=== PATIENT | female | born 1975 | race Caucasian/White ===

== ENCOUNTER 2020-01-12 11:50 | Outpatient (REF) | payer OTHER, SELFPAY ==
[2020-01-12 13:47] LABS: MANUAL DIFF FLAG NO
[2020-01-12 14:02] LABS: Basophils Absolute Auto 0.1 X10*3/uL (0.0-0.2); Basophils Percent Auto 0.8 % (0-2); Eosinophils Absolute Auto 0.3 X10*3/uL (0.0-0.4); Eosinophils Percent Auto 3.8 % (0-4); Hematocrit 36.4 % (37-47); Hemoglobin 11.2 g/dl (12.0-16.0); Imm Gran Abs Auto 0.03 X10*3/uL (0.00-0.03); Imm Gran Pct Auto 0.5 % (0.0-0.4); Lymphocytes Absolute Auto 1.6 X10*3/uL (1.2-4.9); Lymphocytes Percent Auto 24.8 % (20-40); Mean Corpuscular HGB Conc 30.8 g/dl (31.0-35.0); Mean Corpuscular Hemoglobin 24.7 pg (27.0-33.0); Mean Corpuscular Volume 80.4 fL (80-98); Mean Platelet Volume 10.3 fL (9.4-12.3); Monocytes Absolute Auto 0.4 X10*3/uL (0.1-1.2); Monocytes Percent Auto 5.7 % (2-11); Neutrophils Absolute Auto 4.2 X10*3/uL (2.0-8.3); Neutrophils Percent Auto 64.4 % (45-73); Platelet Count 239 X10*3/uL (160-400); Red Blood Count 4.53 X10*6/uL (4.20-5.50); Red Cell Distribution Width 18.6 % (11.0-16.0); White Blood Count 6.5 X10*3/uL (4.8-10.8)
[2020-01-12 14:26] LABS: Iron 350 mcg/dL (30-160); Percent Iron Saturation 88 % (15-50); Total Iron Binding Capacity 398 mcg/dL (228-428); Unsaturated Iron Binding 48 ug/dL
== END 2020-01-12 11:51 | disposition home or self-care (01) ==
LOC: HO.10HDL 11:50
PROVIDERS: Visit Provider Internal Medicine
DX: D64.9 Anemia, unspecified (principal)
CPT/HCPCS: 36415; 83540; 85025

== ENCOUNTER 2020-03-09 15:02 | Outpatient (REF) | payer OTHER, SELFPAY ==
--- NOTE | 2020-03-09 | XR_ITS ---
EXAMINATION: XR CHEST CLINICAL INFORMATION: Cough. Rule out pneumonia. COMPARISON: 07/30/2019 TECHNIQUE: 2 views of the chest were obtained. FINDINGS: The lungs are well expanded. There is no focal consolidation, edema, or effusion. No pneumothorax. The cardiomediastinal silhouette is within normal limits. No acute osseous abnormality. XR/XR chest 2V IMPRESSION: Clear lungs.
== END 2020-03-09 15:03 | disposition home or self-care (01) ==
LOC: HO.XRAY 15:02
PROVIDERS: PCP Internal Medicine; Visit Provider Internal Medicine
DX: R05 Cough (principal)
CPT/HCPCS: 71046

== ENCOUNTER 2020-05-11 11:17 | Outpatient (REF) | payer OTHER, SELFPAY ==
[2020-05-11 13:22] LABS: MANUAL DIFF FLAG NO
[2020-05-11 13:26] LABS: Basophils Absolute Auto 0.1 X10*3/uL (0.0-0.2); Basophils Percent Auto 0.8 % (0-2); Eosinophils Absolute Auto 0.2 X10*3/uL (0.0-0.4); Eosinophils Percent Auto 2.6 % (0-4); Hematocrit 38.3 % (37-47); Hemoglobin 12.2 g/dl (12.0-16.0); Imm Gran Abs Auto 0.01 X10*3/uL (0.00-0.03); Imm Gran Pct Auto 0.2 % (0.0-0.4); Lymphocytes Absolute Auto 1.8 X10*3/uL (1.2-4.9); Lymphocytes Percent Auto 27.8 % (20-40); Mean Corpuscular HGB Conc 31.9 g/dl (31.0-35.0); Mean Corpuscular Hemoglobin 27.2 pg (27.0-33.0); Mean Corpuscular Volume 85.5 fL (80-98); Mean Platelet Volume 10.9 fL (9.4-12.3); Monocytes Absolute Auto 0.4 X10*3/uL (0.1-1.2); Monocytes Percent Auto 6.6 % (2-11); Neutrophils Absolute Auto 4.1 X10*3/uL (2.0-8.3); Platelet Count 211 X10*3/uL (160-400); Red Blood Count 4.48 X10*6/uL (4.20-5.50); Red Cell Distribution Width 13.2 % (11.0-16.0); White Blood Count 6.6 X10*3/uL (4.8-10.8)
[2020-05-11 13:54] LABS: Alanine Aminotransferase 12 U/L (0-31); Albumin Level 4.2 g/dL (3.5-5.0); Alkaline Phosphatase 70 U/L (39-117); Anion Gap 11 (12-20); Aspartate Amino Transferase 19 U/L (5-31); Blood Urea Nitrogen 11 mg/dL (9-16); Calcium 9.2 mg/dL (8.4-10.2); Carbon Dioxide 29 mmol/L (22-29); Chloride 104 mmol/L (96-108); Estimated Glomerular Filt Rate > 60; Glucose Random 86 mg/dL (60-115); Iron 194 mcg/dL (30-160); Percent Iron Saturation 46 % (15-50); Potassium 4.3 mmol/L (3.3-5.1); Sodium 140 mmol/L (135-145); Total Iron Binding Capacity 421 mcg/dL (228-428); Total Protein 7.4 g/dL (6.5-8.0); Unsaturated Iron Binding 227 ug/dL
== END 2020-05-11 11:18 | disposition home or self-care (01) ==
LOC: HO.10HDL 11:17
PROVIDERS: Visit Provider Internal Medicine
DX: G21.9 Secondary parkinsonism, unspecified (principal); D64.9 Anemia, unspecified
CPT/HCPCS: 36415; 80053; 83540; 85025

== ENCOUNTER 2020-11-01 15:33 | Outpatient (REF) | payer OTHER, SELFPAY ==
[2020-11-01 16:16] LABS: MANUAL DIFF FLAG NO
[2020-11-01 16:19] LABS: Basophils Absolute Auto 0.1 X10*3/uL (0.0-0.2); Basophils Percent Auto 0.5 % (0-2); Eosinophils Absolute Auto 0.2 X10*3/uL (0.0-0.4); Eosinophils Percent Auto 1.8 % (0-4); Hemoglobin 11.3 g/dl (12.0-16.0); Imm Gran Abs Auto 0.03 X10*3/uL (0.00-0.03); Imm Gran Pct Auto 0.3 % (0.0-0.4); Lymphocytes Percent Auto 21.4 % (20-40); Mean Corpuscular HGB Conc 31.4 g/dl (31.0-35.0); Mean Corpuscular Hemoglobin 26.1 pg (27.0-33.0); Mean Corpuscular Volume 83.1 fL (80-98); Mean Platelet Volume 10.9 fL (9.4-12.3); Monocytes Absolute Auto 0.7 X10*3/uL (0.1-1.2); Monocytes Percent Auto 7.2 % (2-11); Neutrophils Absolute Auto 6.4 X10*3/uL (2.0-8.3); Neutrophils Percent Auto 68.8 % (45-73); Platelet Count 245 X10*3/uL (160-400); Red Blood Count 4.33 X10*6/uL (4.20-5.50); Red Cell Distribution Width 13.4 % (11.0-16.0); White Blood Count 9.3 X10*3/uL (4.8-10.8)
[2020-11-01 16:59] LABS: Alanine Aminotransferase 9 U/L (0-31); Albumin Level 4.1 g/dL (3.5-5.0); Alkaline Phosphatase 71 U/L (39-117); Anion Gap 12 (12-20); Aspartate Amino Transferase 17 U/L (5-31); Bilirubin Total 0.6 mg/dL (0.0-1.0); Blood Urea Nitrogen 12 mg/dL (9-16); C Reactive Protein 0.13 mg/dL (< or = 0.50); Calcium 9.3 mg/dL (8.4-10.2); Carbon Dioxide 24 mmol/L (22-29); Chloride 110 mmol/L (96-108); Estimated Glomerular Filt Rate > 60; Glucose Random 111 mg/dL (60-115); Potassium 4.1 mmol/L (3.3-5.1); Sodium 142 mmol/L (135-145); Total Protein 7.3 g/dL (6.5-8.0)
== END 2020-11-01 15:34 | disposition home or self-care (01) ==
LOC: HO.LAB 15:33
PROVIDERS: PCP Internal Medicine; Visit Provider Internal Medicine
DX: R10.9 Unspecified abdominal pain (principal); M54.9 Dorsalgia, unspecified; K21.9 Gastro-esophageal reflux disease without esophagitis
CPT/HCPCS: 36415; 80053; 85025; 86140

== ENCOUNTER 2020-11-07 08:24 | Outpatient (REF) | payer OTHER, SELFPAY ==
--- NOTE | ~2020-11-07 | US_ITS ---
EXAMINATION: US ABDOMEN COMPLETE CLINICAL INFORMATION: Right back pain. Right abdominal pain. COMPARISON: X-ray KUB 04/06/2019. CT abdomen pelvis 03/04/2012. TECHNIQUE: Real-time imaging of the abdominal viscera. FINDINGS: PANCREAS: Normal. ABDOMINAL AORTA: The proximal, mid, and distal segments are normal in caliber. INFERIOR VENA CAVA: Visualized portions are normal. LIVER: Normal. The liver is normal in size. The liver contour is normal. Parenchymal echogenicity is normal. No focal hepatic lesion. There is no intrahepatic biliary duct dilatation seen. GALLBLADDER: The gallbladder is completely opacified with stones. No gallbladder wall thickening or pericholecystic free fluid to suggest acute cholecystitis. COMMON BILE DUCT: Normal in caliber measuring 0.39 cm in diameter. RIGHT KIDNEY: Normal. No hydronephrosis. No renal calculi or focal parenchymal lesions. The kidney measures 12.3 cm in maximum dimension. LEFT KIDNEY: Normal. No hydronephrosis. No renal calculi or focal parenchymal lesions. The kidney measures 12.8 cm in maximum dimension. SPLEEN: Slightly enlarged. The spleen measures 13.1 cm in maximum dimension. FREE FLUID: None. US/US abdomen complete IMPRESSION: 1. Cholelithiasis without gallbladder wall thickening or pericholecystic free fluid to suggest acute cholecystitis. 2. Slightly enlarged spleen measuring up to 13.1 cm.
== END 2020-11-07 08:25 | disposition home or self-care (01) ==
LOC: HO.HMGCX 08:24
PROVIDERS: PCP Internal Medicine; Visit Provider Internal Medicine
DX: R10.9 Unspecified abdominal pain (principal); M54.5 Low back pain
CPT/HCPCS: 76700

== ENCOUNTER → 2021-01-09 12:58 | Outpatient (BNVA) | payer OTHER, SELFPAY | PROVIDERS: PCP Internal Medicine; Visit Provider Orthopaedic Surgery | DX: M65.4 Radial styloid tenosynovitis [de Quervain] (principal) | CPT/HCPCS: 20550; 99202; J1100 ==

== ENCOUNTER 2021-01-30 15:13 | Outpatient (REF) | payer OTHER, SELFPAY ==
--- NOTE | ~2021-01-30 | MM_ITS ---
EXAMINATION: MM SCREENING DIGITAL BREAST TOMOSYNTHESIS, BILATERAL CLINICAL INFORMATION: Screening. Asymptomatic. The lifetime risk of breast cancer based on the Tyrer-Cuzick Model is 9%. COMPARISON: Mammography: 11/29/2019, 11/23/2018, 11/12/2017 TECHNIQUE: Digital breast tomosynthesis is performed in both the craniocaudal and mediolateral oblique views along with computer-aided detection (CAD). Synthesized 2D images are generated from the tomosynthesis. FINDINGS: There are scattered areas of fibroglandular density (ACR BI-RADS breast composition Category b). There are no significant masses, abnormal calcifications, or other abnormalities. MM/MM tomosynthesis screening BI IMPRESSION: No mammographic evidence of malignancy. ASSESSMENT: BI-RADS 1: Negative RECOMMENDATION: Routine annual mammography screening. This patient's information was entered into a reminder system with a target due date for their next mammogram.
== END 2021-01-30 15:14 | disposition home or self-care (01) ==
LOC: HO.MAMMO 15:13
PROVIDERS: Visit Provider Internal Medicine
DX: Z12.31 Encounter for screening mammogram for malignant neoplasm of breast (principal)
CPT/HCPCS: 77063; 77067

== ENCOUNTER 2021-04-18 11:42 | Outpatient (REF) | payer OTHER, SELFPAY ==
[2021-04-18 13:32] LABS: MANUAL DIFF FLAG NO
[2021-04-18 13:34] LABS: Basophils Percent Auto 0.7 % (0-2); Eosinophils Absolute Auto 0.1 X10*3/uL (0.0-0.4); Eosinophils Percent Auto 2.2 % (0-4); Hematocrit 35.8 % (37.0-47.0); Hemoglobin 10.8 g/dl (12.0-16.0); Imm Gran Abs Auto 0.01 X10*3/uL (0.00-0.03); Imm Gran Pct Auto 0.2 % (0.0-0.4); Lymphocytes Absolute Auto 2.1 X10*3/uL (1.2-4.9); Lymphocytes Percent Auto 35.1 % (20-40); Mean Corpuscular HGB Conc 30.2 g/dl (31.0-35.0); Mean Corpuscular Hemoglobin 24.8 pg (27.0-33.0); Mean Corpuscular Volume 82.3 fL (80.0-98.0); Mean Platelet Volume 11.6 fL (9.4-12.3); Monocytes Absolute Auto 0.5 X10*3/uL (0.1-1.2); Monocytes Percent Auto 8.1 % (2-11); Neutrophils Absolute Auto 3.3 x10*3/uL (2.0-8.3); Neutrophils Percent Auto 53.7 % (45-73); Platelet Count 219 X10*3/uL (160-400); Red Blood Count 4.35 X10*6/uL (4.20-5.50); Red Cell Distribution Width 13.9 % (11.0-16.0)
[2021-04-18 13:53] LABS: Alanine Aminotransferase 15 U/L (0-31); Alkaline Phosphatase 73 U/L (39-117); Anion Gap 8 (12-20); Aspartate Amino Transferase 18 U/L (5-31); Bilirubin Total 0.8 mg/dL (0.0-1.0); Blood Urea Nitrogen 9 mg/dL (9-16); Calcium 9.2 mg/dL (8.4-10.2); Carbon Dioxide 27 mmol/L (22-29); Chloride 106 mmol/L (96-108); Cholesterol 164 mg/dL; Estimated Glomerular Filt Rate > 60; Glucose Fasting 87 mg/dL (60-99); HDL Cholesterol 57 mg/dL; LDL Cholesterol Calculated 91 mg/dl; Potassium 4.1 mmol/L (3.3-5.1); Sodium 137 mmol/L (135-145); Total Protein 7.2 g/dL (6.5-8.0); Triglycerides 81 mg/dL
== END 2021-04-18 11:43 | disposition home or self-care (01) ==
LOC: HO.10HDL 11:42
PROVIDERS: Visit Provider Internal Medicine
DX: Z01.818 Encounter for other preprocedural examination (principal); K21.9 Gastro-esophageal reflux disease without esophagitis; Z82.49 Family history of ischemic heart disease and other diseases of the circulatory system
CPT/HCPCS: 36415; 80053; 80061; 85025

== ENCOUNTER 2021-08-12 14:36 | Outpatient (REF) | payer OTHER, SELFPAY ==
[2021-08-12 14:50] LABS: MANUAL DIFF FLAG NO
[2021-08-12 15:07] LABS: Basophils Absolute Auto 0.1 X10*3/uL (0.0-0.2); Basophils Percent Auto 0.5 % (0-2); Eosinophils Absolute Auto 0.1 X10*3/uL (0.0-0.4); Eosinophils Percent Auto 0.7 % (0-4); Hematocrit 35.2 % (37.0-47.0); Imm Gran Abs Auto 0.03 X10*3/uL (0.00-0.03); Imm Gran Pct Auto 0.3 % (0.0-0.4); Lymphocytes Percent Auto 20.4 % (20-40); Mean Corpuscular HGB Conc 31.3 g/dl (31.0-35.0); Mean Corpuscular Hemoglobin 26.4 pg (27.0-33.0); Mean Corpuscular Volume 84.4 fL (80.0-98.0); Mean Platelet Volume 10.3 fL (9.4-12.3); Monocytes Absolute Auto 0.6 X10*3/uL (0.1-1.2); Monocytes Percent Auto 6.3 % (2-11); Neutrophils Absolute Auto 6.9 x10*3/uL (2.0-8.3); Neutrophils Percent Auto 71.8 % (45-73); Platelet Count 241 X10*3/uL (160-400); Red Blood Count 4.17 X10*6/uL (4.20-5.50); Red Cell Distribution Width 13.6 % (11.0-16.0); White Blood Count 9.6 X10*3/uL (4.8-10.8)
[2021-08-12 15:27] LABS: Anion Gap 11 (12-20); Blood Urea Nitrogen 16 mg/dL (9-16); Calcium 9.2 mg/dL (8.4-10.2); Carbon Dioxide 26 mmol/L (22-29); Chloride 108 mmol/L (96-108); Estimated Glomerular Filt Rate > 60; Glucose Random 90 mg/dL (60-115); Potassium 4.2 mmol/L (3.3-5.1); Sodium 141 mmol/L (135-145)
== END 2021-08-12 14:37 | disposition home or self-care (01) ==
LOC: HO.LAB 14:36
PROVIDERS: PCP Internal Medicine; Visit Provider Internal Medicine
DX: Z01.818 Encounter for other preprocedural examination (principal)
CPT/HCPCS: 36415; 80048; 85025

== ENCOUNTER 2021-11-19 09:47 | Outpatient (REF) | payer OTHER, SELFPAY ==
[2021-11-19 10:43] LABS: Hematocrit 34.7 % (37.0-47.0); Hemoglobin 10.9 g/dl (12.0-16.0); Mean Corpuscular HGB Conc 31.4 g/dl (31.0-35.0); Mean Corpuscular Hemoglobin 25.5 pg (27.0-33.0); Mean Corpuscular Volume 81.1 fL (80.0-98.0); Mean Platelet Volume 10.6 fL (9.4-12.3); Platelet Count 233 X10*3/uL (160-400); Red Blood Count 4.28 X10*6/uL (4.20-5.50); Red Cell Distribution Width 13.5 % (11.0-16.0); White Blood Count 6.4 X10*3/uL (4.8-10.8)
[2021-11-19 11:32] LABS: HCG Quantitative < 2 mIU/mL; TSH reflex Free T4 1.98 uIU/mL (0.32-4.0)
[2021-11-19 16:17] LABS: CT PCR NOT DETECTED (Not Detect.); NG PCR NOT DETECTED (Not Detect.)
[2021-11-23 00:27] LABS: HPV mRNA E6/E7 rflx Not Detected (Not Detected)
== END 2021-11-19 09:48 | disposition home or self-care (01) ==
LOC: HO.LAB 09:47
PROVIDERS: Visit Provider Obstetrics & Gynecology
DX: Z01.419 Encounter for gynecological examination (general) (routine) without abnormal findings (principal); Z11.51 Encounter for screening for human papillomavirus (HPV); N93.9 Abnormal uterine and vaginal bleeding, unspecified
CPT/HCPCS: 36415; 76830; 76856; 84443; 84702; 85027; 87491; 87591; 87624; 88142

== ENCOUNTER 2021-11-19 12:35 | Outpatient (REF) | payer OTHER, SELFPAY ==
--- NOTE | ~2021-11-19 | US_ITS ---
EXAMINATION: US PELVIC AND TRANSVAGINAL CLINICAL INFORMATION: Abnormal bleeding. COMPARISON: Previous pelvic ultrasound from [address] of the abdomen and pelvis from 2012. TECHNIQUE: Ultrasound of the pelvis was performed using both transabdominal and transvaginal transducers along with Doppler. Transvaginal imaging was performed due to inadequate visualization transabdominally. FINDINGS: The uterus is anteverted and measures 9 x 5.6 x 6.4 cm in dimension. The uterus is heterogeneous. No focal uterine lesion is seen. The endometrium is upper normal in thickness and heterogeneous-appearing measuring 1.4 cm. There are nabothian cysts in the cervix. The right ovary is normal appearing and measures 2.6 x 1.7 x 2.5 cm. The left ovary measures 3.4 x 2.5 x 2.7 cm. There is a 1.8 x 1.9 x 2.3 cm simple left ovarian cyst and an adjacent 1.4 x 0.9 x 1.2 cm paraovarian simple cyst. There is no fluid in the pelvis. US/US pelvic and transvaginal IMPRESSION: Heterogeneous-appearing uterus. Heterogeneous-appearing endometrium upper normal in thickness measuring 1.4 cm. Small simple left ovarian and paraovarian cysts.
== END 2021-11-19 12:36 | disposition home or self-care (01) ==
LOC: HO.HMGCX 12:35
PROVIDERS: PCP Internal Medicine; Visit Provider Obstetrics & Gynecology
DX: Z13.89 Encounter for screening for other disorder (principal)
CPT/HCPCS: 76830; 76856

== ENCOUNTER → 2021-11-20 14:34 | Outpatient (BNVA) | payer OTHER, SELFPAY | PROVIDERS: PCP Internal Medicine; Visit Provider Obstetrics & Gynecology | DX: N93.9 Abnormal uterine and vaginal bleeding, unspecified (principal) | CPT/HCPCS: 99212 ==

== ENCOUNTER 2021-11-22 09:15 | Day surgery (SDC) | payer OTHER, SELFPAY ==
[2021-11-22] VITALS (9 sets, daily range): BP systolic 112–131; BP diastolic 67–82; PULSE 54–80; RESP 12–18; TEMP 36.4–36.8; O2SAT 95–100; BMI 30.5
[2021-11-22 10:24] LABS: UPreg QC Valid YES; Urine Pregnancy NEGATIVE (NEGATIVE)
--- NOTE | 2021-11-22 10:27 | MHC.SHP ---
Pre-Procedural Eval Section A Date of Service: 11/22/21 The patient is an INPATIENT: No Changes since office visit: No Cold of Flu in the past 2 weeks, No New Medical Problems, No Changes in Medication and No Patient answered all questions The History & Physical has been completed within 30 days and I have reviewed it.: Yes Section B Chief Complaint: bleeding Allergies: Allergies Allergy/AdvReac Type Severity Reaction Status Date / Time Latex Allergy Mild Rash Uncoded 11/22/21 10:17 Plan Diagnosis/Plan: Unchanged I have reviewed the history and physical and performed a pertinent physical examination on my patient. No changes have occurred unless specified.
--- NOTE | 2021-11-22 10:29 | HO.ANESPROP2 ---
PMF Active Problems Active Problems: All Active Problems (Updated 11/19/21 @ 09:42 by Frankie El MD) Abnormal uterine bleeding (AUB) (Acute) Well woman exam (Acute) De Quervain's tenosynovitis, left (Acute) De Quervain's tenosynovitis, right (Acute) Family History Family history of problems with anesthesia: No Surgical History Surgical History History of breast lift History of cholecystectomy Hx of abdominoplasty History of Problems with Anesthesia: No Social History Social History Patient Tobacco Use Status: Never used Tobacco Use of substances other than those prescribed or required for medical reasons: No Are you DNR?: No Advance Directives: No Advance Directives Information Provided: Yes Current occupational status: employed 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 - [employer] Meds Allergies Allergy/AdvReac Type Severity Reaction Status Date / Time Latex Allergy Mild Rash Uncoded 11/22/21 10:17 Home Medications Medication Instructions Recorded Confirmed Last Taken Type dextroamphetamine-amphetamine 20 20 mg PO DAILY 01/09/21 Unknown History mg tablet (Adderall) Exam Exam Date and Time: November 22, 2021 1029 Height,Weight and Vital Signs: Height 5 ft 4 in Weight 80.739 kg Last Vital Signs Temp 98.2 F 11/22/21 10:25 Pulse 54 11/22/21 10:25 Resp 16 11/22/21 10:25 BP 112/67 11/22/21 10:25 Pulse Ox 100 11/22/21 10:25 O2 Del Method 11/22/21 10:25 Pertinent Lab Results Pertinent Lab Results: Laboratory Tests 11/22/21 10:06 Urine Test NEGATIVE Airway Mallampati Class: II TM Dist: >3cm Neck ROM: Full Assessment and Plan Assessment Anesthesia Assessment: Anesthesia Plan Discussed and Chart Reviewed Final Anesthetic Review Family History of Problems with Anesthesia: No History of Problems with Anesthesia: No NPO: Yes ASA Class: II Final Preanesthetic Review: No Changes in Pt Med Stat, Meds/Allgs Chart Reviewed, Consent Obtained/Reviewed and Anes Risks/Benef Reviewed Patient Risk: Low Procedure Risk: Low Anesthetic Plan Anesthetic Plan: GA Disposition: Standard PACU
[2021-11-22] MEDS: Lactated Ringers 1,000 ML 100 ML IVCONT (10:35)
--- NOTE | 2021-11-22 12:02 | PM.OP ---
Brief Operative Note Date of Service: 11/22/21 Pre-op diagnosis: Abnormal uterine bleeding Post-op diagnosis: same Procedure: Hysteroscopy D&C, Polypectomyx2 Surgeon: Frankie El MD Anesthesia: GLMA Was an Termite Exterminator used for this Procedure?: No Estimated blood loss (mL): 0 Pathology: other (Endometrial Scrapping. 2 Polyps) Condition: stable Disposition: PACU
--- NOTE | 2021-11-22 12:03 | P.OP_ITS ---
Operative Note Operative Note Date of Service: 11/22/21 Narrative: Preop Diagnosis: Abnormal uterine bleeding Operation: Diagnostic Hysteroscopy, Dilataion & Curettage and polypectomyx2 Post Op Diagnosis:2 Endometrial Polyps QBL: Minimal Anesthesia: GLMA Surgeon: Frankie El MD Mobile Home Technician: None Complication: None Pathology: Endometrial Scrapings, 2 Endometrial polyps Procedure: The patient was put in the dorsal lithotomy position, scrubbed, and draped in the usual manner. A sterile speculum was inserted in the patient's vagina. The anterior lip of the cervix was grasped with a single tooth tenaculum. The cervix was dilated up to 5 mm, then the scope was inserted in the patient's uterus. Inspection revealed 2 endometrial polyps 0.3 cm each. The Myosure Reach device was used; it was introduced through the operative channel and 2 polypectomies were done with no complications. This was followed by sharp curettings with moderate amount of tissues retrieved. At the end of the procedure, all instruments were taken out of the patient uterine and vaginal cavity. The single tooth tenaculum was removed and homeostasis was assured using pressure,. The patient tolerated the procedure well and was transferred to the PACU in a stable condition.
[2021-11-22] MEDS: Acetaminophen 325 MG TABLET 650 MG PO (12:28)
[2021-11-22] MEDS: ondansetron HCL 4 MG/2 ML VIAL IVPUSH (13:20)
== END 2021-11-22 14:02 | disposition home or self-care (01) ==
PROVIDERS: PCP Internal Medicine; Visit Provider Obstetrics & Gynecology
PROC: 0UDB8ZZ Extraction of Endometrium, Via Natural or Artificial Opening Endoscopic (ICD-10-PCS; CPT 58558; principal; 2021-11-22 11:50)
DX: N93.9 Abnormal uterine and vaginal bleeding, unspecified (principal); N84.0 Polyp of corpus uteri; Z90.49 Acquired absence of other specified parts of digestive tract; Z91.040 Latex allergy status; Z98.890 Other specified postprocedural states
CPT/HCPCS: 58558; 81025; 88305; J1100; J2250; J2405; J3010

== ENCOUNTER → 2021-12-04 10:00 | Outpatient (BNVA) | payer OTHER, SELFPAY | PROVIDERS: PCP Internal Medicine; Visit Provider Obstetrics & Gynecology | DX: N93.9 Abnormal uterine and vaginal bleeding, unspecified (principal); Z98.890 Other specified postprocedural states | CPT/HCPCS: 99212 ==

== ENCOUNTER 2022-01-31 15:39 | Outpatient (REF) | payer OTHER, SELFPAY ==
--- NOTE | ~2022-01-31 | MM_ITS ---
EXAMINATION: MM SCREENING DIGITAL BREAST TOMOSYNTHESIS, BILATERAL CLINICAL INFORMATION: Screening. Asymptomatic. History mastopexy. COMPARISON: Mammography: 01/30/2021, 11/29/2019, 11/23/2018 TECHNIQUE: Digital breast tomosynthesis is performed in both the craniocaudal and mediolateral oblique views along with computer-aided detection (CAD). Synthesized 2D images are generated from the tomosynthesis. FINDINGS: There are scattered areas of fibroglandular density (ACR BI-RADS breast composition Category b). There is minor bilateral scarring consistent with the history mastopexy since prior imaging. There is no significant mass or architectural abnormality or abnormal calcifications. Small low left axillary tail nodes stable. The axilla and skin contours are unremarkable. MM/MM tomosynthesis screening BI IMPRESSION: No mammographic evidence of malignancy. ASSESSMENT: BI-RADS 2: Benign RECOMMENDATION: Routine annual mammography screening. This patient's information was entered into a reminder system with a target due date for their next mammogram.
== END 2022-01-31 15:40 | disposition home or self-care (01) ==
LOC: HO.MAMMO 15:39
PROVIDERS: PCP Internal Medicine; Visit Provider Obstetrics & Gynecology
DX: Z12.31 Encounter for screening mammogram for malignant neoplasm of breast (principal)
CPT/HCPCS: 77063; 77067

== ENCOUNTER 2022-03-06 10:44 | Outpatient (REF) | payer OTHER, SELFPAY ==
[2022-03-06 11:47] LABS: Hemoglobin 10.4 g/dl (12.0-16.0); Mean Corpuscular HGB Conc 30.6 g/dl (31.0-35.0); Mean Corpuscular Hemoglobin 24.6 pg (27.0-33.0); Mean Corpuscular Volume 80.4 fL (80.0-98.0); Mean Platelet Volume 10.4 fL (9.4-12.3); Platelet Count 224 X10*3/uL (160-400); Red Blood Count 4.23 X10*6/uL (4.20-5.50); Red Cell Distribution Width 13.5 % (11.0-16.0); White Blood Count 7.1 X10*3/uL (4.8-10.8)
== END 2022-03-06 10:45 | disposition home or self-care (01) ==
LOC: HO.LAB 10:44
PROVIDERS: PCP Internal Medicine; Visit Provider Obstetrics & Gynecology
DX: N93.9 Abnormal uterine and vaginal bleeding, unspecified (principal)
CPT/HCPCS: 36415; 85027; 99212

== ENCOUNTER 2022-04-17 16:23 | Outpatient (REF) | payer OTHER, SELFPAY ==
--- NOTE | ~2022-04-17 | XR_ITS ---
EXAMINATION: XR SHOULDER, RIGHT CLINICAL INFORMATION: Right shoulder pain COMPARISON: None TECHNIQUE: AP external rotation, Grashey, scapular Y, and axillary views of the right shoulder. FINDINGS: The bones and soft tissues are normal. No fracture. Glenohumeral and acromioclavicular alignment is anatomic with normal joint space. No abnormal soft tissue calcifications. XR/XR shoulder RT min 2V IMPRESSION: Unremarkable right shoulder exam.
== END 2022-04-17 16:24 | disposition home or self-care (01) ==
LOC: HO.HOSX 16:23
PROVIDERS: Visit Provider Physician Assistant
DX: M75.101 Unspecified rotator cuff tear or rupture of right shoulder, not specified as traumatic (principal)
CPT/HCPCS: 20610; 73030; 99202; J1040

== ENCOUNTER 2022-04-29 08:34 | Outpatient (REF) | payer OTHER, SELFPAY ==
[2022-04-29 10:40] LABS: Hematocrit 34.2 % (37.0-47.0); Hemoglobin 10.2 g/dl (12.0-16.0); Mean Corpuscular HGB Conc 29.8 g/dl (31.0-35.0); Mean Corpuscular Hemoglobin 23.6 pg (27.0-33.0); Mean Corpuscular Volume 79.2 fL (80.0-98.0); Mean Platelet Volume 10.4 fL (9.4-12.3); Platelet Count 221 X10*3/uL (160-400); Red Blood Count 4.32 X10*6/uL (4.20-5.50); Red Cell Distribution Width 13.9 % (11.0-16.0); White Blood Count 6.5 X10*3/uL (4.8-10.8)
[2022-04-29 15:13] LABS: CT PCR NOT DETECTED (Not Detect.); NG PCR NOT DETECTED (Not Detect.)
== END 2022-04-29 08:35 | disposition home or self-care (01) ==
LOC: HO.LAB 08:34
PROVIDERS: PCP Internal Medicine; Visit Provider Obstetrics & Gynecology
DX: N93.9 Abnormal uterine and vaginal bleeding, unspecified (principal)
CPT/HCPCS: 0353U; 36415; 81025; 85027; 99212

== ENCOUNTER 2022-04-29 09:49 | Outpatient (REF) | payer OTHER, SELFPAY | END 2022-04-29 09:50 | disposition home or self-care (01) | LOC: HO.LNP 09:49 | PROVIDERS: Visit Provider Obstetrics & Gynecology | DX: Z13.89 Encounter for screening for other disorder (principal) ==

== ENCOUNTER → 2022-05-20 08:00 | Outpatient (BNVA) | payer OTHER, SELFPAY | PROVIDERS: PCP Internal Medicine; Visit Provider Physician Assistant | DX: M75.101 Unspecified rotator cuff tear or rupture of right shoulder, not specified as traumatic (principal) | CPT/HCPCS: 99212 ==

== ENCOUNTER 2022-06-18 09:00 | Outpatient (RCR) | payer OTHER, SELFPAY ==
--- NOTE | 2022-04-30 10:13 | MHC.PT.EP ---
[facility] [place] Office [place] Office [place] Office [address] Ghulam Salamanca [address] [phone] F: [phone] F: [phone] F: [phone] F: [phone] Physical Therapy Plan of Care Date of Evaluation: Date of Surgery: none Diagnosis: rotator cuff tear or rupture of R shoulder. Assessment: Patient is a 46 year old r handed female who presents with s/s consistent with R shoulder pain, rotator cuff tear or rupture or R shoulder. 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 Patient past medical history is unremarkable. Current impairments include pain, posture, ROM, strength, activity tolerance and functional mobility. Functional limitations include decreased ability to reach, lift, push, pull, carry and sleep. Patient is motivated with good rehab potential. Skilled PT will address impairments and functional limitations in order to achieve goals. Frequency and Duration: The patient will be seen 2x/week for 5 weeks Short Term Goals: I with HEP - 2 weeks AROM flexion and scaption - 120 - 3 weeks min tight pec, TTP absent - 3 weeks Skilled Nursing Goals: SPADI 30/130 or better - 5 weeks Strength 4/5 grossly - 5 weeks ER/IR arc 120 or better - 5 weeks Flex and Scaption AROM 140 or better - 5 weeks Return to all activities 2/10 max pain - 5 weeks Treatment Plan: Modalities to reduce pain, spasms and effusion. Manual therapy to restore motion and function. Therapeutic exercise to improve strength and flexibility. Neuromuscular re-education for posture and balance. Therapeutic activities to return to functional activities of daily living. Electronically signed by: Vinicio Bishop, PT Please sign and return to therapist. Thank you for your referral.
--- NOTE | 2022-09-01 08:46 | MHC.PT.DC ---
[facility] [place] Office [place] Office [place] Office [address] Ghulam Salamanca [address] [phone] F: [phone] F: [phone] F: [phone] F: [phone] Physical Therapy Discharge Report Diagnosis: rotator cuff tear or rupture of R shoulder. Date of Surgery: none Date of Evaluation: 04/30/22 Date of Discharge: 07/08/22 Treatments to Date: 10 Cancellations to Date: No Shows to Date: Discharge Status: Improved Function Independent with HEP Discharge Summary: 06/18/22: pt has progressed well over the course of skilled PT. she has seen improvement with pain, ROM, strength, and SPADI score. SPADI 34/130. She is I with HEP. Min pec tightness. Max pain is still 8/10 when laying on L side, but otherwise much less. AROM is WNL except for IR, we reviewed a stretch for this today. Strength is 4/5 grossly in R shoulder. She knows how to manage and understands limitations at this time. she does have improved postural awareness. we will d/c to HEP at this time. 06/10/2022: No pain reported during session. She demonstrates good carry over with exercises needing min to no cues throughout for form. Gets relief with manual still. Reports her pain is much better than when she started PT. Advised continuing with exercises at home. 06/04/22: pt progressing well still. updated HEP and planning to taper to HEP. 06/03/22: reduced s/s overall. increased postural awareness. still with TP present in b/l UT/LS. 05/27/22: pt progressing well with skilled PT. improving ROM and reduced discomfort. progress cuff strength as tolerated. 05/23/22: pt with reduced tissue tension and improved comfort. progressing with postural ex. 05/21/22: pt with improved postural awareness. tightness relieved with program today. we will continue to address posture and flexibility before progressing strength. 05/16/22: pt still with tightness and soreness in R shoulder. discussed postural changes and reducing compensation. 05/05/2022: Pt having more discomfort today at baseline due to working. She commonly has increase in pain after work. Modified session today to be within tolerance so reduced some sets and reps. Continued with manual as she felt some relief with this after last session. Slight improvement in pain at end of session today. 05/02/2022: Initiated postural and RC gentle strengthening program. Pt sore throughout but not much more sore than current baseline. Added gentle STM and joint mobs posteriorly with good tolerance. Carson some relief with this although still sore at end of session. Updated HEP to reflect new exercises and printout provided. Patient is a 46 year old r handed female who presents with s/s consistent with R shoulder pain, rotator cuff tear or rupture or R shoulder. 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 Patient past medical history is unremarkable. Current impairments include pain, posture, ROM, strength, activity tolerance and functional mobility. Functional limitations include decreased ability to reach, lift, push, pull, carry and sleep. Patient is motivated with good rehab potential. Skilled PT will address impairments and functional limitations in order to achieve goals. Electronically signed by: Vinicio Bishop, PT Please sign and return to therapist. Thank you for your referral.
== END 2022-09-01 09:24 | disposition home or self-care (01) ==
LOC: HO.PTCHIC 09:00
PROVIDERS: PCP Internal Medicine; Visit Provider Physician Assistant
DX: M75.101 Unspecified rotator cuff tear or rupture of right shoulder, not specified as traumatic (principal)
CPT/HCPCS: 97110; 97140; 97161

== ENCOUNTER → 2022-07-01 14:01 | Outpatient (BNVA) | payer OTHER, SELFPAY | PROVIDERS: PCP Internal Medicine; Visit Provider Physician Assistant ==

== ENCOUNTER → 2022-08-04 10:54 | Outpatient (BNVA) | payer OTHER, SELFPAY | PROVIDERS: PCP Internal Medicine; Visit Provider Physician Assistant | DX: M75.101 Unspecified rotator cuff tear or rupture of right shoulder, not specified as traumatic (principal) | CPT/HCPCS: 20610; 99212; J1040 ==

== ENCOUNTER 2022-08-06 16:24 | Outpatient (REF) | payer OTHER, SELFPAY ==
[2022-08-06 16:36] LABS: MANUAL DIFF FLAG NO
[2022-08-06 17:20] LABS: Basophils Absolute Auto 0.1 X10*3/uL (0.0-0.2); Basophils Percent Auto 0.7 % (0-2); Eosinophils Percent Auto 0.3 % (0-4); Hemoglobin 10.1 g/dl (12.0-16.0); Imm Gran Abs Auto 0.03 X10*3/uL (0.00-0.03); Imm Gran Pct Auto 0.3 % (0.0-0.4); Lymphocytes Absolute Auto 1.6 X10*3/uL (1.2-4.9); Lymphocytes Percent Auto 18.2 % (20-40); Mean Corpuscular HGB Conc 29.7 g/dl (31.0-35.0); Mean Corpuscular Hemoglobin 23.2 pg (27.0-33.0); Mean Platelet Volume 10.5 fL (9.4-12.3); Monocytes Absolute Auto 0.6 X10*3/uL (0.1-1.2); Monocytes Percent Auto 6.4 % (2-11); Neutrophils Absolute Auto 6.6 x10*3/uL (2.0-8.3); Neutrophils Percent Auto 74.1 % (45-73); Platelet Count 266 X10*3/uL (160-400); Red Blood Count 4.36 X10*6/uL (4.20-5.50); Red Cell Distribution Width 14.7 % (11.0-16.0); White Blood Count 8.9 X10*3/uL (4.8-10.8)
[2022-08-06 17:28] LABS: Estimated Average Glucose 100 mg/dL; Hemoglobin A1C 90.5941 umol/L; Hemoglobin A1c % 5.1 %
[2022-08-06 18:06] LABS: Alanine Aminotransferase 10 U/L (0-31); Albumin Level 4.1 g/dL (3.5-5.0); Alkaline Phosphatase 69 U/L (39-117); Anion Gap 9 (12-20); Aspartate Amino Transferase 14 U/L (5-31); Bilirubin Total 0.3 mg/dL (0.0-1.0); Blood Urea Nitrogen 16 mg/dL (9-16); C Reactive Protein < 0.04 mg/dL (< or = 0.50); Calcium 9.1 mg/dL (8.4-10.2); Carbon Dioxide 30 mmol/L (22-29); Chloride 108 mmol/L (96-108); Estimated Glomerular Filt Rate > 60; Glucose Random 96 mg/dL (60-115); Potassium 4.9 mmol/L (3.3-5.1); Sodium 142 mmol/L (135-145); Total Protein 7.1 g/dL (6.5-8.0)
[2022-08-06 18:27] LABS: Free T4 (Free Thyroxine) 0.94 ng/dL (0.71-1.85); Insulin 21 uU/mL (2-29); Thyroid Stimulating Hormone 0.77 uIU/mL (0.32-4.0); Vitamin B12 352 pg/mL (200-900)
[2022-08-06 18:38] LABS: Erythrocyte Sedimentation Rate 27 MM/HR (0-20)
== END 2022-08-06 16:25 | disposition home or self-care (01) ==
LOC: HO.LAB 16:24
PROVIDERS: PCP Internal Medicine; Visit Provider Internal Medicine
DX: R07.9 Chest pain, unspecified (principal); R53.83 Other fatigue
CPT/HCPCS: 36415; 80053; 82607; 83036; 83525; 84439; 84443; 85025; 85652; 86140

== ENCOUNTER 2022-08-11 16:10 | Outpatient (REF) | payer OTHER, SELFPAY ==
[2022-08-11 17:55] LABS: Immature Retic Fraction 11.9 % (3.0-15.9); Retic HGB Equivalent 25.4 pg (30.0-35.0); Reticulocyte Percent 1.2 % (0.5-1.8)
[2022-08-11 18:25] LABS: Iron 29 mcg/dL (30-160)
[2022-08-11 18:35] LABS: Percent Iron Saturation 7 % (15-50); Total Iron Binding Capacity 394 mcg/dL (228-428); Unsaturated Iron Binding 365 ug/dL
== END 2022-08-11 16:11 | disposition home or self-care (01) ==
LOC: HO.LAB 16:10
PROVIDERS: PCP Internal Medicine; Visit Provider Internal Medicine
DX: D64.9 Anemia, unspecified (principal)
CPT/HCPCS: 36415; 83540; 85045

== ENCOUNTER → 2022-08-14 07:58 | Outpatient (REF) | payer OTHER, SELFPAY ==
--- NOTE | 2022-08-14 08:01 | CA_ITS ---
Acquisition Time: 2022-08-14 08:11:33 Total Exercise Time: 00:10:30 Test Indications: CP Medications: SEE H Protocol: OSBALDO Max HR: 162 BPM 92% of Pred: 175 BPM Max BP: 134/072 mmHG Max Work Load: 12.5 METS PT EXERCISED ON STD OSBALDO PROTOCOL FOR 10:30 INTO STAGE 4. MAX HR 162-92%MAX. NO CP OR SOB. NO EKG CHANGES. SOME LIGHTHEADEDNESS MAY BE RELATED TO MILD ANEMIA. CLINICALLY AND ELEC NEG. Referred By: Ash Joshua Overread By: NATY JOSHUA MD
== END ==
LOC: HO.CARD 07:58
PROVIDERS: Visit Provider Internal Medicine
DX: R07.9 Chest pain, unspecified (principal)
CPT/HCPCS: 93017

== ENCOUNTER 2022-11-27 08:34 | Outpatient (AMB) | payer OTHER, SELFPAY ==
[2022-11-27 08:54] VITALS: BP 110/72; BMI 28.8
--- NOTE | 2022-11-27 08:54 | A.OFFVIS_ITS ---
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 No complaints. 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 - [employer] Female Reproductive History Menstrual Age of Menarche: 16 Duration of menses: 3-5 days Date of last menstrual period: 11/16/22 Total pregnancies: 2 Full term: 2 Number of Living Children: 2 Date of last pap smear: 11/21/21 Date of Mammogram: 01/31/22 Review of Systems Const All systems reviewed & are unremarkable except as noted in HPI and below Card Reports as per HPI Resp Reports as per HPI GI Reports as per HPI and Reports no additional complaints Reports as per HPI Physical Exam Const General: cooperative, healthy appearing and comfortable Chest Chest palpation & inspection: normal inspection of the chest and normal palpation of entire chest wall Breast/axilla inspection: normal inspection of the breasts and normal inspection of the axillae Breast/axilla palpation: normal palpation of the breasts, normal palpation of the axillae and no axillary lymphadenopathy Resp Effort & Inspection: normal respiratory effort Auscultation: clear to auscultation bilaterally Percussion: percussion normal Cardio Palpation: normal PMI Rate: regular rate Rhythm: regular rhythm Heart sounds: no murmurs and no rubs Peripheral pulses: Peripheral pulses 2+ throughout GI Inspection: Yes normal to inspection Palpation (GI): Soft to palpation, nontender, no guarding, not rigid and No hepatosplenomegaly present Percussion: Yes normal to percussion Auscultation: normal bowel sounds Rectal Exam - Female: deferred General: Yes bladder normal to palpation External Female Exam: No lesion Speculum Exam - Vagina: normal appearance of the vagina, normal palpation, normal vaginal discharge and not erythematous Speculum Exam - Cervix: normal appearance of the cervix and normal palpation Bimanual exam- vagina & uterus: normal bimanual exam, normal palpation, uterine size normal, bladder normal to palpation, consistency normal and normal palpation Bimanual Exam- Adnexa, other: normal adnexae, no masses and no tenderness Assessment & Plan Assessment & Plan (1) Well woman exam: Code(s): Z01.419 - Encounter for gynecological examination (general) (routine) without abnormal findings Plan: Cotesting not indicated this year. Mammogram ordered for 02/12. Counseled the patient about the recommended dietary allowance of 1000 mg of Calcium & 600 IU of vitamin D. The patient was instructed to perform monthly self-breast exams and to schedule an annual exam in a year; the patient was referred by PCP to GI for screening colonoscopy, has an appointment scheduled in February. All questions answered and the patient verbalized understanding. Instructed the patient to schedule annual exam in a year Orders: Orders MM screening mammo BI 2 Months Z12.31 - Encounter for screening mammogram for malignant neoplasm of breast Referrals Gastroenterology Referral Z12.11 - Encounter for screening for malignant neoplasm of colon Coding Level of Care Code Est Pt Prev Care 40-64y([id number]) Diagnoses Well woman exam Z01.419
== END 2022-11-27 09:11 | disposition home or self-care (01) ==
PROVIDERS: Visit Provider Obstetrics & Gynecology
DX: Z01.419 Encounter for gynecological examination (general) (routine) without abnormal findings (principal)
CPT/HCPCS: 99396

== ENCOUNTER → 2022-11-27 08:34 | Outpatient (BNVA) | payer OTHER, SELFPAY | PROVIDERS: Visit Provider Obstetrics & Gynecology ==

== ENCOUNTER 2023-01-16 10:24 | Outpatient (REF) | payer OTHER, SELFPAY ==
[2023-01-16 10:51] LABS: MANUAL DIFF FLAG NO
[2023-01-16 10:56] LABS: Basophils Percent Auto 0.8 % (0-2); Eosinophils Absolute Auto 0.1 X10*3/uL (0.0-0.4); Eosinophils Percent Auto 1.5 % (0-4); Hematocrit 34.7 % (37.0-47.0); Hemoglobin 10.6 g/dl (12.0-16.0); Imm Gran Abs Auto 0.01 X10*3/uL (0.00-0.03); Imm Gran Pct Auto 0.2 % (0.0-0.4); Lymphocytes Absolute Auto 1.3 X10*3/uL (1.2-4.9); Lymphocytes Percent Auto 24.8 % (20-40); Mean Corpuscular HGB Conc 30.5 g/dl (31.0-35.0); Mean Corpuscular Hemoglobin 23.9 pg (27.0-33.0); Mean Corpuscular Volume 78.3 fL (80.0-98.0); Monocytes Absolute Auto 0.4 X10*3/uL (0.1-1.2); Monocytes Percent Auto 6.8 % (2-11); Neutrophils Absolute Auto 3.5 x10*3/uL (2.0-8.3); Neutrophils Percent Auto 65.9 % (45-73); Platelet Count 204 X10*3/uL (160-400); Red Blood Count 4.43 X10*6/uL (4.20-5.50); Red Cell Distribution Width 15.1 % (11.0-16.0); White Blood Count 5.3 X10*3/uL (4.8-10.8)
[2023-01-16 11:37] LABS: Alanine Aminotransferase 20 U/L (0-31); Albumin Level 4.1 g/dL (3.5-5.0); Alkaline Phosphatase 70 U/L (39-117); Anion Gap 11 (12-20); Aspartate Amino Transferase 27 U/L (5-31); Bilirubin Direct 0.3 mg/dL (0.0-0.5); Bilirubin Total 0.9 mg/dL (0.0-1.0); Blood Urea Nitrogen 13 mg/dL (9-16); Calcium 9.3 mg/dL (8.4-10.2); Carbon Dioxide 24 mmol/L (22-29); Chloride 109 mmol/L (96-108); Estimated Glomerular Filt Rate > 60; Glucose Random 78 mg/dL (60-115); Iron 53 mcg/dL (30-160); Percent Iron Saturation 17 % (15-50); Sodium 140 mmol/L (135-145); Total Iron Binding Capacity 310 mcg/dL (228-428); Total Protein 7.3 g/dL (6.5-8.0); Unsaturated Iron Binding 257 ug/dL
== END 2023-01-16 10:25 | disposition home or self-care (01) ==
LOC: HO.10HDL 10:24
PROVIDERS: Visit Provider Internal Medicine
DX: M54.9 Dorsalgia, unspecified (principal); R63.4 Abnormal weight loss; D50.8 Other iron deficiency anemias
CPT/HCPCS: 36415; 80048; 80076; 83540; 85025

== ENCOUNTER 2023-01-28 08:10 | Outpatient (AMB) | payer OTHER, SELFPAY ==
[2023-01-28 08:16] VITALS: BP 102/75; PULSE 93; BMI 26.3
--- NOTE | 2023-01-28 08:16 | A.OFFVIS_ITS ---
Intake Vital Signs 01/28/23 08:16 Height 5 ft 4 in Weight 153 lb BMI 26.3 BP 102/75 Blood Pressure Location Lt brachial Position Sitting Pulse 93 Intake Visit Reasons: Colonoscoopy Screening Intake Note: Patient new consult for 1st pre colonoscopy screening Patient cc: acid reflex with burning sensation and constipation on and off, denies any other GI issues. 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
--- NOTE | 2023-01-28 08:23 | A.OFFVIS_ITS ---
Intake Vital Signs 01/28/23 08:16 01/28/23 08:27 Height 5 ft 4 in Weight 153 lb BMI 26.3 26.3 BP 102/75 Blood Pressure Location Lt brachial Position Sitting Pulse 93 Intake Visit Reasons: Colonoscoopy Screening Allergies Latex Allergy (Mild, Uncoded 11/27/22 08:58) Rash Medication List - Last Reconciled 01/28/23 by Lelo Aguilar PA-C dextroamphetamine-amphetamine 20 mg (Adderall) 20 mg PO DAILY ferrous sulfate 325 mg PO DAILY 8 weeks HPI HPI Comments History of Present Illness Details A 47 y/o female referred for screening colonoscopy- She has been taking iron supplement prn Menses- normal- constipation- due to meds- in she has not been able to get have a consistent pattern Acid reflux- omperazole prn- EGD/ normal colonoscopy-2019- Dr. 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 Female Reproductive History Menstrual Age of Menarche: 16 Review of Systems Const All systems reviewed & are unremarkable except as noted in HPI and below Card Denies chest pain and Denies dyspnea Resp Denies dyspnea GI Denies abdominal pain, Denies change in bowel habits, Denies nausea and Denies vomiting Physical Exam Vital Signs: Last Vital Signs Pulse 93 01/28/23 08:16 BP 102/75 01/28/23 08:16 BMI result Body Mass Index 26.3 Const General: cooperative, healthy appearing, comfortable and no acute distress Orientation/consciousness: patient oriented x3 Limitations: no limitations Eyes Sclerae: sclerae normal Resp Effort & Inspection: normal respiratory effort and able to speak in complete sentences Cardio Rate: regular rate Rhythm: regular rhythm Heart sounds: S1 normal heart sound present and S2 normal heart sound present GI Palpation (GI): Soft to palpation and nontender Auscultation: normal bowel sounds Skin General skin exam: no rashes or lesions noted Neuro General: patient oriented x3 Extrem General: Yes full ROM Psych Appearance: grossly normal and well kempt Mental Status: mental status grossly normal Speech and movement: Normal speech and movement present and Clear speech present Affect: normal affect Attitude: cooperative Thought process: Normal thought process present Thought content: Normal thought content present Insight: Good insight present (Psych) Judgement: Good judgement present (Psych) Assessment & Plan Assessment & Plan (1) Anemia: Comment: Review/labs Code(s): D64.9 - Anemia, unspecified (2) Acid reflux: Comment: Check H pylori if positive will treat Code(s): K21.9 - Gastro-esophageal reflux disease without esophagitis Plan: HP stool antigen once submitted start ppi (3) Chronic constipation: Comment: Inconsistent bowel regimen, she you trial to fiber supplements she is unable to get enough fiber in her diet Colon prep would be an adequate until she has more consistent bowel pattern EGD colonoscopy 2019 Dr. Epps Code(s): K59.09 - Other constipation Plan: HFD- fiber supplement Orders: Orders H pylori Ag Stool 01/28/23 A04.8 - Other specified bacterial intestinal infections Medications: New calcium polycarbophil (Fiber Laxative (calcium polycarbophil)) 1,250 mg (2 x 625 mg) PO DAILY 30 days 60 tabs 3RF pantoprazole 20 mg PO QAM 30 days PRN 30 tabs 6RF reflux sucralfate 1 g PO BID 4 weeks 56 tabs 0RF Patient Instructions: HP stool antigen pantoprazole HFD consistent-bowel regimen Coding Level of Care Code New Pt Level 3 (37173) Diagnoses Anemia D64.9 Acid reflux K21.9 Chronic constipation K59.09 Time Spent (min) 30
[2023-01-28 08:27] VITALS: BMI 26.3
== END 2023-01-28 08:51 | disposition home or self-care (01) ==
PROVIDERS: PCP Internal Medicine; Visit Provider Physician Assistant
DX: D64.9 Anemia, unspecified (principal); K21.9 Gastro-esophageal reflux disease without esophagitis; K59.09 Other constipation
CPT/HCPCS: 99203

== ENCOUNTER → 2023-01-28 08:10 | Outpatient (BNVA) | payer OTHER, SELFPAY | PROVIDERS: PCP Internal Medicine; Visit Provider Physician Assistant | DX: D64.9 Anemia, unspecified (principal); K21.9 Gastro-esophageal reflux disease without esophagitis; K59.09 Other constipation | CPT/HCPCS: 99202 ==

== ENCOUNTER 2023-02-06 15:03 | Outpatient (REF) | payer OTHER, SELFPAY | END 2023-02-06 15:04 | disposition home or self-care (01) | LOC: HO.LAB 15:03 | PROVIDERS: PCP Internal Medicine; Visit Provider Physician Assistant | DX: Z13.89 Encounter for screening for other disorder (principal) ==

== ENCOUNTER 2023-02-06 15:12 | Outpatient (REF) | payer OTHER, SELFPAY ==
--- NOTE | ~2023-02-06 | MM_ITS ---
EXAMINATION: MM SCREENING DIGITAL BREAST TOMOSYNTHESIS, BILATERAL CLINICAL INFORMATION: Screening. Asymptomatic. The patient is status post bilateral mastopexy. COMPARISON: Mammography: This study is compared with prior exams dating back to 2018. TECHNIQUE: Digital breast tomosynthesis is performed in both the craniocaudal and mediolateral oblique views along with computer-aided detection (CAD). Synthesized 2D images are generated from the tomosynthesis. FINDINGS: There are scattered areas of fibroglandular density (ACR BI-RADS breast composition Category b). There are no significant masses, abnormal calcifications, or other abnormalities. Postsurgical changes are present in each breast. MM/MM tomosynthesis screening BI IMPRESSION: No mammographic evidence of malignancy. ASSESSMENT: BI-RADS BI-RADS 2 - Benign Findings RECOMMENDATION: Routine annual mammography screening. 1 year F/U This examination should not preclude the clinical evaluation of a suspicious palpable abnormality. This patient's information was entered into a reminder system with a target due date for their next mammogram.
== END 2023-02-06 15:13 | disposition home or self-care (01) ==
LOC: HO.MAMMO 15:12
PROVIDERS: PCP Internal Medicine; Referring Provider Obstetrics & Gynecology; Visit Provider Internal Medicine
DX: Z12.31 Encounter for screening mammogram for malignant neoplasm of breast (principal)
CPT/HCPCS: 77063; 77067

== ENCOUNTER → 2023-02-06 15:45 | Outpatient (BNV) | payer OTHER, SELFPAY | PROVIDERS: PCP Internal Medicine; Referring Provider Obstetrics & Gynecology; Visit Provider Radiology Diagnostic Radiology | DX: Z12.31 Encounter for screening mammogram for malignant neoplasm of breast (principal) | CPT/HCPCS: 77063; 77067 ==

== ENCOUNTER 2023-02-07 09:09 | Outpatient (REF) | payer OTHER, SELFPAY | END 2023-02-07 09:10 | disposition home or self-care (01) | LOC: HO.LNP 09:09 | PROVIDERS: Visit Provider Physician Assistant | DX: A04.8 Other specified bacterial intestinal infections (principal) | CPT/HCPCS: 87338 ==

== ENCOUNTER 2023-02-10 09:31 | Outpatient (AMB) | payer OTHER, SELFPAY ==
[2023-02-10 09:32] VITALS: BMI 26.3
--- NOTE | 2023-02-10 09:32 | A.OFFVIS_ITS ---
Intake Vital Signs 02/10/23 09:32 Height 5 ft 4 in Weight 153 lb BMI 26.3 Intake Visit Reasons: Ov- Right Shoulder injection-Last inj. 08/04/22 Intake Note: Sherly is a 47 year old right hand dominant female who presents today for a right shoulder injection, last injection 08/04/22. Patient reports her last injection gave her a couple months of relief. Allergies Latex Allergy (Mild, Uncoded 11/27/22 08:58) Rash HPI Ov- Right Shoulder injection-Last inj. 08/04/22 HPI Details 47-year-old right hand dominant female tonya nelson presents in the office today for a follow up of right shoulder pain. The patient has her last cortisone injection on 08/04/2022. The patient reports the last injection gave her a few months of relief. 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 No ecchymosis, erythema, or edema. Forward flexion lacking 30 degrees. Abduction lacking 40 degrees. External rotation to end range. Able to reach back pocket. Negative cross-body reach. Negative drop arm. Negative empty can. NVI. Office Procedures Joint Injection/Drain Joint Injection/Drain Primary Site: right shoulder Prep: site was prepped using aseptic technique, ethochloride spray was applied and injection warnings given Injected: 80 mg of, DepoMedrol, with 8 mL of (2% plain lido) and in the subcromial space Approach Used: posterolateral Procedure: The patient tolerated the procedure well, but had some pain with the injection and there was some relief with the local anesthesia Coding 11908 - Large joint Procedure code (CPT) selection complete Assessment & Plan Assessment & Plan (1) Painful arc syndrome of right shoulder: Code(s): M75.101 - Unspecified rotator cuff tear or rupture of right shoulder, not specified as traumatic Plan Ms. Rae is a 47-year-old right hand dominant female who presents in the office today for a follow up of right shoulder pain. The patient has her last cortisone injection on 08/04/2022. The patient reports the last injection gave her a few months of relief. The patient was offered a cortisone injection in the right shoulder with 80 mg of DepoMedrol. The patient was explained the risk, benefits, and alternatives to receiving this injection. After receiving consent for the injection, the patient had the procedure done while in office today. The patient tolerated the procedure well with no complications. Follow up will be PRN, or sooner if needed. Patient Instructions: Scribed for Penny Mojica PA-C by Nettie Alvarado medical records auditor, on 02/10/2023 at 9:32 am, EST. Coding Level of Care Code Est Pt Level 3 (53867) Diagnoses Painful arc syndrome of right shoulder M75.101 CPT Codes Coding - 54750 Large joint: 92958 - Large joint ([id number])
== END 2023-02-10 09:42 | disposition home or self-care (01) ==
PROVIDERS: PCP Internal Medicine; Visit Provider Physician Assistant
DX: M75.101 Unspecified rotator cuff tear or rupture of right shoulder, not specified as traumatic (principal)
CPT/HCPCS: 20610; 99213

== ENCOUNTER → 2023-02-10 09:31 | Outpatient (BNVA) | payer OTHER, SELFPAY | PROVIDERS: PCP Internal Medicine; Visit Provider Physician Assistant | DX: M75.101 Unspecified rotator cuff tear or rupture of right shoulder, not specified as traumatic (principal) | CPT/HCPCS: 20610; 99212; J1040 ==

== ENCOUNTER 2023-03-11 08:01 | Outpatient (AMB) | payer OTHER, SELFPAY ==
--- NOTE | 2023-03-11 08:10 | A.OFFVIS_ITS ---
Intake Vital Signs 03/11/23 08:11 Height 5 ft 4 in Weight 149 lb 14.629 oz BMI 25.7 BP 109/67 Blood Pressure Location Lt brachial Position Sitting Pulse 69 Intake Visit Reasons: 6 week follow up Intake Note: Sherly presents in the office as a 6 week follow up. CC: She states that she is not having any concerns today Allergies Latex Allergy (Mild, Uncoded 03/11/23 08:12) Rash Medication List - Last Reconciled 03/11/23 by Lelo Aguilar PA-C calcium polycarbophil (Fiber Laxative (calcium polycarbophil)) 1,250 mg (2 x 625 mg) PO DAILY 30 days dextroamphetamine-amphetamine 20 mg (Adderall) 20 mg PO DAILY ferrous sulfate 325 mg PO DAILY 8 weeks pantoprazole 20 mg PO QAM PRN 30 days sucralfate 1 g PO BID HPI HPI Comments History of Present Illness Details A 47 y/o female with chronic constipation- bowel regimen- she takes dulcolax on the w/e with good response-she has try to fiber however she does skip meals pretty regularly due to her is working home schedule Reflux- well controlled - dietary modifications Hp negative- No nausea, vomiting, abdominal pain, hematemesis, hematochezia fever chills Overall is feeling quite well however she expresses increased anxiety-she is feeling very troubled anxiety- 13 y/o with GI issues- no findings-she has had several opinions , Lidia benoit-anxiety- PFSH Surgical History Hx of colonoscopy History of esophagogastroduodenoscopy (EGD) History of cholecystectomy History of breast lift Hx of abdominoplasty Social History Patient Tobacco Use Status: Never used Tobacco Current occupational status: employed 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 Female Reproductive History Menstrual Age of Menarche: 16 Review of Systems Const All systems reviewed & are unremarkable except as noted in HPI and below Card Denies chest pain and Denies dyspnea Resp Denies dyspnea GI Denies abdominal pain, Denies hematochezia, Reports constipation, Denies nausea and Denies vomiting Psych Reports anxiety Physical Exam Vital Signs: Last Vital Signs Pulse 69 12/20/23 08:11 BP 109/67 03/11/23 08:11 BMI result Body Mass Index 25.7 Const General: cooperative, healthy appearing, comfortable and no acute distress Orientation/consciousness: patient oriented x3 Limitations: no limitations Eyes Sclerae: sclerae normal Resp Effort & Inspection: normal respiratory effort and able to speak in complete sentences Skin General skin exam: no rashes or lesions noted Neuro General: patient oriented x3 Extrem General: Yes full ROM Psych Appearance: grossly normal and well kempt Mental Status: mental status grossly normal Speech and movement: Normal speech and movement present Affect: normal affect and Anxious affect present Attitude: cooperative Thought process: Normal thought process present Thought content: Normal thought content present Assessment & Plan Assessment & Plan (1) Chronic constipation: Comment: consistent bowel regimen, continue fiber supplements she is unable to get enough fiber in her diet EGD colonoscopy 2019 Dr. Epps Code(s): K59.09 - Other constipation (2) Acid reflux: Comment: H pylori neg Code(s): K21.9 - Gastro-esophageal reflux disease without esophagitis Plan: continue ppi, dietary modifications (3) Anxiety: Comment: Very pleasant somewhat anxious 47-year-old female Discussed at length 30 minute Code(s): F41.9 - Anxiety disorder, unspecified Plan: Consider psychotherapy Plan continue ppi, dietary modifications consistent bowel regimen, Patient Instructions: consistent bowel regimen, continue ppi, dietary modifications Consider psychotherapy Encouraged to call questions or concerns Coding Level of Care Code Est Pt Level 4 (17130) Diagnoses Chronic constipation K59.09 Acid reflux K21.9 Anxiety F41.9 Time Spent (min) 40 Comment 30 minutes counseling/anxiety, daughter GI
[2023-03-11 08:11] VITALS: BP 109/67; PULSE 69; BMI 25.7
== END 2023-03-11 09:13 | disposition home or self-care (01) ==
PROVIDERS: PCP Internal Medicine; Visit Provider Physician Assistant
DX: K59.09 Other constipation (principal); K21.9 Gastro-esophageal reflux disease without esophagitis; F41.9 Anxiety disorder, unspecified
CPT/HCPCS: 99214

== ENCOUNTER → 2023-03-11 08:01 | Outpatient (BNVA) | payer OTHER, SELFPAY | PROVIDERS: PCP Internal Medicine; Visit Provider Physician Assistant | DX: K59.09 Other constipation (principal); K21.9 Gastro-esophageal reflux disease without esophagitis; F41.9 Anxiety disorder, unspecified | CPT/HCPCS: 99212 ==

== ENCOUNTER 2023-05-22 16:37 | Outpatient (REF) | payer OTHER, SELFPAY ==
[2023-05-22 16:47] LABS: MANUAL DIFF FLAG NO
[2023-05-22 17:39] LABS: Basophils Absolute Auto 0.1 X10*3/uL (0.0-0.2); Basophils Percent Auto 0.9 % (0-2); Eosinophils Absolute Auto 0.1 X10*3/uL (0.0-0.4); Eosinophils Percent Auto 1.4 % (0-4); Hematocrit 35.5 % (37.0-47.0); Hemoglobin 10.9 g/dl (12.0-16.0); Imm Gran Abs Auto 0.01 X10*3/uL (0.00-0.03); Imm Gran Pct Auto 0.2 % (0.0-0.4); Lymphocytes Absolute Auto 2.1 X10*3/uL (1.2-4.9); Lymphocytes Percent Auto 36.1 % (20-40); Mean Corpuscular HGB Conc 30.7 g/dl (31.0-35.0); Mean Corpuscular Hemoglobin 24.9 pg (27.0-33.0); Mean Corpuscular Volume 81.2 fL (80.0-98.0); Mean Platelet Volume 11.4 fL (9.4-12.3); Monocytes Absolute Auto 0.4 X10*3/uL (0.1-1.2); Monocytes Percent Auto 7.3 % (2-11); Neutrophils Absolute Auto 3.1 x10*3/uL (2.0-8.3); Neutrophils Percent Auto 54.1 % (45-73); Platelet Count 243 X10*3/uL (160-400); Red Blood Count 4.37 X10*6/uL (4.20-5.50); Red Cell Distribution Width 14.6 % (11.0-16.0); White Blood Count 5.8 X10*3/uL (4.8-10.8)
[2023-05-22 17:57] LABS: Appearance Urine Cloudy; Color Urine Dark Yellow; Glucose Urine UA Negative (Negative); Leukocyte Esterase Urine Trace (Negative); Nitrite Urine Negative (Negative); PH 5.5 (5.0-9.0); Specific Gravity - Urine >= 1.030 (1.005-1.025); UMIC TRIGGER UA YES; Urine Blood Large (3+) (Negative); Urine Ketones Trace mg/dL (Negative); Urine Protein 30 (1+) mg/dL (Neg-Trace)
[2023-05-22 18:02] LABS: Bacteria Urine None Seen (None Seen); Hyaline Casts Urine 0-2 /LPF (0-2); RBC Urine >20 /HPF (0-2); WBC Urine 21-50 /HPF (0-5)
[2023-05-22 18:12] LABS: Alanine Aminotransferase 5 U/L (0-31); Albumin Level 4.1 g/dL (3.5-5.0); Alkaline Phosphatase 62 U/L (39-117); Anion Gap 11 (12-20); Aspartate Amino Transferase 14 U/L (5-31); Bilirubin Total 0.6 mg/dL (0.0-1.0); Blood Urea Nitrogen 14 mg/dL (9-16); Calcium 9.5 mg/dL (8.4-10.2); Carbon Dioxide 28 mmol/L (22-29); Chloride 108 mmol/L (96-108); Estimated Glomerular Filt Rate > 60; Glucose Random 77 mg/dL (60-115); Potassium 3.7 mmol/L (3.3-5.1); Sodium 143 mmol/L (135-145); Total Protein 7.3 g/dL (6.5-8.0)
[2023-05-22 18:27] LABS: Thyroid Stimulating Hormone 0.84 uIU/mL (0.32-4.0)
[2023-05-22 18:36] LABS: Folate 6.4 ng/mL (> or = 4.0); Vitamin B12 709 pg/mL (200-900)
== END 2023-05-22 16:38 | disposition home or self-care (01) ==
LOC: HO.LAB 16:37
PROVIDERS: PCP Internal Medicine; Visit Provider Internal Medicine
DX: R63.4 Abnormal weight loss (principal); R19.7 Diarrhea, unspecified; R55 Syncope and collapse; R11.0 Nausea
CPT/HCPCS: 36415; 80053; 81001; 82607; 82746; 84443; 85025; 87086

== ENCOUNTER 2023-05-29 10:50 | Outpatient (REF) | payer OTHER, SELFPAY ==
--- NOTE | ~2023-05-29 | US_ITS ---
EXAMINATION: US RETROPERITONEAL COMPLETE (RENAL) CLINICAL INFORMATION: Hematuria. COMPARISON: None available. TECHNIQUE: Real-time imaging of the kidneys and bladder. FINDINGS: RIGHT KIDNEY: 12.3 x 4.7 x 5.4 cm (SAG x AP x TRV). The kidney is normal in size, contour, and echogenicity. Renal cortical thickness is normal. No calculi or focal parenchymal lesions. No hydronephrosis. LEFT KIDNEY: 12.8 x 4.1 x 4.7 cm (SAG x AP x TRV). The kidney is normal in size, contour, and echogenicity. Renal cortical thickness is normal. No calculi or focal parenchymal lesions. No hydronephrosis. BLADDER: Well distended and normal. Bilateral ureteral jets are demonstrated. Prevoid bladder volume is 333 mL. Postvoid bladder volume is 49.4 mL. On post void images, inferior bladder wall thickening identified. US/US retroperitoneal comp IMPRESSION: Unremarkable kidneys. 49.4 mL post void residual with mild urinary bladder posterior wall thickening on post void images.
== END 2023-05-29 10:51 | disposition home or self-care (01) ==
LOC: HO.US 10:50
PROVIDERS: PCP Internal Medicine; Visit Provider Internal Medicine
DX: R31.9 Hematuria, unspecified (principal)
CPT/HCPCS: 76770

== ENCOUNTER 2023-08-24 09:24 | Outpatient (AMB) | payer OTHER, SELFPAY ==
--- NOTE | 2023-08-24 09:25 | A.OFFVIS_ITS ---
Vital Signs 08/24/23 09:32 Height 5 ft 4 in Weight 149 lb BMI 25.6 Intake Visit Reasons: shoulder pain /Hip pain Right side Intake Note: Sherly is a 48 year old right hand dominant female who presents today for a right shoulder injection, last injection 02/10/23. She expresses that her right hip is hurting more than her shoulder. Patient reports her last injection gave her about 4 - 6 months of relief. Patient is having concerns of her right hip pain that started a couple months ago. Pain is focused on the lateral aspect of the hip but is moves to her glutes and groin area. She states that her pain sometimes radiates to her lower back as well. Patient is wondering if she could have an x ray of her hip. Allergies Latex Allergy (Mild, Uncoded 03/11/23 08:12) Rash HPI HPI shoulder pain /Hip pain Right side: Details: 48-year-old right hand dominant female who presents in the office today for a follow up of right shoulder pain. I last saw the patient in the office on 02/10/2023 when she received a cortisone injection in the right shoulder. While in the office today the patient reports her last cortisone injection gave her about 4-6 months of relief. 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 No ecchymosis, erythema, or edema. Forward flexion lacking 30 degrees. Abduction lacking 40 degrees. External rotation to end range. Able to reach back pocket. Negative cross-body reach. Negative drop arm. Negative empty can. NVI. Office Procedures Joint Injection/Drain Joint Injection/Drain Primary Site: right shoulder Prep: site was prepped using aseptic technique, ethochloride spray was applied and injection warnings given Injected: 80 mg of, DepoMedrol, with 8 mL of (2% plain lido ) and in the subcromial space Approach Used: posterolateral Procedure: The patient tolerated the procedure well, but had some pain with the injection and there was some relief with the local anesthesia Coding - Large joint Procedure code (CPT) selection complete Assessment & Plan Assessment & Plan (1) Painful arc syndrome of right shoulder: Code(s): M75.101 - Unspecified rotator cuff tear or rupture of right shoulder, not specified as traumatic Category: Medical Plan Ms. Cohen is a 48-year-old right hand dominant female who presents in the office today for a follow up of right shoulder pain. I last saw the patient in the office on 02/10/2023 when she received a cortisone injection in the right shoulder. While in the office today the patient reports her last cortisone injection gave her about 4-6 months of relief. The patient was offered a cortisone injection in the right shoulder with 80 mg of DepoMedrol. The patient was explained the risk, benefits, and alternatives to receiving this injection. After receiving consent for the injection, the patient had the procedure done while in the office today. The patient tolerated the procedure well with no complications. Follow-up will be PRN, or sooner if needed. Patient Instructions: Scribed by Nettie Alvarado medical collections specialist, for Penny Mojica PA-C on 08/24/2023 at 9:38 am, EST. Coding Level of Care Code Est Pt Level 3 (15715) Diagnoses Painful arc syndrome of right shoulder M75.101 CPT Codes Coding - Large joint: 36506 - Large joint ([id number])
[2023-08-24 09:32] VITALS: BMI 25.6
== END 2023-08-24 10:00 | disposition home or self-care (01) ==
PROVIDERS: PCP Internal Medicine; Visit Provider Physician Assistant
DX: M75.101 Unspecified rotator cuff tear or rupture of right shoulder, not specified as traumatic (principal)
CPT/HCPCS: 20610; 99213

== ENCOUNTER → 2023-08-24 09:24 | Outpatient (BNVA) | payer OTHER, SELFPAY | PROVIDERS: PCP Internal Medicine; Visit Provider Physician Assistant | DX: M75.101 Unspecified rotator cuff tear or rupture of right shoulder, not specified as traumatic (principal) | CPT/HCPCS: 20610; 99212; J1010 ==

== ENCOUNTER 2023-09-04 08:39 | Outpatient (AMB) | payer OTHER, SELFPAY ==
--- NOTE | 2023-09-04 08:45 | A.OFFVIS_ITS ---
Intake Visit Reasons: New Prob - right hip pain Intake Note: Sherly is a 48 year old right hand dominant female who presents today for a evaluation of her right hip pain. Patient reports ongoing pain for about 2 years but has gotten worse in the past 6 months with no known injury.She states it radiates up to her lower back/goes down to her right leg and groin area.She states she has tried tylenol and ibuprofen for the pain with no relief. She has also tried heat and ice with some relief. Allergies Latex Allergy (Mild, Uncoded 09/04/23 08:56) Rash HPI HPI New Prob - right hip pain: Details: 48-year-old right hand dominant female who presents in the office today for an evaluation of right hip pain. I last saw the patient in the office on 08/24/2023 for her right shoulder, but during the encounter the patient reported right hip pain on the lateral aspect radiating to her glutes and groin areas. She also stated that her pain occasionally radiates to her lower back. While in the office today the patient reports having pain has been present for two years, since 2021. She reports an increase in pain in the past 6 months, beginning in 02/2023, with no known injury. She claims her pain radiates up to her lower back and down her right lower extremity, as well as to the groin area. She reports the use of Tylenol and ibuprofen with no relief. She has also tired heat and ice with mild relief. 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 No ecchymosis, erythema, or edema. Pain in the groin with internal and external rotation. Full hip ROM in all planes. No tenderness to palpation over the greater trochanteric bursa. 5/5 strength with resisted hip flexion, knee extension, abduction, and abduction. Able to perform straight leg raise. NVI. Right shoulder: Normal to inspection. No ecchymosis, erythema, or edema. Forward flexion lacking 30 degrees. Abduction lacking 40 degrees. External rotation to end range. Able to reach back pocket. Negative cross-body reach. Negative drop arm. Negative empty can. NVI. Assessment & Plan Assessment & Plan (1) Osteoarthritis of right hip: Code(s): M16.11 - Unilateral primary osteoarthritis, right hip (2) Painful arc syndrome of right shoulder: Code(s): M75.101 - Unspecified rotator cuff tear or rupture of right shoulder, not specified as traumatic Category: Medical Plan Ms. Cohen is a 48-year-old right hand dominant female who presents in the office today for an evaluation of right hip pain. I last saw the patient in the office on 08/24/2023 for her right shoulder, but during the encounter the patient reported right hip pain on the lateral aspect radiating to her glutes and groin areas. She also stated that her pain occasionally radiates to her lower back. While in the office today the patient reports having pain has been present for two years, since 2021. She reports an increase in pain in the past 6 months, beginning in 02/2023, with no known injury. She claims her pain radiates up to her lower back and down her right lower extremity, as well as to the groin area. She reports the use of Tylenol and ibuprofen with no relief. She has also tired heat and ice with mild relief. The patient will be referred for an intra-articular hip injection to be done at the hospital. Follow-up will be PRN, or sooner if needed. Of note: The patient was seen by me on 08/24/2023 when we did a cortisone injection in the right shoulder. She reports no relief but does have a slight increase in pain. She has a history of multiple cortisone injections and physical therapy which have helped some but the pain has returned. We are going to proceed with an MRI of the right shoulder at this time. An order was placed in the office today. Follow-up for the right shoulder will be after the MRI is obtained, or sooner if needed. X-rays of the right hip which were obtained while in the office today and were reviewed by me, Penny Mojica PA-C, revealed no acute fracture or dislocation. Osteoartritis noted. Orders: Orders MR shoulder RT wo con Today M75.101 - Unspecified rotator cuff tear or rupture of right shoulder, not specified as traumatic [place] arthrogram hip RT Today M16.11 - Unilateral primary osteoarthritis, right hip Patient Instructions: Scribed by Nettie Alvarado claim review medical director, for Penny Mojica PA-C on 09/04/2023 at 8:57 am, EST. Coding Level of Care Code Est Pt Level 4 (99364) Diagnoses Osteoarthritis of right hip M16.11 Painful arc syndrome of right shoulder M75.101
== END 2023-09-04 09:24 | disposition home or self-care (01) ==
PROVIDERS: PCP Internal Medicine; Visit Provider Physician Assistant
DX: M16.11 Unilateral primary osteoarthritis, right hip (principal); M75.101 Unspecified rotator cuff tear or rupture of right shoulder, not specified as traumatic
CPT/HCPCS: 99214

== ENCOUNTER 2023-09-04 09:04 | Outpatient (REF) | payer OTHER, SELFPAY ==
--- NOTE | ~2023-09-04 | XR_ITS ---
EXAMINATION: XR HIP, RIGHT Pelvis: CLINICAL INFORMATION: Pain in the hip COMPARISON: Pelvic x-ray May 2015 TECHNIQUE: AP view of the pelvis and AP and lateral views of the right hip FINDINGS: Right hip: Small marginal osteophytes at the femoral head neck junction. Joint space normal. Surrounding bone and soft tissues unremarkable. XR/XR hip RT min 2V IMPRESSION: Mild osteoarthritis unchanged.
== END 2023-09-04 09:05 | disposition home or self-care (01) ==
LOC: HO.HOSX 09:04
PROVIDERS: Visit Provider Physician Assistant
DX: M16.11 Unilateral primary osteoarthritis, right hip (principal); M75.101 Unspecified rotator cuff tear or rupture of right shoulder, not specified as traumatic
CPT/HCPCS: 73502; 99212

== ENCOUNTER 2023-10-13 12:42 | Outpatient (REF) | payer OTHER, SELFPAY ==
--- NOTE | ~2023-10-13 | FL_ITS ---
FLUOROSCOPIC RIGHT HIP INTRA-ARTICULAR STEROID INJECTION INDICATIONS: Right hip pain. Intra-articular gadolinium injection is needed prior to MRI. PROCEDURE: Risks and benefits and possible complications were discussed with the patient and the consent form was signed. The patient was placed hip on the fluoroscopy table. The right hip was prepped and draped in normal sterile fashion. 1% buffered lidocaine was used for anesthesia. A 22-gauge spinal needle was used to access the hip joint. Intra-articular position of the needle within the hip joint was verified using 3 cc of Omnipaque 300. A total of 5 mL 1% lidocaine, and 80 mg Depo-Medrol was then injected into the hip joint. The needle was then removed and a Band-Aid was applied to the injection site. The patient tolerated the procedure well. There were no immediate complications. FL/FL arthrogram hip RT IMPRESSION: Successful fluoroscopic right hip intra-articular steroid injection The procedure was performed by Jon Barlow PA-C, and directly supervised by Dr. Ontiveros.
== END 2023-10-13 12:43 | disposition home or self-care (01) ==
LOC: HO.XRAY 12:42
PROVIDERS: PCP Internal Medicine; Visit Provider Physician Assistant
DX: M16.11 Unilateral primary osteoarthritis, right hip (principal)
CPT/HCPCS: 27093; 73525

== ENCOUNTER → 2023-10-13 12:46 | Outpatient (BNV) | payer OTHER, SELFPAY | PROVIDERS: PCP Internal Medicine; Visit Provider Physician Assistant Surgical | DX: M16.11 Unilateral primary osteoarthritis, right hip (principal) | CPT/HCPCS: 27093; 73525 ==

== ENCOUNTER 2023-11-03 11:10 | Outpatient (AMB) | payer OTHER, SELFPAY ==
--- NOTE | 2023-11-03 11:19 | A.OFFVIS_ITS ---
Intake Visit Reasons: OV - right hip OA, last arthrogram 10/13/23 Intake Note: Sherly is a 48 year old female who presents today for a follow up of her right hip OA, last arthrogram was done on 10/13/23. Patient reports she is doing well. She states that her PT is providing her with relief and also the injection is still providing her with relief. Allergies Latex Allergy (Mild, Uncoded 09/04/23 08:56) Rash HPI HPI OV - right hip OA, last arthrogram 10/13/23: Details: 48-year-old right hand dominant female who presents in the office today for a follow-up of right hip osteoarthritis. I last saw the patient in the office on 09/04/23 when she was referred for a right hip intra-articular injection. The patient underwent the right hip arthrogram on 10/13/23.? ? While in the office today, the patient reports she has been doing well. She states physical therapy and the injection have been providing her with relief. ? 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 No ecchymosis, erythema, or edema. Full hip ROM in all planes. No tenderness to palpation over the greater trochanteric bursa. 5/5 strength with resisted hip flexion, knee extension, abduction, and abduction. Able to perform straight leg raise. NVI. ? Assessment & Plan Assessment & Plan (1) Osteoarthritis of right hip: Code(s): M16.11 - Unilateral primary osteoarthritis, right hip Plan Ms. Sánchez is a 48-year-old right hand dominant female who presents in the office today for a follow-up of right hip osteoarthritis. I last saw the patient in the office on 09/04/23 when she was referred for a right hip intra-articular injection. The patient underwent the right hip arthrogram on 10/13/23.? ? While in the office today, the patient reports she has been doing well. She states physical therapy, and the injection have been providing her with relief.? ? The patient will continue to work with physical therapy until all sessions are complete. Follow-up will be PRN, or sooner if needed. ? Orders: Orders MR shoulder RT wo con Today M75.101 - Unspecified rotator cuff tear or rupture of right shoulder, not specified as traumatic Patient Instructions: Scribed by Nettie Alvarado medical affairs manager, for Penny Mojica PA-C on 11/03/2023 at 11:21 am, EST.? Coding Level of Care Code Est Pt Level 3 (75043) Diagnoses Osteoarthritis of right hip M16.11
== END 2023-11-03 12:14 | disposition home or self-care (01) ==
PROVIDERS: PCP Internal Medicine; Visit Provider Physician Assistant
DX: M16.11 Unilateral primary osteoarthritis, right hip (principal)
CPT/HCPCS: 99213

== ENCOUNTER → 2023-11-03 11:10 | Outpatient (BNVA) | payer OTHER, SELFPAY | PROVIDERS: PCP Internal Medicine; Visit Provider Physician Assistant | DX: M16.11 Unilateral primary osteoarthritis, right hip (principal) | CPT/HCPCS: 99212 ==

== ENCOUNTER 2023-11-05 08:00 | Outpatient (RCR) | payer OTHER, SELFPAY ==
--- NOTE | 2023-10-09 09:55 | MHC.PT.EP ---
[facility] [place] Office [place] Office [place] Office [address] [phone] F: [phone] F: [phone] F: [phone] F: [phone] Physical Therapy Plan of Care Date of Evaluation: 10/09/23 Date of Surgery: N/A Diagnosis: osteoarthritis of R hip (RL) Assessment: pt is a 48 y/o female presenting to physical therapy w/ referring diagnosis of osteoarthritis of right hip. Her SI joint testing was negative. She does have some nerve symptoms including intermittent numbness/tingling as well as some weakness to the L3-L4 myotome. ? lumbar nerve involvement. She does have symptoms of true hip OA as well. Will continue to monitor and treat or refer as appropriate. Impairments include pain, decreased range of motion, decreased strength, impaired functional mobility, impaired postural awareness, and altered ambulation mechanics. pt is a good candidate for skilled PT due to age, potential remediation of impairments, typical disease/condition progression and prognosis, comorbidities, and motivation. pt would benefit from skilled PT intervention to provide a tailored strengthening and stretching exercise program, functional training, gait training, postural re-training, neuromuscular re-education, modalities as needed for pain, equipment safety demonstration. Frequency and Duration: The patient will be seen 2x/wk for 4 wks Short Term Goals: pt will be I w/ HEP to promote self-management of condition. pt will improve R hip flexor and quad strength by 1 MMT grade to promote ease in transfers. Roof Truss Builder Goals: pt will report a statistically significant improvement in self-reported outcome measure, LEFI, to promote return to PLOF. pt will demo proper lifting mechanics for 25# object x5 reps w/o verbal cueing to promote neutral spine w/ household activities. Treatment Plan: Modalities to reduce pain, spasms and effusion. Manual therapy to restore motion and function. Therapeutic exercise to improve strength and flexibility. Neuromuscular re-education for posture and balance. Therapeutic activities to return to functional activities of daily living. Electronically signed by: Rani Driver PT, DPT Please sign and return to therapist. Thank you for your referral.
--- NOTE | 2023-11-17 14:38 | MHC.PT.DC ---
[facility] [place] Office [place] Office [place] Office [address] 140 [facility] [phone] F: [phone] F: [phone] F: [phone] F: [phone] Physical Therapy Discharge Report Diagnosis: osteoarthritis of R hip (RL) Date of Surgery: N/A Date of Evaluation: 10/09/23 Date of Discharge: 11/17/23 Treatments to Date: 6 Cancellations to Date: 5 No Shows to Date: 1 Discharge Status: Visit Non-compliance Discharge Summary: The patient no showed her last scheduled appointment and has not reached out to schedule any additional appointments. She was showing some improvement in her back pain but still some persistent symptoms. Overall, she is very weak and had fair postural awareness. She benefitted from some strengthening and posture education. She is discharged from this plan of care due to attendance. Electronically signed by: Rani Driver PT, DPT Please sign and return to therapist. Thank you for your referral.
== END 2023-11-17 14:38 | disposition home or self-care (01) ==
LOC: HO.PT 08:00
PROVIDERS: PCP Internal Medicine; Visit Provider Physician Assistant
DX: M16.11 Unilateral primary osteoarthritis, right hip (principal)
CPT/HCPCS: 97110; 97112; 97140; 97162; 97535

== ENCOUNTER 2023-11-24 16:43 | Outpatient (REF) | payer OTHER, SELFPAY ==
--- NOTE | ~2023-11-24 | MR_ITS ---
EXAMINATION: MR SHOULDER WITHOUT CONTRAST, RIGHT CLINICAL INFORMATION: Rotator cuff tear . Patient reports pain 2 years. COMPARISON: X-ray 04/17/2022 TECHNIQUE: MRI of the shoulder without contrast was performed on a high-field scanner. FINDINGS: ROTATOR CUFF: Moderate supraspinatus and infraspinatus tendinosis. Teres minor is intact. Intact subscapularis tendon. No muscle atrophy or fatty infiltration. BICEPS: Intact CORACOACROMIAL ARCH: The undersurface of the acromion is curved with no subacromial spur. Mild acromioclavicular arthritis. LABRUM/CAPSULE: No definite labral tear is seen. GLENOHUMERAL JOINT/MARROW: No fracture. No aggressive marrow replacing lesion. No significant effusion. MR/MR shoulder RT wo con IMPRESSION: 1. Moderate supraspinatus and infraspinatus tendinosis. No rotator cuff tear is seen. 2. Mild acromioclavicular arthritis. Electronically signed by: Sánchez Davis MD 11/30/2023 09:24 AM EDT
== END 2023-11-24 16:44 | disposition home or self-care (01) ==
LOC: HO.MRI 16:43
PROVIDERS: PCP Internal Medicine; Visit Provider Physician Assistant
DX: M75.101 Unspecified rotator cuff tear or rupture of right shoulder, not specified as traumatic (principal)
CPT/HCPCS: 73221

== ENCOUNTER 2023-12-01 14:44 | Outpatient (REF) | payer OTHER, SELFPAY ==
[2023-12-01 17:33] LABS: Appearance Urine Cloudy; Color Urine Dark Yellow; Glucose Urine UA Negative (Negative); Leukocyte Esterase Urine Moderate (2+) (Negative); Nitrite Urine Positive (Negative); PH 5.5 (5.0-9.0); Specific Gravity - Urine >= 1.030 (1.005-1.025); UMIC TRIGGER UACC YES; Urine Blood Trace (Negative); Urine Ketones Trace mg/dL (Negative); Urine Protein Trace mg/dL (Neg-Trace)
[2023-12-01 17:38] LABS: Bacteria Urine 4+ (None Seen); UACC Culture Trigger YES; WBC Urine >50 /HPF (0-5)
== END 2023-12-01 14:45 | disposition home or self-care (01) ==
LOC: HO.LAB 14:44
PROVIDERS: PCP Internal Medicine; Visit Provider Internal Medicine
DX: R30.0 Dysuria (principal); R82.79 Other abnormal findings on microbiological examination of urine
CPT/HCPCS: 81001; 87086; 87088; 87186

== ENCOUNTER 2023-12-15 14:43 | Outpatient (REF) | payer OTHER, SELFPAY ==
[2023-12-15 16:13] LABS: Appearance Urine Cloudy; Color Urine Yellow; Glucose Urine UA Negative (Negative); Leukocyte Esterase Urine Moderate (2+) (Negative); Nitrite Urine Positive (Negative); PH 5.5 (5.0-9.0); UMIC TRIGGER UA YES; Urine Blood Moderate (2+) (Negative); Urine Ketones Trace mg/dL (Negative); Urine Protein Negative (Neg-Trace)
[2023-12-15 16:16] LABS: Bacteria Urine 4+ (None Seen); Hyaline Casts Urine 0-2 /LPF (0-2); Squamous Epithelial Cell Urine 0-2 /HPF (0-2); WBC Urine >50 /HPF (0-5)
== END 2023-12-15 14:44 | disposition home or self-care (01) ==
LOC: HO.LAB 14:43
PROVIDERS: PCP Internal Medicine; Visit Provider Internal Medicine
DX: R30.0 Dysuria (principal)
CPT/HCPCS: 81001; 81003; 87086; 87088; 87186

== ENCOUNTER 2023-12-25 15:44 | Outpatient (REF) | payer OTHER, SELFPAY ==
[2023-12-25 17:23] LABS: Appearance Urine Clear; Color Urine Yellow; Glucose Urine UA Negative (Negative); Leukocyte Esterase Urine Small (1+) (Negative); Nitrite Urine Negative (Negative); PH 6.5 (5.0-9.0); UMIC TRIGGER UACC YES; Urine Blood Negative (Negative); Urine Ketones Negative (Negative); Urine Protein Negative (Neg-Trace)
[2023-12-25 17:41] LABS: Bacteria Urine None Seen (None Seen); Hyaline Casts Urine 0-2 /LPF (0-2); RBC Urine 0-2 /HPF (0-2); UACC Culture Trigger YES; WBC Urine 0-5 /HPF (0-5)
== END 2023-12-25 15:45 | disposition home or self-care (01) ==
LOC: HO.LAB 15:44
PROVIDERS: PCP Internal Medicine; Visit Provider Internal Medicine
DX: R30.0 Dysuria (principal)
CPT/HCPCS: 81001; 87086

== ENCOUNTER 2024-01-18 10:11 | Outpatient (REF) | payer OTHER, SELFPAY | END 2024-01-18 10:12 | disposition home or self-care (01) | LOC: HO.LAB 10:11 | PROVIDERS: PCP Internal Medicine; Visit Provider Obstetrics & Gynecology | DX: Z01.419 Encounter for gynecological examination (general) (routine) without abnormal findings (principal); N93.9 Abnormal uterine and vaginal bleeding, unspecified | CPT/HCPCS: 99396 ==

== ENCOUNTER 2024-01-18 10:11 | Outpatient (AMB) | payer OTHER, SELFPAY ==
--- NOTE | 2024-01-18 10:12 | MHC.OFFVIS ---
Vital Signs 01/18/24 10:14 Height 5 ft 4 in Weight 140 lb BMI 24.0 BP 104/60 Blood Pressure Location Lt brachial Position Sitting Intake Visit Reasons: Annual/DO NOT RS Allergies Latex Allergy (Mild, Uncoded 01/18/24 10:15) Rash Is last menstrual period known: Yes Last menstrual period: 01/06/24 HPI Comments Details: Presenting for annual exam. Complaining of heavy menstrual cycles associated with passage of blood clots and pelvic cramping. 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 Reproductive History Menstrual Age of Menarche: 16 Duration of menses: 3-5 days Date of last menstrual period: 01/06/24 control method: none Total pregnancies: 2 Full term: 2 Number of Living Children: 2 Date of last pap smear: 11/21/21 History of abnormal pap smear: No History of STI: No Date of Mammogram: 02/06/23 Review of Systems Const All systems reviewed & are unremarkable except as noted in HPI and below Card Reports as per HPI Resp Reports as per HPI GI Reports as per HPI and Reports no additional complaints Reports as per HPI Physical Exam Const General: cooperative, healthy appearing and comfortable Chest Chest palpation & inspection: normal inspection of the chest and normal palpation of entire chest wall Breast/axilla inspection: normal inspection of the breasts and normal inspection of the axillae Breast/axilla palpation: normal palpation of the breasts, normal palpation of the axillae and no axillary lymphadenopathy Resp Effort & Inspection: normal respiratory effort Auscultation: clear to auscultation bilaterally Percussion: percussion normal Cardio Palpation: normal PMI Rate: regular rate Rhythm: regular rhythm Heart sounds: no murmurs and no rubs Peripheral pulses: Peripheral pulses 2+ throughout GI Inspection: Yes normal to inspection Palpation (GI): Soft to palpation, nontender, no guarding, not rigid and No hepatosplenomegaly present Percussion: Yes normal to percussion Auscultation: normal bowel sounds Rectal Exam - Female: deferred General: Yes bladder normal to palpation External Female Exam: No lesion Speculum Exam - Vagina: normal appearance of the vagina, normal palpation, normal vaginal discharge and not erythematous Speculum Exam - Cervix: normal appearance of the cervix and normal palpation Bimanual exam- vagina & uterus: normal bimanual exam, normal palpation, uterine size normal, bladder normal to palpation, consistency normal and normal palpation Bimanual Exam- Adnexa, other: normal adnexae, no masses and no tenderness Assessment & Plan Assessment & Plan (1) Well woman exam: Code(s): Z01.419 - Encounter for gynecological examination (general) (routine) without abnormal findings Category: Medical Plan: Co testing not indicated this year Counseled the patient about the recommended dietary allowance of 1200 mg of Calcium & 600 IU of vitamin D. Instructions given the patient is schedule next screening Mammogram, ordered. The patient was referred to GI for screening colonoscopy . The patient was instructed to perform monthly self-breast exams and schedule annual exam in a year. All questions answered and the patient verbalized understanding. (2) Abnormal uterine bleeding (AUB): Code(s): N93.9 - Abnormal uterine and vaginal bleeding, unspecified Category: Medical Plan: GC and chlamydia taken CBC, TSH, prolactin, HCG, and pelvic ultrasound ordered. Discussed with the patient the different causes of abnormal bleeding including thyroid disorders, uterine and ovarian pathology, endometrial hyperplasia, carcinoma and other potential causes. Discussed with the patient the work up including CBC (to r/o anemia), TSH, prolactin, pelvic Ultrasound, endometrial biopsy to r/o endometrial pathology. All questions answered and the patient verbalized understanding. Instructed the patient to schedule an appointment for an endometrial biopsy in 2 weeks. Orders: Orders Prolactin Today N93.9 - Abnormal uterine and vaginal bleeding, unspecified HCG Quantitative Today N93.9 - Abnormal uterine and vaginal bleeding, unspecified Lutenizing Hormone Today N93.9 - Abnormal uterine and vaginal bleeding, unspecified MM screening mammo BI Today Z12.31 - Encounter for screening mammogram for malignant neoplasm of breast MM tomosynthesis screening BI Today Z12.31 - Encounter for screening mammogram for malignant neoplasm of breast Complete Blood Count no Diff Today N93.9 - Abnormal uterine and vaginal bleeding, unspecified TSH reflex Free T4 Today N93.9 - Abnormal uterine and vaginal bleeding, unspecified US pelvic and transvaginal Today N93.9 - Abnormal uterine and vaginal bleeding, unspecified Follicle Stimulating Hormone Today N93.9 - Abnormal uterine and vaginal bleeding, unspecified Referrals Gastroenterology Referral Z12.11 - Encounter for screening for malignant neoplasm of colon Coding Level of Care Code Est Pt Prev Care 40-64y(17145) Diagnoses Well woman exam Z01.419 Abnormal uterine bleeding (AUB) N93.9
[2024-01-18 10:14] VITALS: BP 104/60; BMI 24.0
== END 2024-01-18 10:46 | disposition home or self-care (01) ==
PROVIDERS: PCP Internal Medicine; Visit Provider Obstetrics & Gynecology
DX: Z01.419 Encounter for gynecological examination (general) (routine) without abnormal findings (principal); N93.9 Abnormal uterine and vaginal bleeding, unspecified
CPT/HCPCS: 99396

== ENCOUNTER 2024-01-18 10:33 | Outpatient (REF) | payer OTHER, SELFPAY ==
[2024-01-18 11:45] LABS: Hematocrit 31.2 % (37.0-47.0); Hemoglobin 9.6 g/dl (12.0-16.0); Mean Corpuscular HGB Conc 30.8 g/dl (31.0-35.0); Mean Corpuscular Hemoglobin 25.3 pg (27.0-33.0); Mean Corpuscular Volume 82.1 fL (80.0-98.0); Mean Platelet Volume 10.5 fL (9.4-12.3); Platelet Count 201 X10*3/uL (160-400); Red Cell Distribution Width 13.7 % (11.0-16.0); White Blood Count 5.2 X10*3/uL (4.8-10.8)
[2024-01-18 12:36] LABS: HCG Quantitative < 2 mIU/mL
[2024-01-19 05:09] LABS: CT PCR DETECTED (Not Detect.); NG PCR NOT DETECTED (Not Detect.)
[2024-01-19 12:32] LABS: Follicle Stimulating Hormone 12.1 mIU/mL; Lutenizing Hormone 4.5 mIU/mL; Prolactin 6.7 ng/mL
== END 2024-01-18 10:34 | disposition home or self-care (01) ==
LOC: HO.LNP 10:33
PROVIDERS: Visit Provider Obstetrics & Gynecology
DX: N93.9 Abnormal uterine and vaginal bleeding, unspecified (principal)
CPT/HCPCS: 83001; 83002; 84146; 84443; 84702; 85027; 87491; 87591

== ENCOUNTER 2024-01-20 13:33 | Outpatient (REF) | payer OTHER, SELFPAY ==
[2024-01-21 08:30] LABS: HBsAGNum1 0.28 S/CO (0.00-0.99); HIV AB/AG Nonreactive (Nonreactive); HIV Num 1 0.07 S/CO (0.00-0.99); Hepatitis B Surface Antigen Negative (Negative); ~HepC Num1 5.69 S/CO (0.00-0.79); ~Hepatitis C Antibody Reactive (Nonreactive)
[2024-01-21 08:43] LABS: Syphilis Screen Nonreactive (Nonreactive)
== END 2024-01-20 13:34 | disposition home or self-care (01) ==
LOC: HO.LAB 13:33
PROVIDERS: PCP Internal Medicine; Visit Provider Obstetrics & Gynecology
DX: Z11.3 Encounter for screening for infections with a predominantly sexual mode of transmission (principal)
CPT/HCPCS: 36415; 86780; 86803; 87340; 87389

== ENCOUNTER 2024-01-21 15:45 | Outpatient (REF) | payer OTHER, SELFPAY ==
[2024-01-22 14:43] LABS: HCV Log PCR <1.18 NOT DETECTED Log IU/mL (NOT DETECTED); HepC Viral Load <15 NOT DETECTED IU/mL (NOT DETECTED)
== END 2024-01-21 15:46 | disposition home or self-care (01) ==
LOC: HO.LAB 15:45
PROVIDERS: PCP Internal Medicine; Visit Provider Obstetrics & Gynecology
DX: R76.8 Other specified abnormal immunological findings in serum (principal)
CPT/HCPCS: 36415; 87522

== ENCOUNTER 2024-01-26 12:41 | Outpatient (REF) | payer OTHER, SELFPAY | END 2024-01-26 12:42 | disposition home or self-care (01) | LOC: HO.US 12:41 | PROVIDERS: PCP Internal Medicine; Visit Provider Obstetrics & Gynecology | DX: N93.9 Abnormal uterine and vaginal bleeding, unspecified (principal) | CPT/HCPCS: 76830; 76856 ==

== ENCOUNTER 2024-02-08 11:16 | Outpatient (AMB) | payer OTHER, SELFPAY ==
--- NOTE | 2024-02-08 11:30 | A.OFFVIS_ITS ---
Intake Visit Reasons: Right shoulder inj, last inj 08/24/23 Intake Note: Sherly is a 48 year old female who presents today for a repeat injection, last injection 08/24/23. Patient reports her last injection didn't give her much relief. Allergies Latex Allergy (Mild, Uncoded 01/18/24 10:15) Rash HPI HPI Right shoulder inj, last inj 08/24/23: Details: 48-year-old right hand dominant female who presents in the office today for a follow up of right shoulder pain. I last saw the patient in the office on 11/03/23 when she was recommended to continue to attend all the physical therapy sessions. She received a cortisone injection in the right shoulder on 09/04/23. While in the office today, the patient reports her last cortisone injection in the right shoulder did not provide her with much relief. 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 No ecchymosis, erythema, or edema. Forward flexion lacking 30 degrees. Abduction lacking 40 degrees. External rotation to end range. Able to reach back pocket. Negative cross-body reach. Negative drop arm. Negative empty can. NVI. Office Procedures AMB Joint Injection/Aspiration Joint Injection/Aspiration Primary Site: right shoulder Prep: site was prepped using aseptic technique, ethochloride spray was applied and injection warnings given Injected: 80 mg of, DepoMedrol and with 8 mL of (2% plain lido ) Approach Used: posterolateral Procedure: The patient tolerated the procedure well, but had some pain with the injection and there was some relief with the local anesthesia Coding 01780 - Large joint Procedure code (CPT) selection complete Assessment & Plan Assessment & Plan (1) Painful arc syndrome of right shoulder: Code(s): M75.101 - Unspecified rotator cuff tear or rupture of right shoulder, not specified as traumatic Category: Medical Plan Ms. Cohen is a 48-year-old right hand dominant female who presents in the office today for a follow up of right shoulder pain. I last saw the patient in the office on 11/03/23 when she was recommended to continue to attend all the physical therapy sessions. She received a cortisone injection in the right shoulder on 09/04/23. While in the office today, the patient reports her last cortisone injection in the right shoulder did not provide her with much relief. The patient was offered a cortisone injection in the right shoulder with 80 mg of Depo-Medrol. The patient was explained the risks, benefits, and alternatives to receiving this injection. After receiving consent for the injection, the patient had the procedure done while in the office today. The patient tolerated the procedure well with no complication. Follow-up will be PRN, or sooner if needed. MRI of the right shoulder, obtained on 11/24/23, revealed: 1. Moderate supraspinatus and infraspinatus tendinosis. No rotator cuff tear is seen. 2. Mild acromioclavicular arthritis. Patient Instructions: Scribed by Nereyda Lyn biomedical service engineer, for Penny Mojica PA-C on 02/08/2024 at 11:45 am EST. Coding Level of Care Code Est Pt Level 3 (44004) Diagnoses Painful arc syndrome of right shoulder M75.101 CPT Codes Coding - 11094 Large joint: 34606 - Large joint ([id number])
== END 2024-02-08 12:24 | disposition home or self-care (01) ==
PROVIDERS: PCP Internal Medicine; Visit Provider Physician Assistant
DX: M75.101 Unspecified rotator cuff tear or rupture of right shoulder, not specified as traumatic (principal)
CPT/HCPCS: 20610; 99213

== ENCOUNTER → 2024-02-08 11:16 | Outpatient (BNVA) | payer OTHER, SELFPAY | PROVIDERS: PCP Internal Medicine; Visit Provider Physician Assistant | DX: M75.101 Unspecified rotator cuff tear or rupture of right shoulder, not specified as traumatic (principal); M25.511 Pain in right shoulder | CPT/HCPCS: 20610; 99212; J1010; J2003 ==

== ENCOUNTER 2024-02-11 11:53 | Outpatient (REF) | payer OTHER, SELFPAY ==
--- NOTE | ~2024-02-11 | MM_ITS ---
EXAMINATION: MM SCREENING DIGITAL BREAST TOMOSYNTHESIS, BILATERAL CLINICAL INFORMATION: Screening. Asymptomatic. COMPARISON: Mammography: Comparison is made with available priors TECHNIQUE: Digital breast mammography with tomosynthesis is performed in both the craniocaudal and mediolateral oblique views along with computer-aided detection (CAD). FINDINGS: The breasts are heterogeneously dense, which may obscure small masses (ACR BI-RADS breast composition Category c). Bilateral postsurgical changes are stable. There are no significant masses, abnormal calcifications, or other abnormalities. MM/MM tomosynthesis screening BI IMPRESSION: No mammographic evidence of malignancy. ASSESSMENT: BI-RADS BI-RADS 2 - Benign Findings RECOMMENDATION: Routine annual mammography screening. 1 year F/U This examination should not preclude the clinical evaluation of a suspicious palpable abnormality. This patient's information was entered into a reminder system with a target due date for their next mammogram. Electronically signed by: Dana Kaur DO 02/22/2024 09:45 AM TENA
== END 2024-02-11 11:54 | disposition home or self-care (01) ==
LOC: HO.MAMMO 11:53
PROVIDERS: PCP Internal Medicine; Visit Provider Internal Medicine
DX: Z12.31 Encounter for screening mammogram for malignant neoplasm of breast (principal)
CPT/HCPCS: 77063; 77067

== ENCOUNTER → 2024-02-11 12:15 | Outpatient (BNV) | payer OTHER, SELFPAY | PROVIDERS: PCP Internal Medicine; Visit Provider Internal Medicine | DX: Z12.31 Encounter for screening mammogram for malignant neoplasm of breast (principal) | CPT/HCPCS: 77063; 77067 ==

== ENCOUNTER 2024-03-02 09:29 | Outpatient (REF) | payer OTHER, SELFPAY ==
[2024-03-03 03:21] LABS: CT PCR NOT DETECTED (Not Detect.); NG PCR NOT DETECTED (Not Detect.)
[2024-03-03 09:14] LABS: Bacterial Vaginosis PCR NEGATIVE (Negative); Candida Group PCR NOT DETECTED (Not Detect); Candida glab krusei PCR NOT DETECTED (Not Detect); Trichomonas vaginalis PCR NOT DETECTED (Not Detect)
== END 2024-03-02 09:30 | disposition home or self-care (01) ==
LOC: HO.LNP 09:29
PROVIDERS: PCP Internal Medicine; Visit Provider Obstetrics & Gynecology
DX: N93.9 Abnormal uterine and vaginal bleeding, unspecified (principal); A74.9 Chlamydial infection, unspecified; Z11.3 Encounter for screening for infections with a predominantly sexual mode of transmission
CPT/HCPCS: 0352U; 87491; 87591; 99212

== ENCOUNTER 2024-03-02 09:29 | Outpatient (AMB) | payer OTHER, SELFPAY ==
--- NOTE | 2024-03-02 09:31 | MHC.OFFVIS ---
Intake Visit Reasons: Heavy menstrual bleeding and clotting Welfare Centre Manager: Welfare Centre Manager Present (Kathie) Accompanied by: Self / Same As Patient Allergies Latex Allergy (Mild, Uncoded 01/18/24 10:15) Rash HPI Comments Details: The patient is presenting for follow-up to discuss the results of her abnormal uterine bleeding workup and options of treatment. The following workup was done.: H&H= 9.6/31.2 TSH, prolactin, hCG, FSH/LH in the premenopausal range GC negative, chlamydia positive, the patient was retested at [facility] with her the results came back negative, no risk of exposure. Co testing was done in 12/12 was negative. 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 False-positive Code(s): A74.9 - Chlamydial infection, unspecified Category: Medical Plan: GC/CT with BV panel taken. Discussed with the patient possibility of false positive chlamydia. All questions answered, the patient verbalized understanding Coding Level of Care Code Est Pt Level 3 (73219) Diagnoses Abnormal uterine bleeding (AUB) N93.9 Chlamydia A74.9
--- OUTSIDE RECORDS SUMMARY | 2024-03-02 23:49 | XMS_ITS ---
Author Organization [facility] Address [address] [place] [address] Care Team Providers Care Corner Cutter Name Role Phone Ash Barajas MD Primary Care Provider Patrick Ramírez Jr Unavailable [phone] ALLERGIES No Known Allergies REASON FOR VISIT Patient presents today for acid reflux , discuss egd MEDICATIONS Medication SIG (Take, Route, Frequency, Duration) Notes Start Date End Date Status Amphetamine-Dextroamphetam ine 20 MG 1 tablet Orally once a day A ctive Omeprazole 20 MG 1 Orally Once a day for 30 day(s) 05/18/2019 Active IMMUNIZATIONS Vaccine Route Administration Date Status Comme nts Influenza Unknown 03/11/2023 Refused SOCIAL HISTORY Tobacco Use: Social History Observation Description Date Details (start date - stop date) Never Smoker NA - NA Sex Assigned At : Social History Observation Description Sex Assigned At Unknown Tobacco Use/Smoking Question Answer Notes Patient is a nonsmoker Alcohol Screen Question Answer Notes Did you have a drink containing alcohol in the p ast year? No Points 0 Interpretation Negative PROBLEMS Problem Type ICD Code Onset Dates Problem Status W/U Status Risk SNOMED Code Notes Problem Gastroesophageal reflux disease, unspecified whether esophagitis present (K21.9) Active confirmed 334437278 Problem Colon cancer screening (Z12.11) Active confirmed 672188427 VITAL SIGNS BMI 25.57 kg/m2 03/11/2023 Blood pressure systolic 000 mm Hg 03/11/20 23 Blood pressure diastolic 00 mm Hg 023 Height 64 in 03/11/2023 Temperature 97.3 degrees Fahrenheit 03/11/20 23 Weight 149 lbs 03/11/2023 Encounters Encounter Location Date Provider Diagnosis [facility] [address] [place] [address] 03/11/2023 Patrick Epps Jr Gastroesophageal reflux disease, unspecified whether esophagitis present K21.9 and Colon cancer screening Z12.11 ASSESSMENTS Encounter Date Diagnosis Assessment Notes Treatment Notes Treatment Clinical Notes 03/11/2023 Gastroesophageal reflux disease, unspecified whether esophagitis present (ICD-10 - K21.9) Gastroesophageal reflux disease material was printed 03/11/2023 Colon cancer screening (ICD-10 - Z12.11) PLAN OF TREATMENT Treatment Notes Assessment Notes Gastroesophageal reflux dise ase, unspecified whether esophagitis present Gastroesophageal reflux disease material was printed Next Appt Details Follow Up: 1 Year, Reason: Progress Notes * Examination Category Sub-Category Detail Notes General Examination GENERAL APPEARANCE: in no ac kayla distress HEAD: normocephalic EYES: sclera non-icteric NECK/THYROID: no lymphadenopathy HEART: S1, S2 normal, no mu rmurs CHEST: normal shape and exp ansion LUNGS: clear to auscultatio n bilaterally ABDOMEN: soft, nontender, non distended, bowel sounds present, no organomegaly SKIN: anicteric EXTREMITIES: no clubbing, cyanosi s, or edema PSYCH: cognitive function i ntact ORAL CAVITY: mucosa moist
--- OUTSIDE RECORDS SUMMARY | 2024-03-02 23:49 | XMS_ITS | Patient Health Record ---
Author Organization [facility] Address [address] [place] [address] Care Team Providers Care Professor Of Early Childhood Education Name Role Phone Ash Barajas MD Primary Care Provider Patrick Ramírez Jr Unavailable ALLERGIES No Known Allergies REASON FOR REFERRAL No Information MEDICATIONS Medication SIG (Take, Route, Frequency, Duration) Notes Start Date End Date Status Amphetamine-Dextroamphetam ine 20 MG 1 tablet Orally once a day A ctive Omeprazole 20 MG 1 Orally Once a day for 30 day(s) 05/18/2019 Active IMMUNIZATIONS Vaccine Route Administration Date Status Comme nts Influenza Unknown 04/20/2019 Refused Influenza Unknown 03/11/2023 Refused SOCIAL HISTORY Tobacco [...] W/U Status Risk SNOMED Code Notes Problem Colon cancer screening (Z12.11) Active confirmed 774328021 Problem Rectal bleeding (K62.5) Active confirmed 36568541 Problem Iron deficiency anemia, unspecified iron deficiency anemia type (D50.9) Active confirmed 71234052 Problem Gastroesophageal reflux disease, unspecified whether esophagitis present (K21.9) Active confirmed 986053344 VITAL SIGNS Temperature 97.3 degrees Fahrenheit 03/11/2023 Blood pressure diastolic 00 mm Hg 03/11/2023 Height 64 in 03/11/2023 Blood pressure systolic 000 mm Hg 03/11/2023 Weight 149 lbs 03/11/2023 BMI 25.57 kg/m2 03/11/2023 Encounters Encounter Location Date Provider Diagnosis [facility] [address] [place] [address] 03/11/2023 Patrick Epps Jr Gastroesophageal reflux disease, unspecified whether esophagitis present K21.9 and Colon cancer screening Z12.11 ASSESSMENTS Encounter Date Diagnosis Assessment Notes Treatment Notes Treatment Clinical Notes 03/11/2023 Colon cancer screening (ICD-10 - Z12.11) 03/11/2023 Gastroesophageal reflux disease, unspecified whether esophagitis present (ICD-10 - K21.9) Gastroesophageal reflux disease material was printed PLAN OF TREATMENT Future Test Test Name Order Date UPPER GI ENDOSCOPY 04/20/2019 COLONOSCOPY 04/20/2019 Insurance Providers Payer Name Payer Address Payer Phone Subscriber Number Group Number Insured Name Patient Relationship to Insured Coverage Start Date Coverage End Date [facility] [address] [address] [place], [place] [id number] [phone] [id number] YAO MARRUFO Self - patient is the insured MEDICAID OF [facility] [address] [place] [address] [id number] YAO MARRUFO Self - patient is the insured MEDICAL (GENERAL) HISTORY Medical History History ICD Code Attention deficit disorder Gastroesophageal reflux dise ase, EGD 05/12, esophagitis but no H. pylori/Chavarria's/celiac disease Colonoscopy 05/12, normal, ten-year follo wup Iron deficiency anemia Surgical History Surgery Date(Month/Year) gastric sleeve 2015 section x1 Cholecystectomy 11/11
== END 2024-03-02 10:45 | disposition home or self-care (01) ==
PROVIDERS: PCP Internal Medicine; Visit Provider Obstetrics & Gynecology
DX: N93.9 Abnormal uterine and vaginal bleeding, unspecified (principal); A74.9 Chlamydial infection, unspecified
CPT/HCPCS: 99213

== ENCOUNTER 2024-03-10 11:21 | Outpatient (AMB) | payer OTHER, SELFPAY ==
--- OUTSIDE RECORDS SUMMARY | 2024-03-10 11:25 | XMS_ITS ---
Author Organization [facility] Address [address] [place] [address] Care Team Providers Care Sales Support Consultant Name Role Phone Ash Barajas MD Primary Care Provider Patrick Ramírez Jr Unavailable [phone] ALLERGIES No Known Allergies REASON FOR [...] unspecified whether esophagitis present (K21.9) Active confirmed 521985653 Problem Colon cancer screening (Z12.11) Active confirmed 436667551 VITAL SIGNS BMI 25.57 kg/m2 03/11/2023 Blood pressure systolic 000 mm Hg 03/11/20 23 Blood pressure diastolic 00 mm Hg 023 Height 64 in 03/11/2023 Temperature 97.3 degrees Fahrenheit 03/11/20 23 Weight 149 lbs 03/11/2023 Encounters Encounter Location Date Provider Diagnosis [facility] [address] [place] [address] 03/11/2023 Patrick Epps Jr Gastroesophageal reflux disease, [...]
--- OUTSIDE RECORDS SUMMARY | 2024-03-10 11:25 | XMS_ITS | Patient Health Record ---
Author Organization [facility] Address [address] [place] [address] Care Team Providers Care Supervisor [place] Name Role Phone Ash Barajas MD Primary Care Provider Patrick Ramírez Jr Unavailable [phone] ALLERGIES No Known Allergies REASON FOR REFERRAL [...] Problem Colon cancer screening (Z12.11) Active confirmed 052647395 Problem Rectal bleeding (K62.5) Active confirmed 87373025 Problem Iron deficiency anemia, unspecified iron deficiency anemia type (D50.9) Active confirmed 51778631 Problem Gastroesophageal reflux disease, unspecified whether esophagitis present (K21.9) Active confirmed 522815816 VITAL SIGNS Temperature 97.3 degrees Fahrenheit 03/11/2023 Blood pressure diastolic 00 mm Hg 03/11/2023 Height 64 in 03/11/2023 Blood pressure systolic 000 mm Hg 03/11/2023 Weight 149 lbs 03/11/2023 BMI 25.57 kg/m2 03/11/2023 Encounters Encounter Location Date Provider Diagnosis [facility] [address] [place] [address] 03/11/2023 Patrick Epps Jr Gastroesophageal reflux disease, [...] Insured Coverage Start Date Coverage End Date [facility] [address] [address] [place], [place] [id number] [phone] [id number] YAO MARRUFO Self - patient is the insured MEDICAID OF [facility] [address] [place] [address] [id number] YAO MARRUFO Self - patient is the insured MEDICAL (GENERAL) HISTORY Medical History History ICD Code Attention deficit disorder Gastroesophageal reflux dise ase, EGD 05/12, esophagitis but no H. pylori/Chavarria's/celiac disease Colonoscopy 05/12, normal, ten-year follo wup Iron deficiency anemia Surgical History Surgery Date(Month/Year) gastric sleeve 2015 section x1 Cholecystectomy 11/11
--- NOTE | 2024-03-10 11:39 | A.OFFVIS_ITS ---
Vital Signs 03/10/24 11:41 Height 5 ft 4 in Weight 140 lb BMI 24.0 Intake Visit Reasons: EMB Security Attendant Required: No Information Interpreted: non-clinical & clinical Brain Wave Technician: Brain Wave Technician Present (Marcia HOLLIS) Accompanied by: Self / Same As Patient Allergies Latex Allergy (Mild, Uncoded 03/10/24 11:41) Rash Is last menstrual period known: Yes Last menstrual period: 02/13/24 HPI Comments Details: Presenting for EMB. 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 hysteroscopy D&C) & the risks were discussed with the patient including but not limited: pain, uterine perforation, bleeding, infection, possible injury to bladder, bowel, ureter, possible need for blood transfusion with all its possible risks. The patient verbalized understanding all questions answered and signed consent. Urine test done in the office was negative The patient was placed into the dorsal lithotomy position; a speculum was inserted in the vagina. Using aseptic technique for the procedure, the cervix was cleansed with Betadine. The anterior lip of the cervix was grasped with a single tooth tenaculum. The uterus was sounded to 7 cm with a 4 mm Pipelle was used. Tissues samples were obtained and placed in formalin, in a patient labeled container and sent to the pathology department. At the end of the procedure, there was minimal bleeding noted The patient tolerated the procedure well and was discharged in good condition with the following instructions: Nothing in the vagina until the bleeding stops. No sex until the bleeding stops, to call if any of the following occurs: fever (>100.4), flu-like symptoms, abdominal pain, heavy bleeding, four smelling vaginal discharge. The patient was instructed to schedule a Follow up appointment in 2 weeks to discuss pathology results of the biopsy and treatment options. This note was generated with a voice recognition program. Some errors may have been overlooked during the review of this note. Sometimes these errors may affect the content or meaning of a given sentence. [id number] Biopsy Results AMB Test Urine AMB Test Urine Negative Last Edit by Marcia Curtis CMA on 11:43 AMB Test Urine AMB Test Urine Negative Last Edit by Marcia Curtis CMA on 12:09 Results Reviewed Results Reviewed: Laboratory Last Values [facility] Clinic Negative 03/10/24 11:42 Assessment & Plan Assessment & Plan (1) Hepatitis C antibody positive in blood: Code(s): R76.8 - Other specified abnormal immunological findings in serum Category: Medical Plan: Explained to the patient the hepatitis-C serology results for hep C antibody positive but hep C RNA negative, possible recent exposure versus false-positive, recommended Repeat hep C RNA in 4 weeks, ordered. Instructions given the patient to have blood drawn in 4 weeks and a follow-up appointment. All questions answered, the patient verbalized understanding (2) Abnormal uterine bleeding (AUB): Code(s): N93.9 - Abnormal uterine and vaginal bleeding, unspecified Category: Medical Plan: EMB done, see procedure note Orders: Orders AMB HCG Urine Test Today Z32.02 - Encounter for test, result negative AMB HCG Urine Test Today N93.9 - Abnormal uterine and vaginal bleeding, unspecified, Z32.02 - Encounter for test, result negative Hepatitis C Antibody Reflex 4 Weeks R76.8 - Other specified abnormal immunological findings in serum Surgical Today N93.9 - Abnormal uterine and vaginal bleeding, unspecified, Z32.02 - Encounter for test, result negative AMB Endometrial Biopsy Today N93.9 - Abnormal uterine and vaginal bleeding, unspecified Coding Level of Care Code Est Pt Level 3 (77076) Diagnoses Hepatitis C antibody positive in blood R76.8 Abnormal uterine bleeding (AUB) N93.9 CPT Codes Endometrial Biopsy - CPT: 13810-Qjhobztisox Biopsy ([id number])
[2024-03-10 11:41] VITALS: BMI 24.0
== END 2024-03-10 12:11 | disposition home or self-care (01) ==
LOC: HO.HWS 11:21
PROVIDERS: PCP Internal Medicine; Visit Provider Obstetrics & Gynecology
DX: R76.8 Other specified abnormal immunological findings in serum (principal); N93.9 Abnormal uterine and vaginal bleeding, unspecified; Z32.02 Encounter for pregnancy test, result negative
CPT/HCPCS: 58100

== ENCOUNTER 2024-03-10 11:21 | Outpatient (REF) | payer OTHER, SELFPAY | END 2024-03-10 11:22 | disposition home or self-care (01) | LOC: HO.LNP 11:21 | PROVIDERS: PCP Internal Medicine; Visit Provider Obstetrics & Gynecology | DX: N93.9 Abnormal uterine and vaginal bleeding, unspecified (principal); Z32.02 Encounter for pregnancy test, result negative | CPT/HCPCS: 58100; 81025; 88305 ==

== ENCOUNTER 2024-03-30 13:33 | Outpatient (AMB) | payer OTHER, SELFPAY ==
--- NOTE | 2024-03-30 13:34 | A.OFFVIS_ITS ---
Intake Visit Reasons: EMB results Allergies Latex Allergy (Mild, Uncoded 03/10/24 11:41) Rash HPI Comments Details: The patient scheduled a telehealth visit for follow-up to discuss the results of her abnormal uterine bleeding workup and options of treatment. The following workup was done.: H&H= 9.6/31.2 TSH, prolactin, hCG, GC and chlamydia were negative. FSH/LH= 12.1/4.5 Endometrial biopsy pathology showed the following: Early secretory endometrium; no atypia or hyperplasia identified Co testing was done in 12/12 was negative. Mammogram was BI-RADS 2. Pelvic ultrasound showed the following: UTERUS: The uterus is anteverted. Size: 9 x 6 x 6.3 cm. Uterine mass: There is no uterine mass. Cervix: Grossly unremarkable. Endometrium: Endometrium is thickened hypertrophic endometrial thickness measures 2.2 cm ADNEXA: Normal Right ovary: Normal in size. Left ovary: There is involuted corpus luteal cyst measure up to 1.5 cm. Doppler exam: Normal Doppler flow identified in both ovaries. FREE FLUID: Trace amount of free fluid. 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 Female Reproductive History Menstrual Age of Menarche: 16 Review of Systems Const All systems reviewed & are unremarkable except as noted in HPI and below Reports as per HPI and Reports no additional complaints GI Reports no additional complaints Reports no additional complaints Telehealth Telehealth Telehealth Platform: Telephone Location of provider rendering services: practice address Location of patient: address on file Patient Identification confirmed using: Name, : Yes Telehealth method: video Patient verbally consented to treatment: Yes Patient verbally consented to billing insurance company: Yes Patient informed of any privacy concerns related to visit: Yes Assessment & Plan Assessment & Plan (1) Abnormal uterine bleeding (AUB): Code(s): N93.9 - Abnormal uterine and vaginal bleeding, unspecified Category: Medical Plan: Discussed with the patient the results of the work up done and options of treatment including Lysteda, BCP's, Mirena IUD, endometrial ablation and hysterectomy. All pros, cons, risks and benefits if each option was discussed with the patient and the patient decided to go ahead with Lysteda , so a more detailed discussion re: Lysteda including mechanism of action, benefits, risks including but not limited to thrombosis and strokes, Instructions were given on how to use, 2 tablets p.o. 3 times a day day 1 up to 3-5 days of menses and to schedule a 3 months follow-up appointment. The patient verbalized understanding and agreed with the plan. I spent a total of 20 minutes reviewing the chart, talking to the patient via video and documenting in the medical record. Medications: New tranexamic acid Start 1st day of menses and take it up to 3-5 days of menses. 1,300 mg (2 x 650 mg) PO TID 5 days 30 tabs 2RF Coding Level of Care Code Tele Est Pt Level 3 (74893) Diagnoses Abnormal uterine bleeding (AUB) N93.9
--- OUTSIDE RECORDS SUMMARY | 2024-03-30 13:35 | XMS_ITS ---
Author Organization [facility] Address [address] [place] [address] Care Team Providers Care Western Felt Hat Blocker Name Role Phone Ash Barajas MD Primary Care Provider Patrick Ramírez Jr Unavailable ALLERGIES No Known Allergies REASON FOR VISIT [...] unspecified whether esophagitis present (K21.9) Active confirmed 746057551 Problem Colon cancer screening (Z12.11) Active confirmed 311421232 VITAL SIGNS BMI 25.57 kg/m2 03/11/2023 Blood pressure systolic 000 mm Hg 03/11/20 23 Blood pressure diastolic 00 mm Hg 023 Height 64 in 03/11/2023 Temperature 97.3 degrees Fahrenheit 03/11/20 23 Weight 149 lbs 03/11/2023 Encounters Encounter Location Date Provider Diagnosis [facility] [address] [place] [address] 03/11/2023 Patrick Epps Jr Gastroesophageal reflux disease, [...] General Examination GENERAL APPEARANCE: in no ac kob[place] distress HEAD: normocephalic EYES: sclera non-icteric NECK/THYROID: no lymphadenopathy HEART: S1, S2 normal, no mu rmurs CHEST: normal shape and exp ansion LUNGS: clear to auscultatio n bilaterally ABDOMEN: soft, nontender, non distended, bowel sounds present, no organomegaly SKIN: anicteric EXTREMITIES: no clubbing, cyanosi s, or edema PSYCH: cognitive function i ntact ORAL CAVITY: mucosa moist
--- OUTSIDE RECORDS SUMMARY | 2024-03-30 13:35 | XMS_ITS | Patient Health Record ---
Author Organization [facility] Address [address] [place] [address] Care Team Providers Care Eligibility Manager Name Role Phone Ash Barajas MD Primary Care Provider Patrick Ramírez Jr Unavailable [phone] ALLERGIES No Known Allergies REASON FOR REFERRAL [...] Problem Colon cancer screening (Z12.11) Active confirmed 847610787 Problem Rectal bleeding (K62.5) Active confirmed 28566443 Problem Iron deficiency anemia, unspecified iron deficiency anemia type (D50.9) Active confirmed 10180458 Problem Gastroesophageal reflux disease, unspecified whether esophagitis present (K21.9) Active confirmed 352219754 PLAN OF TREATMENT Future Test Test Name Order Date UPPER GI ENDOSCOPY 04/20/2019 COLONOSCOPY 04/20/2019 Insurance Providers Payer Name Payer Address Payer Phone Subscriber Number Group Number Insured Name Patient Relationship to Insured Coverage Start Date Coverage End Date [facility] [address] [address] [place], [place] [id number] [phone] [id number] YAO MARRUFO Self - patient is the insured MEDICAID OF [facility] [address] [place] [address] [phone] [id number] YAO MARRUFO Self - patient is the insured MEDICAL (GENERAL) HISTORY Medical History History ICD Code Attention deficit disorder Gastroesophageal reflux dise ase, EGD 05/12, esophagitis but no H. pylori/Chavarria's/celiac disease Colonoscopy 05/12, normal, ten-year follo wup Iron deficiency anemia Surgical History Surgery Date(Month/Year) gastric sleeve 2015 section x1 Cholecystectomy 11/11
== END 2024-03-30 14:02 | disposition home or self-care (01) ==
LOC: HO.HWS 13:33
PROVIDERS: PCP Internal Medicine; Visit Provider Obstetrics & Gynecology
DX: N93.9 Abnormal uterine and vaginal bleeding, unspecified (principal)
CPT/HCPCS: 99213

== ENCOUNTER → 2024-03-30 13:33 | Outpatient (BNVA) | payer OTHER, SELFPAY | PROVIDERS: PCP Internal Medicine; Visit Provider Obstetrics & Gynecology ==

== ENCOUNTER 2024-04-29 09:50 | Outpatient (REF) | payer OTHER, SELFPAY ==
--- OUTSIDE RECORDS SUMMARY | 2024-04-29 10:36 | XMS_ITS ---
Author Organization [facility] Address [address] [place] [address] Care Team Providers Care Rail Signal Mechanic Name Role Phone Ash Barajas MD [...] unspecified whether esophagitis present (K21.9) Active confirmed 306416007 Problem Colon cancer screening (Z12.11) Active confirmed 889675658 VITAL SIGNS BMI 25.57 kg/m2 03/11/2023 Blood pressure systolic 000 mm Hg 03/11/20 23 Blood pressure diastolic 00 mm Hg 023 Height 64 in 03/11/2023 Temperature 97.3 degrees Fahrenheit 03/11/20 23 Weight 149 lbs 03/11/2023 Encounters Encounter Location Date Provider Diagnosis [facility] [address] [place] [address] 03/11/2023 Patrick Epps Jr Gastroesophageal reflux disease, [...]
--- OUTSIDE RECORDS SUMMARY | 2024-04-29 10:36 | XMS_ITS | Patient Health Record ---
Author Organization [facility] Address [address] [place] [address] Care Team Providers Care Hand Plug Shaper Name Role Phone Ash Barajas MD Primary [...] Problem Colon cancer screening (Z12.11) Active confirmed 795927142 Problem Rectal bleeding (K62.5) Active confirmed 11249614 Problem Iron deficiency anemia, unspecified iron deficiency anemia type (D50.9) Active confirmed 74846535 Problem Gastroesophageal reflux disease, unspecified whether esophagitis present (K21.9) Active confirmed [id number] PLAN OF TREATMENT Future Test Test Name Order Date UPPER GI ENDOSCOPY 04/20/2019 COLONOSCOPY 04/20/2019 Insurance Providers Payer Name Payer Address Payer Phone Subscriber Number Group Number Insured Name Patient Relationship to Insured Coverage Start Date Coverage End Date [facility] [address] [address] [place], [place] [id number] [phone] [id number] YAO MARRUFO Self - patient is the insured MEDICAID OF [facility] [address] [place] [address] [id number] YAO MARRUFO Self - patient is the insured MEDICAL (GENERAL) HISTORY Medical History History ICD Code Attention deficit disorder Gastroesophageal reflux dise ase, EGD 05/12, esophagitis but no H. pylori/Chavarria's/celiac disease Colonoscopy 05/12, normal, ten-year follo wup Iron deficiency anemia Surgical History Surgery Date(Month/Year) gastric sleeve 2015 section x1 Cholecystectomy 11/11
[2024-04-29 11:13] LABS: Appearance Urine Cloudy; Color Urine Yellow; Glucose Urine UA Negative (Negative); Leukocyte Esterase Urine Moderate (2+) (Negative); Nitrite Urine Negative (Negative); PH 5.5 (5.0-9.0); Specific Gravity - Urine >= 1.030 (1.005-1.025); UMIC TRIGGER UACC YES; Urine Blood Small (1+) (Negative); Urine Ketones Trace mg/dL (Negative); Urine Protein Trace mg/dL (Neg-Trace)
[2024-04-29 11:35] LABS: Bacteria Urine 4+ (None Seen); Calcium Oxalate Crystals Urine Present; Hyaline Casts Urine 0-2 /LPF (0-2); Squamous Epithelial Cell Urine 0-2 /HPF (0-2); UACC Culture Trigger YES; WBC Urine >50 /HPF (0-5)
== END 2024-04-29 09:51 | disposition home or self-care (01) ==
LOC: HO.LAB 09:50
PROVIDERS: PCP Internal Medicine; Visit Provider Internal Medicine
DX: R30.0 Dysuria (principal)
CPT/HCPCS: 81001; 81003; 87086; 87088; 87186

== ENCOUNTER 2024-05-05 07:12 | Day surgery (SDC) | payer OTHER, SELFPAY ==
--- OUTSIDE RECORDS SUMMARY | 2024-03-08 08:01 | XMS_ITS ---
Author Organization [facility] Address [address] [place] [address] Care Team Providers Care Typewriter Mechanic Name Role Phone Ash Barajas MD Primary Care Provider Patrick Ramírez Jr Unavailable [phone] ALLERGIES No Known Allergies REASON FOR [...] unspecified whether esophagitis present (K21.9) Active confirmed 469071194 Problem Colon cancer screening (Z12.11) Active confirmed 698205225 VITAL SIGNS BMI 25.57 kg/m2 03/11/2023 Blood pressure systolic 000 mm Hg 03/11/20 23 Blood pressure diastolic 00 mm Hg 023 Height 64 in 03/11/2023 Temperature 97.3 degrees Fahrenheit 03/11/20 23 Weight 149 lbs 03/11/2023 Encounters Encounter Location Date Provider Diagnosis [facility] [address] [place] [address] 03/11/2023 Patrick Epps Jr Gastroesophageal reflux disease, [...]
--- OUTSIDE RECORDS SUMMARY | 2024-03-08 08:01 | XMS_ITS | Patient Health Record ---
Author Organization [facility] Address [address] [place] [address] Care Team Providers Care Merit System Director Name Role Phone Ash Barajas MD Primary [...] Problem Colon cancer screening (Z12.11) Active confirmed 459864037 Problem Rectal bleeding (K62.5) Active confirmed 58154589 Problem Iron deficiency anemia, unspecified iron deficiency anemia type (D50.9) Active confirmed 79384420 Problem Gastroesophageal reflux disease, unspecified whether esophagitis present (K21.9) Active confirmed 901380637 VITAL SIGNS Temperature 97.3 degrees Fahrenheit 03/11/2023 Blood pressure diastolic 00 mm Hg 03/11/2023 Height 64 in 03/11/2023 Blood pressure systolic 000 mm Hg 03/11/2023 Weight 149 lbs 03/11/2023 BMI 25.57 kg/m2 03/11/2023 Encounters Encounter Location Date Provider Diagnosis [facility] [address] [place] [address] 03/11/2023 Patrick Epps Jr Gastroesophageal reflux disease, [...] Insured Coverage Start Date Coverage End Date [facility] [address] [address] [place], [place] [id number] [phone] [id number] YAO MARRUFO Self - patient is the insured MEDICAID OF [facility] [address] [place] [address] [id number] YAO MARRUFO Self - patient is the insured MEDICAL (GENERAL) HISTORY Medical History History ICD Code Attention deficit disorder Gastroesophageal reflux dise ase, EGD 05/12, esophagitis but no H. pylori/Chavarria's/celiac disease Colonoscopy 05/12, normal, ten-year follo wup Iron deficiency anemia Surgical History Surgery Date(Month/Year) gastric sleeve 2015 section x1 Cholecystectomy 11/11
[2024-05-03 14:46] VITALS: BMI 25.6
--- NOTE | 2024-05-04 09:20 | P.CONAN_ITS ---
Documented by User: Aida Olivera NP 05/04/24 09:20 HPI - Anesthesia Eval Consult details Narrative: 48yo F for Colonoscopy [facility] Active Problems Active Problems: All Active Problems Chlamydia (Acute) Hepatitis C antibody positive in blood (Acute) Screen for STD (sexually transmitted disease) (Acute) Osteoarthritis of right hip (Acute) Anxiety (Acute) Chronic constipation (Acute) Acid reflux (Acute) Anemia (Acute) Encounter for screening colonoscopy (Acute) Painful arc syndrome of right shoulder (Acute) Abnormal uterine bleeding (AUB) (Acute) Well woman exam (Acute) De Quervain's tenosynovitis, left (Acute) De Quervain's tenosynovitis, right (Acute) Family History Family history of problems with anesthesia: No Surgical History Surgical History Hx of colonoscopy History of esophagogastroduodenoscopy (EGD) History of cholecystectomy History of breast lift Hx of abdominoplasty History of Problems with Anesthesia: No Social History Social History Patient Tobacco Use Status: Never used Tobacco Advance Directives: No Advance Directives Information Provided: Yes Current occupational status: employed 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 Meds Allergies Allergy/AdvReac Type Severity Reaction Status Date / Time Latex Allergy Mild Rash Uncoded 03/10/24 11:41 Home Medications ?Medication ?Instructions ?Recorded ?Confirmed ?Last Taken ?Type dextroamphetamine-amphetamine 20 20 mg PO DAILY 01/09/21 Unknown History mg tablet (Adderall) Exam Height,Weight and Vital Signs: Height 5 ft 4 in Weight 67.585 kg Assessment and Plan Assessment Anesthesia Assessment: Chart Reviewed Final Anesthetic Review Family History of Problems with Anesthesia: No History of Problems with Anesthesia: No Documented by User: Nadege Flynn MD 05/05/24 07:41 [facility] Surgical History Surgical History Hx of colonoscopy History of esophagogastroduodenoscopy (EGD) History of cholecystectomy History of breast lift Hx of abdominoplasty Social History Social History Patient Tobacco Use Status: Never used Tobacco Advance Directives: No Advance Directives Information Provided: Yes Current occupational status: employed 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[employer] Meds Allergies Allergy/AdvReac Type Severity Reaction Status Date / Time Latex Allergy Mild Rash Uncoded 03/10/24 11:41 Home Medications ?Medication ?Instructions ?Recorded ?Confirmed ?Last Taken ?Type dextroamphetamine-amphetamine 20 20 mg PO DAILY 01/09/21 Unknown History mg tablet (Adderall) Exam Airway Mallampati Class: I TM Dist: >3cm Neck ROM: Full Assessment and Plan Assessment Anesthesia Assessment: Anesthesia Plan Discussed Final Anesthetic Review NPO: Yes ASA Class: II Final Preanesthetic Review: No Changes in Pt Med Stat, Meds/Allgs Chart Reviewed, Consent Obtained/Reviewed and Anes Risks/Benef Reviewed Patient Risk: Low Procedure Risk: Low Anesthetic Plan Anesthetic Plan: TIVA Disposition: Standard PACU
--- OUTSIDE RECORDS SUMMARY | 2024-05-05 07:15 | XMS_ITS | Patient Health Record ---
Author Organization [facility] Address [address] [place] [address] Care Team Providers Care Collaborative Physician Name Role Phone Ash Barajas MD Primary Care Provider Patrick Ramírez Jr Unavailable [phone] ALLERGIES No Known Allergies REASON FOR REFERRAL [...] Problem Colon cancer screening (Z12.11) Active confirmed [id number] Problem Rectal bleeding (K62.5) Active confirmed 37948210 Problem Iron deficiency anemia, unspecified iron deficiency anemia type (D50.9) Active confirmed 86559503 Problem Gastroesophageal reflux disease, unspecified whether esophagitis present (K21.9) Active confirmed 666811950 PLAN OF TREATMENT Future Test Test Name Order Date UPPER GI ENDOSCOPY 04/20/2019 COLONOSCOPY 04/20/2019 Insurance Providers Payer Name Payer Address Payer Phone Subscriber Number Group Number Insured Name Patient Relationship to Insured Coverage Start Date Coverage End Date [facility] [address] [address] [place], [place] [id number] [phone] [id number] YAO MARRUFO Self - patient is the insured MEDICAID OF [facility] [address] [place] [address] [phone] [id number] YAO MARRUFO Self - patient is the insured MEDICAL (GENERAL) HISTORY Medical History History ICD Code Attention deficit disorder Gastroesophageal reflux dise ase, EGD 05/12, esophagitis but no H. pylori/Chavarria's/celiac disease Colonoscopy 05/12, normal, ten-year follo wup Iron deficiency anemia Surgical History Surgery Date(Month/Year) gastric sleeve 2015 section x1 Cholecystectomy 11/11
[2024-05-05 07:22] VITALS: BMI 23.0
[2024-05-05 07:32] LABS: UPreg QC Valid YES; Urine Pregnancy NEGATIVE (NEGATIVE)
[2024-05-05] MEDS: Lactated Ringers 1,000 ML 100 ML IVCONT (07:37)
[2024-05-05 07:44] VITALS: BP 127/83; PULSE 86; RESP 18; TEMP 36.8; O2SAT 100
--- NOTE | 2024-05-05 08:02 | MHC.SHP ---
Pre-Procedural Eval Section A - 24 Hr Update-Section A only Date of Service: 05/05/24 Section B - Complete if H&P > 30 days Chief Complaint: screening Details of Present Illness: Hx of colonoscopy History of esophagogastroduodenoscopy (EGD) History of cholecystectomy History of breast lift Hx of abdominoplasty Present Medications: see Short Stay Collaborative assessment Allergies: Allergies Allergy/AdvReac Type Severity Reaction Status Date / Time Latex Allergy Mild Rash Uncoded 05/05/24 07:48 Review of Systems Review of Systems Comment: Ten point ROS negative Exam Exam Comment: Gen appear: No acute distress HEENT: no icterus Chest: No overt resp distress Abd: soft, nontender, nondistended Psych: Stable affect, answering questions appropriately Neuro: A/Ox3 noted to move all extremities spontaneously Ext: no peripheral edema Plan Diagnosis/Plan: Unchanged I have reviewed the history and physical and performed a pertinent physical examination on my patient. No changes have occurred unless specified. Time Spent With Patient Time: Total time managing care of this patient today ____ minutes.
[2024-05-05 09:13] VITALS: BP 116/72; PULSE 84; RESP 14; TEMP 36.1; O2SAT 100
[2024-05-05 09:28] VITALS: BP 115/74; PULSE 84; RESP 16; O2SAT 98
--- NOTE | 2024-05-05 09:35 | P.OPN-COLO_ITS ---
Colonoscopy Operative Note Operative Note Date of Service: 05/05/24 Narrative: Procedure: Colonoscopy Indication: Screening Endoscopist: Vivian Chavarria MD Anesthesia Provider: Nadege Flynn MD Anesthesia type: MAC Instrument: Olympus [id number]-[id number] Consent: Indication, risks vs benefits, and alternatives were discussed with the patient who gave written informed consent to proceed. EKG, pulse, pulse oximetry and blood pressure were monitored throughout the procedure. Please see anesthesia flowsheet. Procedure: The patient was brought to the procedure room and placed in the left lateral decubitus position. IV medications were administered by the anesthesia provider in attendance. A digital rectal exam was performed which was normal. A distal attachment cap was affixed to the tip of the colonoscope which was then inserted through the anus and advanced through the colon to the cecum at 75 cm,and terminal ileum. Appendiceal orifice and ileocecal valve were identified. Mucosa was carefully examined under high definition white light as the instrument was slowly withdrawn in a retrograde panoramic fashion. Retroflexion was performed in rectum. The procedure was not difficult. There were no immediate obvious complications. The quality of the prep was BBPS: 2+2+2 = adequate Withdrawal time 8 minutes. Limitations: No limitations. Findings: Mucosa: Normal to cecum and terminal ileum. Protruding lesions: * Medium internal hemorrhoids without stigmata of recent bleeding. Excavated lesions: * Rare diverticulosis of sigmoid colon. Impression: 1. Normal colon mucosa 2. Diverticulosis 3. Internal hemorrhoids Recommendations: - Repeat colonoscopy for asymptomatic colorectal ca screening in 10 years.
[2024-05-05 09:43] VITALS: BP 120/77; PULSE 68; RESP 18; TEMP 36.1; O2SAT 97
== END 2024-05-05 10:36 | disposition home or self-care (01) ==
PROVIDERS: Nurse Practitioner; PCP Internal Medicine; Visit Provider Internal Medicine
PROC: 0DJD8ZZ Inspection of Lower Intestinal Tract, Via Natural or Artificial Opening Endoscopic (ICD-10-PCS; CPT 45378; principal; 2024-05-05 08:30)
DX: Z12.11 Encounter for screening for malignant neoplasm of colon (principal); K57.30 Diverticulosis of large intestine without perforation or abscess without bleeding; K64.8 Other hemorrhoids; K59.09 Other constipation; K21.9 Gastro-esophageal reflux disease without esophagitis; F41.9 Anxiety disorder, unspecified; Z79.899 Other long term (current) drug therapy; Z91.040 Latex allergy status; Z90.49 Acquired absence of other specified parts of digestive tract; Z98.890 Other specified postprocedural states
CPT/HCPCS: 45378; 81025; J2003; J2704

== ENCOUNTER → 2024-05-05 07:12 | Outpatient (BNV) | payer OTHER, SELFPAY | PROVIDERS: PCP Internal Medicine; Visit Provider Internal Medicine | DX: Z12.11 Encounter for screening for malignant neoplasm of colon (principal); K57.30 Diverticulosis of large intestine without perforation or abscess without bleeding; K64.8 Other hemorrhoids | CPT/HCPCS: 45378 ==

== ENCOUNTER 2024-07-13 10:16 | Outpatient (REF) | payer OTHER, SELFPAY ==
[2024-07-13 11:11] LABS: Hematocrit 29.8 % (37.0-47.0); Hemoglobin 9.1 g/dl (12.0-16.0); Mean Corpuscular HGB Conc 30.5 g/dl (31.0-35.0); Mean Corpuscular Hemoglobin 23.9 pg (27.0-33.0); Mean Corpuscular Volume 78.2 fL (80.0-98.0); Mean Platelet Volume 10.6 fL (9.4-12.3); Platelet Count 217 X10*3/uL (160-400); Red Blood Count 3.81 X10*6/uL (4.20-5.50); Red Cell Distribution Width 14.6 % (11.0-16.0)
[2024-07-13 11:53] LABS: ~HepC Num1 5.24 S/CO (0.00-0.79); ~Hepatitis C Antibody Reactive (Nonreactive)
[2024-07-19 17:39] LABS: HCV Log PCR <1.18 NOT DETECTED Log IU/mL (NOT DETECTED); HepC Viral Load <15 NOT DETECTED IU/mL (NOT DETECTED)
== END 2024-07-13 10:17 | disposition home or self-care (01) ==
LOC: HO.LAB 10:16
PROVIDERS: Visit Provider Obstetrics & Gynecology
DX: N93.9 Abnormal uterine and vaginal bleeding, unspecified (principal); R76.8 Other specified abnormal immunological findings in serum; Z76.0 Encounter for issue of repeat prescription
CPT/HCPCS: 36415; 85027; 86803; 87522; 99212

== ENCOUNTER 2024-07-13 10:16 | Outpatient (AMB) | payer OTHER, SELFPAY ==
--- NOTE | 2024-07-13 10:20 | A.OFFVIS_ITS ---
Vital Signs 07/13/24 10:24 BP 92/60 Intake Visit Reasons: medication follow up Manager Reliability: Manager Reliability Present (Kathie) Accompanied by: Self / Same As Patient Allergies Latex Allergy (Mild, Uncoded 05/05/24 07:48) Rash Is last menstrual period known: Yes Last menstrual period: 07/04/24 Post menopausal: No Patient : No HPI Comments Details: Presenting for Lysteda follow-up. The patient has been taking Lysteda 650 mg 2 tablets p.o. t.i.d. for 3-5 days and has been controlling the menstrual flow and the patient is interested in refill. In addition the patient has been taking iron sulfate 325 mg p.o. q.d. 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 Female Reproductive History Menstrual Age of Menarche: 16 Duration of menses: 3-5 days Date of last menstrual period: 07/04/24 Review of Systems Const All systems reviewed & are unremarkable except as noted in HPI and below Reports as per HPI and Reports no additional complaints GI Reports no additional complaints Reports no additional complaints Physical Exam Vital Signs: Last Vital Signs BP 92/60 07/13/24 10:24 Assessment & Plan Assessment & Plan (1) Abnormal uterine bleeding (AUB): Code(s): N93.9 - Abnormal uterine and vaginal bleeding, unspecified Category: Medical Plan: Lysteda 1300 mg p.o. b.i.d. for 3-5 days during menstrual cycles refill sent to the patient's pharmacy with 11 refills. CBC ordered will check the results and determine indication to continue iron sulfate or not. Instructions given the patient to call in case of recurrence of heavy menstrual cycles. All questions answered, the patient verbalized understanding Orders: Orders Complete Blood Count no Diff Today N93.9 - Abnormal uterine and vaginal bleeding, unspecified Medications: Refilled tranexamic acid Start 1st day of menses and take it up to 3-5 days of menses. 1,300 mg (2 x 650 mg) PO TID 5 days 30 tabs 11RF Coding Level of Care Code Est Pt Level 3 (71678) Diagnoses Abnormal uterine bleeding (AUB) N93.9
[2024-07-13 10:24] VITALS: BP 92/60
--- OUTSIDE RECORDS SUMMARY | 2024-07-13 11:57 | XMS_ITS | Patient Health Record ---
Author Organization [facility] Address [address] [place] [address] Care Team Providers Care Pest Control Worker Helper Name Role Phone Ash Barajas MD Primary Care Provider Patrick Ramírez Jr Unavailable [phone] Allergies No Known Allergies Reason For Referral No Information Medications Medication SIG (Take, Route, Frequency, Duration) Notes Start Date End Date Status Amphetamine-Dextroamphetam ine 20 MG 1 tablet Orally once a day A ctive Omeprazole 20 MG 1 Orally Once a day for 30 day(s) 05/18/2019 Active Immunizations Vaccine Route Administration Date Status Comme nts Influenza Unknown 04/20/2019 Refused Influenza Unknown 03/11/2023 Refused Social History Tobacco Use: Social History Observation Description Date Details (start date - stop date) Never Smoker NA - NA Tobacco Use/Smoking Question Answer Notes Patient is a nonsmoker Alcohol Screen Question Answer Notes Did you have a drink containing alcohol in the p ast year? No Points 0 Interpretation Negative Problems Problem Type SNOMED Code ICD Code Onset Dates Problem Status W/U Status Risk Notes Problem 396465176 Colon cancer screening (Z12.11) Active confirmed Problem 63960031 Rectal bleeding (K62.5) Active confirmed Problem 26493708 Iron deficiency anemia, unspecified iron deficiency anemia type (D50.9) Active confirmed Problem 143306074 Gastroesophageal reflux disease, unspecified whether esophagitis present (K21.9) Active confirmed Plan Of Treatment Future Test Test Name Order Date UPPER GI ENDOSCOPY 04/20/2019 COLONOSCOPY 04/20/2019 Insurance Providers Payer Name Payer Address Payer Phone Subscriber Number Group Number Insured Name Patient Relationship to Insured Coverage Start Date Coverage End Date [facility] [address] [address] [place], [place] [id number] [phone] [id number] YAO MARRUFO Self - patient is the insured MEDICAID OF [facility] [address] [place] [address] [phone] [id number] YAO MARRUFO Self - patient is the insured Medical (General) History Medical History History ICD Code Attention deficit disorder Gastroesophageal reflux dise ase, EGD 05/12, esophagitis but no H. pylori/Chavarria's/celiac disease Colonoscopy 05/12, normal, ten-year follo wup Iron deficiency anemia Surgical History Surgery Date(Month/Year) gastric sleeve 2015 section x1 Cholecystectomy 11/11
--- OUTSIDE RECORDS SUMMARY | 2024-07-13 11:57 | XMS_ITS ---
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 Name Role Phone Ash Barajas MD Primary Care Provider Patrick Ramírez Jr Unavailable Allergies No Known Allergies REASON FOR VISIT Patient presents today for acid reflux , discuss egd Medications Medication SIG (Take, Route, Frequency, Duration) Notes Start Date End Date Status Amphetamine-Dextroamphetam ine 20 MG 1 tablet Orally once a day A ctive Omeprazole 20 MG 1 Orally Once a day for 30 day(s) 05/18/2019 Active Immunizations Vaccine Route Administration Date Status Comme nts Influenza Unknown 03/11/2023 Refused Social History Tobacco [...] Problem Status W/U Status Risk Notes Problem 740027321 Gastroesophageal reflux disease, unspecified whether esophagitis present (K21.9) Active confirmed Problem 700908143 Colon cancer screening (Z12.11) Active confirmed Vital Signs Temperature 97.3 degrees Fahrenheit 03/11/20 23 Blood pressure systolic 000 mm Hg 03/11/20 23 Blood pressure diastolic 00 mm Hg 023 Height 64 in 03/11/2023 Weight 149 lbs 03/11/2023 BMI 25.57 kg/m2 03/11/2023 Encounters Encounter Location Date Provider Diagnosis [facility] [address] [place] [address] 03/11/2023 Patrick Epps Jr Gastroesophageal reflux disease, unspecified whether esophagitis present K21.9 and Colon cancer screening Z12.11 Assessments Encounter Date Diagnosis (ICD Code) Assessment Notes Treatment Notes Treatment Clinical Notes Section Notes 03/11/2023 Gastroesophageal reflux disease, unspecified whether esophagitis present (ICD-10 - K21.9) Gastroesophageal reflux disease material was printed We discussed gastroesophageal reflux disease today. We discussed diet, lifestyle modifications, and weight management regarding the treatment of reflux. At this time she is doing well on her present regimen of omeprazole on a p.r.n. basis and auyo-nkn-ayagyrs antacids. She will continue this. She is up-to-date on colorectal cancer screening. She will be due for repeat colonoscopy in April 2029. She will be seen in followup on a p.r.n. basis. She is advised to call with any problems. 03/11/2023 Colon cancer screening (ICD-10 - Z12.11) We discussed gastroesophageal reflux disease today. We discussed diet, lifestyle modifications, and weight management regarding the treatment of reflux. At this time she is doing well on her present regimen of omeprazole on a p.r.n. basis and yhwy-ild-mnvsfof antacids. She will continue this. She is up-to-date on colorectal cancer screening. She will be due for repeat colonoscopy in April 2029. She will be seen in followup on a p.r.n. basis. She is advised to call with any problems. Plan Of Treatment Treatment Notes Assessment Notes Gastroesophageal reflux dise ase, unspecified whether esophagitis present Gastroesophageal reflux disease material was printed Next Appt Details Follow Up: 1 Year, Reason: Progress Notes * MARA LINNADOB:1975 (47 yo F)Acc No.[id number]:03/11/2023 Progress Notes Patient:?KRYSTAL LINNYTA Provider:?Patrick Epps MD :1975???Age:47 Y???Sex:Female D ate:03/11/2023 Address:[address] [place] [address] Pcp:Ash Barajas MD Subjective: * Chief Complaints: * ???1. Patient presents today for acid reflux , discuss egd. * HPI: ???New symptom(s):? Sherly is a pleasant 47-year-old woman seen today in consultation at the request of her primary care provider. She has a history of gastroesophageal reflux disease with substernal burning precipitated by typical foods. This include spicy foods and fatty foods. She has no dysphagia, hematemesis, or melena. Weight fluctuates somewhat based on her diet but has generally been stable. Appetite is good. Symptoms have been present since 2018. She controls these with rmza-phq-ptjopug antacids and 20 mg of omeprazole which she takes on a p.r.n. basis, usually one to 2 times per week. ?Previous evaluation with endoscopy and April 2019 showed chronic esophagitis but no evidence of Chavarria's esophagus, H. pylori, or celiac disease. She did have a mild iron deficiency anemia at that time. This has been stable. ?Colonoscopy at the same time was normal, ten-year followup was recommended. She has no complaints of rectal bleeding or change in her bowel habits. * ROS:?General/Constitutional:?Change in appetite?denies.?Fatigue?denies.?ENT:?Patient denies?difficulty swallowing.?Respiratory:?Patient denies?shortness of breath.?Cardiovascular:?Patient denies?chest pain.?Gastrointestinal:?Comments?See HPI for details.?Genitourinary:?Difficulty urinating?denies.?Incontinence?denies.?Musculoskeletal:?Patient denies?muscle aches.?Skin:?Patient denies?pruritis.?Neurologic:?Patient denies?low back pain.?Psychiatric:?Patient denies?mental or physical abuse.? * Medical History:?Attention d eficit disorder, Gastroesophageal reflux disease, EGD 05/12, esophagitis but no H. pylori/Chavarria's/celiac disease, Colonoscopy 05/12, normal, ten-year followup, Iron deficiency anemia. * Surgical History:?gastric sl eeve 2015, section x1 , Cholecystectomy 11/11. * Hospitalization/Major Diagno stic Procedure:?Denies Past Hospitalization. * Family History:?Father: dece ased.?Mother: alive, diagnosed with Heart disease.? No family history of colon cancer or liver cancer. * Social History:?Tobacco Use:?Tobacco Use/Smoking?Patient is a?nonsmoker.?Drugs/Alcohol:?Alcohol Screen?Did you have a drink containing alcohol in the past year??No,?Points?0,?Interpretation?Negative.?Miscellaneous:?Marital status: . Occupation: unemployed. * Medications:?Taking Amphetam ine-Dextroamphetamine 20 MG Tablet 1 tablet Orally once a day, Taking Omeprazole 20 MG Tablet Delayed Release 1 Orally Once a day, Discontinued MiraLax (colon prep) 8.3 ounce ((238) grams mixed with Gatorade or Crystal Light orally begin at 5:00 p.m. the day before the procedure, Medication List reviewed and reconciled with the patient * Allergies:?N.K.D.A. Objective: * Vitals:?Wt: 149 lbs, Ht: 64 in, BMI:25.57 Index, BP: 000/00 mm Hg, Temp: 97.3. * Examination: ???General Examination: ?GENERAL APPEARANCE:?in no acute distress.?HEAD:?normocephalic.?EYES:?sclera non-icteric.?ORAL CAVITY:?mucosa moist.?NECK/THYROID:?no lymphadenopathy.?SKIN:?anicteric.?HEART:?S1, S2 normal, no murmurs.?LUNGS:?clear to auscultation bilaterally.?CHEST:?normal shape and expansion.?ABDOMEN:?soft, nontender, nondistended, bowel sounds present, no organomegaly .?EXTREMITIES:?no clubbing, cyanosis, or edema.?PSYCH:?cognitive function intact.? Assessment: * Assessment: 1.?Gastroesophageal reflux d isease, unspecified whether esophagitis present - K21.9 (Primary)?2.?Colon cancer screening - Z12.11? We discussed gastroesophagea l reflux disease today. We discussed diet, lifestyle modifications, and weight management regarding the treatment of reflux. At this time she is doing well on her present regimen of omeprazole on a p.r.n. basis and cgsq-egv-bazqwvy antacids. She will continue this. She is up-to-date on colorectal cancer screening. She will be due for repeat colonoscopy in April 2029. She will be seen in followup on a p.r.n. basis. She is advised to call with any problems. Plan: * Treatment: * Immunizations:? Influenza (Not administered - Refused: Patient decision) * Procedure Codes:?3017F COLOR ECTAL CA SCREEN DOC REV, G9903 Pt scrn tbco id as non user, G9745 DOC RSN FOR NOT SCREEN/REC F/U HBP * Preventive Medicine:? ??Counseling:?Care goal follow-up plan:?Above Normal BMI Follow-up?Giving encouragement to exercise,?BMI management provided?Yes.? * Follow Up:?1 Year * * Sign off status: Completed true * Provider:?Patrick Epps MD Date:?1 05/12/2022 Generated for Bautista partida/Low/eTransmitting on:?07/13/2024 11:57 AM EDT History and Physical Notes * HPI (History of Present Illness) Category Sub-Category Detail Notes Category Not es New symptom(s) Sherly is a pleasant 47-year-old woman seen today in consultation at the request of her primary care provider. She has a history of gastroesophageal reflux disease with substernal burning precipitated by typical foods. This include spicy foods and fatty foods. She has no dysphagia, hematemesis, or melena. Weight fluctuates somewhat based on her diet but has generally been stable. Appetite is good. Symptoms have been present since 2018. She controls these with narh-acb-rcvbyyb antacids and 20 mg of omeprazole which she takes on a p.r.n. basis, usually one to 2 times per week. Previous evaluation with endoscopy and April 2019 showed chronic esophagitis but no evidence of Chavarria's esophagus, H. pylori, or celiac disease. She did have a mild iron deficiency anemia at that time. This has been stable. Colonoscopy at the same time was normal, ten-year followup was recommended. She has no complaints of rectal bleeding or change in her bowel habits. Examination Category Sub-Category Detail Notes Category Not es General Examination GENERAL APPEARANCE: in no acute di stress HEAD: normocephalic EYES: sclera non-icteric NECK/THYROID: no lymphadenopathy HEART: S1, S2 normal, no mu rmurs CHEST: normal shape and exp ansion LUNGS: clear to auscultatio n bilaterally ABDOMEN: soft, nontender, non distended, bowel sounds present, no organomegaly SKIN: anicteric EXTREMITIES: no clubbing, cyanosi s, or edema PSYCH: cognitive function i ntact ORAL CAVITY: mucosa moist
== END 2024-07-13 10:59 | disposition home or self-care (01) ==
LOC: HO.HWS 10:17
PROVIDERS: PCP Internal Medicine; Visit Provider Obstetrics & Gynecology
DX: N93.9 Abnormal uterine and vaginal bleeding, unspecified (principal)
CPT/HCPCS: 99213

== ENCOUNTER 2024-09-26 10:17 | Outpatient (AMB) | payer OTHER, SELFPAY ==
--- NOTE | 2024-09-26 10:33 | A.OFFPC_ITS ---
Vital Signs 09/26/24 10:44 Height 5 ft 4 in Weight 56.245 kg BMI 21.3 BP 108/64 Blood Pressure Location Lt brachial Position Sitting Respiration 16 Pulse 78 Temp 97.3 F Pulse Oximetry (%) 98 Oxygen Delivery Method Room Air Intake Visit Reasons: f/u freq uti Office Bookkeeper Required: No Accompanied by: Self / Same As Patient Allergies Latex Allergy (Mild, Uncoded 05/05/24 07:48) Rash Medication List - Last Reconciled 09/26/24 by KENYA Rao calcium polycarbophil (Fiber Laxative (calcium polycarbophil)) 1,250 mg (2 x 625 mg) PO DAILY 30 days clonidine HCl 0.1 - 0.2 mg PO BEDTIME PRN dextroamphetamine-amphetamine 20 mg (Adderall) 20 mg PO DAILY ferrous sulfate 325 mg PO BID 3 months pantoprazole 20 mg PO QAM PRN 30 days ropinirole 1 mg PO BEDTIME simethicone (Gas Relief (simethicone)) 125 mg PO ONCE PRN trazodone 50 - 100 mg PO BEDTIME PRN HPI HPI Comments History of Present Illness Details 49-year-old female with history of iron- deficiency anemia, anxiety/ADD, GERD, restless legs syndrome, and recurrent UTI presents to the office today for management of chronic conditions and to establish care. Recurrent UTI-reports this is often associated with yeast infection but does have history of recurrent positive UTI growing pansensitive E coli. Reports symptoms typically start with dysuria, increased frequency of urination, and then pruritus as well as abdominal cramping. Does report safe sex practices/monogamous with her . This has been ongoing for years Heavy menses/dyspareunia-following with Dr. El Osteoarthritis right hip and shoulder-following with Orthopedic surgery Varicose vein/edema-present for years. Does occasionally use compression stockings. Reports aching in the legs L>R Anxiety/ADD-follows with Ernestina Baez in Psychiatry. Stable on Adderall and clonidine as well as trazodone Concerns: Restless legs-previously was taking ropinirole [id number] Health maintenance: Last colonoscopy 04/2024, 10 year follow-up advised Last Pap smear 11/2021, next due 12/17 Last screening mammogram 01/2024, negative for malignancy. One year follow-up advised ROS: General: No fevers, malaise, unintentional weight loss HEENT: No blurred vision, diplopia. No sore throat, nasal congestion, rhinorrhea, sinus pain, ear pain Cardiovascular: No chest pain, palpitations, or leg edema Respiratory: No shortness of breath, wheezing, cough GI: No abdominal pain, nausea, vomiting, diarrhea, constipation, melena, hematochezia : see hpi MSK: No myalgia, back pain. see hpi Neuro: No headaches, weakness, paresthesias. see hpi Psych: see hpi Skin: No rashes or lesions EXAM: Constitutional - Awake and Alert, No apparent distress Eyes - PERRL Cardiovascular - S1S2, RRR, 1+ edema LLE. Prominent tortuous veins bilateral lower extremity with mild tenderness to palpation Respiratory - Normal lung expansion, Normal respiratory effort, No respiratory distress Extremities - no calf tenderness bilaterally, no swelling Skin - Warm/Dry Neurological - Alert & oriented x3 Psychological - Appropriate affect [facility] Medical History (Updated 09/26/24 @ 11:14 by KENYA Rao) Varicose vein of leg ADHD (attention deficit hyperactivity disorder) GERD (gastroesophageal reflux disease) Surgical History Hx of colonoscopy History of esophagogastroduodenoscopy (EGD) History of cholecystectomy History of breast lift Hx of abdominoplasty Social History Are you a primary career advisor to a significant other at home: No Do you presently have visiting nurse or other home services: No Patient Tobacco Use Status: Never used Tobacco Current occupational status: employed 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 1. Little interest or pleasure in doing things: not at all 2. Feeling down, depressed, or hopeless: not at all 3. Trouble falling or staying asleep, or sleeping too much: more than half the days 4. Feeling tired or having little energy: several days 5. Poor appetite or overeating: several days 6. Feeling bad about yourself - or that you are a failure or have let yourself or your family down: not at all 7. Trouble concentrating on things, such as reading the newspaper or watching television: several days 8. Moving or speaking so slowly that other people could have noticed. Or the opposite - being so fidgety or restless that you have been moving around a lot more than usual: not at all 9. Thoughts that you would be better off or of hurting yourself in some way: not at all Total score: 5 Source: Developed by Drs. Viniico Whitt, Linette Draper, Bryn Campos and colleagues, with an educational haleigh from [employer]. Thrive Questionnaire Date Thrive assessed: 09/26/24 I am a: Patient What is your living situation today?: I have a steady place to live Within the past 12 months, did the food you bought not last and you didn't have the money to get more?: Never true Within the past 12 months, did you worry whether your food would run out before you got money to buy more?: Never true Do you have trouble paying for medicines?: No Do you have trouble getting transportation to medical appointments?: No Do you have trouble paying your heating and electricity bill?: No Do you have trouble taking care of your child, family member or friend?: No Do you have trouble with day-to-day activities such as bathing, preparing meals, shopping, managing finances, etc.?: No Are you currently unemployed and looking for a job?: No Are you interested in more education?: No THRIVE Score: 0 FABIAN-7 AMB Questionnaire FABIAN-7 Date FABIAN - 7 assessed: 09/26/24 Feeling nervous, anxious, or on edge: 1 = Several days Not being able to stop or control worryin = Several days Worrying too much about different things: 0 = Not at all Trouble relaxin = Not at all Being so restless that it is hard to sit still: 1 = Several days Becoming easily annoyed or irritable: 1 = Several days Feeling afraid as if something awful might happen: 0 = Not at all Total FABIAN-7 score (0-4 normal; 5-9 mild; 10-14 moderate; 15-21 severe): 4 Source: Developed by Drs. Vinicio Whitt, Bryn Piper and colleagues, with an educational haleigh from [employer]. Physical exam (Primary Care) Vital Signs: Last Vital Signs Temp 97.3 F 09/26/24 10:44 Pulse 78 09/26/24 10:44 Resp 16 09/26/24 10:44 BP 108/64 09/26/24 10:44 Pulse Ox 98 09/26/24 10:44 Oxygen Delivery Method Room Air 09/26/24 10:44 BMI result Body Mass Index 21.3 Tobacco/Smoking Status: Tobacco use Status Patient Tobacco Use Status Never used Tobacco 09/26/24 10:34 PHQ-9: PHQ-9 Score PHQ-9: Total score 5 09/26/24 10:56 Thrive Assessment: Date of Thrive Assessment Date Thrive assessed 09/26/24 09/26/24 10:49 Coding Level of Care Code New Pt Level 4 (23946) Complex EM visit Add On G2211 Diagnoses Frequent UTI N39.0 Acid reflux K21.9 Varicose vein of leg I83.90 Anxiety F41.9 Assessment & Plan Assessment & Plan (1) Frequent UTI: Code(s): N39.0 - Urinary tract infection, site not specified Category: Medical Plan: UA/UC ordered. Referred to Urology (2) Acid reflux: Comment: H pylori neg Code(s): K21.9 - Gastro-esophageal reflux disease without esophagitis Category: Medical Plan: Continue pantoprazole and simethicone, avoid triggering foods/drinks (3) Varicose vein of leg: Code(s): I83.90 - Asymptomatic varicose veins of unspecified lower extremity Category: Medical Plan: Continue with compression stockings. Referral placed to vascular surgery (4) Anxiety: Comment: Very pleasant somewhat anxious 47-year-old female Discussed at length 30 minute Code(s): F41.9 - Anxiety disorder, unspecified Category: Medical Plan: Continue following with Dr. Baez. Continue medications as prescribed Plan Follow-up in the office for annual physical exam, labs be completed following visit today. Referrals placed as ordered. Prescribed ropinirole for restless legs syndrome Orders: Orders Complete Blood Count Auto Diff Today D64.9 - Anemia, unspecified, I83.90 - Asymptomatic varicose veins of unspecified lower extremity, Z13.220 - Encounter for screening for lipoid disorders UA CC w/rflx Micro + Cult Today N39.0 - Urinary tract infection, site not specified Basic Metabolic Panel Today D64.9 - Anemia, unspecified, I83.90 - Asymptomatic varicose veins of unspecified lower extremity, Z13.220 - Encounter for screening for lipoid disorders IRON PROFILE Today D64.9 - Anemia, unspecified, I83.90 - Asymptomatic varicose veins of unspecified lower extremity, Z13.220 - Encounter for screening for lipoid disorders Lipid Panel Today D64.9 - Anemia, unspecified, I83.90 - Asymptomatic varicose veins of unspecified lower extremity, Z13.220 - Encounter for screening for lipoid disorders Liver Panel Today D64.9 - Anemia, unspecified, I83.90 - Asymptomatic varicose veins of unspecified lower extremity, Z13.220 - Encounter for screening for lipoid disorders Vitamin D 25-OH Total Today D64.9 - Anemia, unspecified, I83.90 - Asymptomatic varicose veins of unspecified lower extremity, R53.83 - Other fatigue, Z13.220 - Encounter for screening for lipoid disorders Vitamin B12 Today R53.83 - Other fatigue Referrals Urology Referral N39.0 - Urinary tract infection, site not specified Vascular Surgery Referral I83.90 - Asymptomatic varicose veins of unspecified lower extremity, R60.0 - Localized edema Medications: New ropinirole administer 1-3 hours before bedtime 1 mg PO BEDTIME 90 tabs 1RF
[2024-09-26 10:44] VITALS: BP 108/64; PULSE 78; RESP 16; TEMP 36.3; O2SAT 98; BMI 21.3
== END 2024-09-26 11:22 | disposition home or self-care (01) ==
LOC: HO.HMCHD 10:18
PROVIDERS: Visit Provider Physician Assistant
DX: N39.0 Urinary tract infection, site not specified (principal); K21.9 Gastro-esophageal reflux disease without esophagitis; I83.90 Asymptomatic varicose veins of unspecified lower extremity; F41.9 Anxiety disorder, unspecified

== ENCOUNTER → 2024-09-26 10:17 | Outpatient (BNVA) | payer OTHER, SELFPAY | PROVIDERS: Visit Provider Physician Assistant | DX: N39.0 Urinary tract infection, site not specified (principal); K21.9 Gastro-esophageal reflux disease without esophagitis; F41.9 Anxiety disorder, unspecified; I83.899 Varicose veins of unspecified lower extremity with other complications; Z79.899 Other long term (current) drug therapy; Z13.30 Encounter for screening examination for mental health and behavioral disorders, unspecified | CPT/HCPCS: 99202 ==

== ENCOUNTER 2024-09-27 09:48 | Outpatient (REF) | payer OTHER, SELFPAY ==
[2024-09-27 10:01] LABS: MANUAL DIFF FLAG NO
[2024-09-27 10:23] LABS: Hematocrit 34.6 % (37.0-47.0); Hemoglobin 10.8 g/dl (12.0-16.0); Imm Gran Abs Auto 0.02 X10*3/uL (0.00-0.03); Imm Gran Pct Auto 0.3 % (0.0-0.4); Lymphocytes Absolute Auto 1.4 X10*3/uL (1.2-4.9); Mean Corpuscular HGB Conc 31.2 g/dl (31.0-35.0); Mean Corpuscular Hemoglobin 24.9 pg (27.0-33.0); Mean Corpuscular Volume 79.9 fL (80.0-98.0); NRBC Abs Auto 0.000 X10*3/uL (0.0-0.012); NRBC Pct Auto 0.0 /100WBC (0.0-0.2); Platelet Count 170 X10*3/uL (160-400); Red Blood Count 4.33 X10*6/uL (4.20-5.50); White Blood Count 6.0 X10*3/uL (4.8-10.8)
--- OUTSIDE RECORDS SUMMARY | 2024-09-27 10:26 | XMS_ITS | Patient Health Record ---
Author Organization [facility] Address [address] [place] [address] Care Team Providers Care Outside Sales Executive Name Role Phone Ash Barajas MD Primary Care Provider Patrikc Ramírez Jr Unavailable [phone] Allergies No Known Allergies Reason For Referral [...] Problem Status W/U Status Risk Notes Problem 671282469 Colon cancer screening (Z12.11) Active confirmed Problem 63828335 Rectal bleeding (K62.5) Active confirmed Problem 89172566 Iron deficiency anemia, unspecified iron deficiency anemia type (D50.9) Active confirmed Problem 653296937 Gastroesophageal reflux disease, unspecified whether esophagitis present (K21.9) Active confirmed Plan Of Treatment Future Test Test Name Order Date UPPER GI ENDOSCOPY 04/20/2019 COLONOSCOPY 04/20/2019 Insurance Providers Payer Name Payer Address Payer Phone Subscriber Number Group Number Insured Name Patient Relationship to Insured Coverage Start Date Coverage End Date [facility] [address] [address] [place], [place] [id number] [phone] [id number] YAO MARRUFO Self - patient is the insured [facility] [address] [place] [address] [phone] [id number] YAO MARRUFO Self - patient is the insured Medical (General) History Medical History History ICD Code Attention deficit disorder Gastroesophageal reflux dise ase, EGD 05/12, esophagitis but no H. pylori/Chavarria's/celiac disease Colonoscopy 05/12, normal, ten-year follo wup Iron deficiency anemia Surgical History Surgery Date(Month/Year) gastric sleeve 2015 section x1 Cholecystectomy 11/11
[2024-09-27 10:31] LABS: Appearance Urine Clear; Glucose Urine UA Negative (Negative); PH 5.5 (5.0-9.0); Specific Gravity - Urine 1.025 (1.005-1.025); UMIC TRIGGER UACC YES
[2024-09-27 11:03] LABS: UACC Culture Trigger YES
[2024-09-27 11:07] LABS: Alanine Aminotransferase 11 U/L (0-31); Albumin Level 4.2 g/dL (3.5-5.0); Alkaline Phosphatase 50 U/L (39-117); Anion Gap 10 (12-20); Aspartate Amino Transferase 20 U/L (5-31); Blood Urea Nitrogen 15 mg/dL (9-16); Calcium 9.6 mg/dL (8.4-10.2); Carbon Dioxide 25 mmol/L (22-29); Chloride 111 mmol/L (96-108); Cholesterol 138 mg/dL (<200); Estimated Glomerular Filt Rate > 60; HDL Cholesterol 61 mg/dL (>40); Iron 69 mcg/dL (30-160); Percent Iron Saturation 20 % (15-50); Potassium 4.0 mmol/L (3.3-5.1); Sodium 142 mmol/L (135-145); Total Iron Binding Capacity 351 mcg/dL (228-428); Total Protein 7.0 g/dL (6.5-8.0); Triglycerides 54 mg/dL (<150); Unsaturated Iron Binding 282 ug/dL
[2024-09-27 11:21] LABS: Vitamin B12 582 pg/mL (200-900)
== END 2024-09-27 09:49 | disposition home or self-care (01) ==
LOC: HO.LAB 09:48
PROVIDERS: PCP Physician Assistant; Visit Provider Physician Assistant
DX: Z13.220 Encounter for screening for lipoid disorders (principal); D64.9 Anemia, unspecified; I83.90 Asymptomatic varicose veins of unspecified lower extremity; N39.0 Urinary tract infection, site not specified; R53.83 Other fatigue
CPT/HCPCS: 36415; 80048; 80061; 80076; 81001; 82306; 82607; 83540; 85025; 87086

== ENCOUNTER 2024-10-27 12:44 | Outpatient (REF) | payer OTHER, SELFPAY ==
--- NOTE | ~2024-10-27 | FL_ITS ---
EXAMINATION: Fluoroscopy-guided right hip steroid injection. CLINICAL INDICATIONS: Unilateral primary right osteoarthritis. COMPARISON: Fluoroscopy-guided right hip steroid injection 10/10/2023. TECHNIQUE: Following explaining fluoroscopy-guided right hip steroid injection procedure, benefits and risk, a written consent was obtained. Patient was placed supine on fluoroscopy table and optimal site was selected along the right anterior hip joint and a marker placed on the skin. The marked area was cleaned and draped in usual sterile manner with 2% chlorhexidine solution. 1% lidocaine was injected puncture site. A 22-gauge spinal needle was then inserted from the marked site to the lateral border of right femoral head and neck, 2 mL of Omnipaque 350 nonionic contrast was injected and images obtained. After observing contrast within the joint space, 8 mL of 1% lidocaine and 1 mL/80 mg of Depo-Medrol was injected and needle withdrawn. Complete hemostasis achieved at puncture site. Sterile Band-Aid applied postprocedure. Patient tolerated procedure extremely well. FINDINGS/ FL/FL Guided Asp Inj Major Jt RT IMPRESSION: On right hip arthrogram there is contrast visualized in the right hip joint space. The hip joint space is maintained normal. No loose bodies or bony erosive changes seen. Successful fluoroscopy-guided right hip steroid injection performed without immediate complications. Fluoroscopy time: 45 seconds. Dose area product: 771.5 mGy/cm. Electronically signed by: Harpreet Snow MD 10/27/2024 02:47 PM EDT
--- OUTSIDE RECORDS SUMMARY | 2024-10-27 12:47 | XMS_ITS | Clinical Summary ---
Author Organization [facility] Address [address] [place] [address] Phone Care Team Providers Care Office Assistant Receptionist Name Role Phone Ash Barajas MD Primary Care Provider Social History Tobacco Use Types Packs/Day Years Used Date Smoking Tobacco: Never Assessed Education Answer Date Recorded Are you interested in more education? Not on iggy e 07/19/2022 Are you concerned about learning? Not on file 07/19/2022 No 07/19/2022 No 07/19/2022 Digital Access Answer Date Recorded No 08/16/2022 No 08/16/2022 No 08/16/2022 Reliable internet access at home? Not on file 08/16/2022 Device with a working camera? Not on file Comments Unknown Sex and Gender Information Value Date Recorded Sex Assigned at Not on file Legal Sex Female 9:43 AM EDT Gender Identity Not on file Sexual Orientation Not on file Plan of Treatment Health Maintenance Due Date Last Done Comments Adult Td,Tdap Booster 1977 LIPID PANEL 1977 DEPRESSION SCREENING 1989 SMOKING Hx and SMOKELESS TOB ACCO SCREENING 1990 HEPATITIS C SCREENING 07/03/1995 HIV ONE-TIME SCREENING (18-6 5 YEARS) 07/03/1995 PAP SMEAR 1998 MAMMOGRAM 2017 COLOGUARD 2022 COLONOSCOPY 2022 COLORECTAL CANCER SCREENING 2022 FIT TEST 2022 FOBT 2022 SIGMOIDOSCOPY 2022 VIRTUAL COLONOSCOPY 2022 COVID-19 VACCINE (2023-2 5 season) 2023 HEPATITIS A VACCINES Aged Out No long er eligible based on patient's age to complete this topic HIB VACCINES Aged Out No longer eligi ble based on patient's age to complete this topic MENINGOCOCCAL VACCINES (ACWY) Aged Out No longer eligible based on patient's age to complete this topic MENINGOCOCCAL VACCINES (B) Aged Out N o longer eligible based on patient's age to complete this topic PNEUMOCOCCAL VACCINES (0-49 years) Aged Out No longer eligible based on patient's age to complete this topic Medical Devices Not on file Insurance [facility] Member Subscriber Plan / Payer ( fective 2020-Present) Name:Sherly Cohen Relation to Subscriber:Self Name:Sherly Cohen Payer ID:[id number] Group ID:[id number] Type:Medicaid Address: [place] [id number] [facility] [place] [address] Care Teams Office Assistant Receptionist Relationship Specialty Start Date End Date Ash Barajas MD [address] [place] [address] [place] [address] PCP - General Internal Medicine 08/08/20 Additional Source Comments The information contained in this document represents components of the legal health record. It is not the complete legal health record.[facility]
--- OUTSIDE RECORDS SUMMARY | 2024-10-27 12:47 | XMS_ITS | Patient Health Record ---
Author Organization [facility] Address [address] [place] [address] Care Team Providers Care Director Safety Council Name Role Phone Karl (RETIRED) Ash CORDON Primary Care Provide r Unavailable Patrick Epps Jr Unavailable Allergies No Known Allergies Reason For Referral [...] Problem Status W/U Status Risk Notes Problem [id number] Colon cancer screening (Z12.11) Active confirmed Problem 61325677 Rectal bleeding (K62.5) Active confirmed Problem 46870983 Iron deficiency anemia, unspecified iron deficiency anemia type (D50.9) Active confirmed Problem 440703267 Gastroesophageal reflux disease, unspecified whether esophagitis present (K21.9) Active confirmed Plan Of Treatment Future Test Test Name Order Date UPPER GI ENDOSCOPY 04/20/2019 COLONOSCOPY 04/20/2019 Insurance Providers Payer Name Payer Address Payer Phone Subscriber Number Group Number Insured Name Patient Relationship to Insured Coverage Start Date Coverage End Date [facility] [address] [address] [place], [place] [id number] [phone] [id number] YAO MARRUFO Self - patient is the insured MEDICAID OF [employer] [address] [place] [phone] [id number] YAO MARRUFO Self - patient is the insured Medical (General) History Medical History History ICD Code Attention deficit disorder Gastroesophageal reflux dise ase, EGD 05/12, esophagitis but no H. pylori/Chavarria's/celiac disease Colonoscopy 05/12, normal, ten-year follo wup Iron deficiency anemia Surgical History Surgery Date(Month/Year) gastric sleeve 2015 section x1 Cholecystectomy 11/11
[2024-10-27] MEDS: Lidocaine HCl 2 % MPF 5 ML VIAL 8 ML SUBCUT (13:37)
[2024-10-27] MEDS: iohexoL 300 MG/ML 50 ML INFUS..BTL INTRAARTIC (13:45)
== END 2024-10-27 12:45 | disposition home or self-care (01) ==
LOC: HO.XRAY 12:44
PROVIDERS: PCP Physician Assistant; Visit Provider Physician Assistant
DX: M16.11 Unilateral primary osteoarthritis, right hip (principal)
CPT/HCPCS: 20610; 77002; J1010; J2003; Q9967

== ENCOUNTER → 2024-10-27 12:45 | Outpatient (BNV) | payer OTHER, SELFPAY | PROVIDERS: PCP Physician Assistant; Visit Provider Radiology Diagnostic Radiology | DX: M16.11 Unilateral primary osteoarthritis, right hip (principal) | CPT/HCPCS: 20610; 77002 ==

== ENCOUNTER 2024-11-08 13:07 | Outpatient (AMB) | payer OTHER, SELFPAY ==
--- NOTE | 2024-11-08 13:15 | A.OFFVIS_ITS ---
Vital Signs 11/08/24 13:24 Height 5 ft 4 in Weight 124 lb BMI 21.3 Handedness Right Intake Visit Reasons: Inj-right shoulder inj-last 02/08/24 Intake Note: Sherly is a 49 year old right hand dominant female who presents today for a repeat injection of her right shoulder. Patient reports her shoulder is in pain and is need of repeating the injection. Allergies Latex Allergy (Mild, Uncoded 05/05/24 07:48) Rash HPI HPI Inj-right shoulder inj-last 02/08/24: Details: Patient presents to the office today for repeat right shoulder injection. Last injection was 02/08/2024 and gave her good relief. 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 No ecchymosis, erythema, or edema. Forward flexion lacking 30 degrees. Abduction lacking 40 degrees. External rotation to end range. Able to reach back pocket. Negative cross-body reach. Negative drop arm. Negative empty can. NVI. Office Procedures AMB Joint Injection/Aspiration Joint Injection/Aspiration Primary Site: right shoulder Prep: site was prepped using aseptic technique, ethochloride spray was applied and injection warnings given Injected: 80 mg of, DepoMedrol, with 8 mL of (2% plain lidocaine) and in the subcromial space Approach Used: posterolateral Procedure: The patient tolerated the procedure well, but had some pain with the injection and there was some relief with the local anesthesia Coding 72129 - Large joint Procedure code (CPT) selection complete Assessment & Plan Assessment & Plan (1) Painful arc syndrome of right shoulder: Code(s): M75.101 - Unspecified rotator cuff tear or rupture of right shoulder, not specified as traumatic Category: Medical Plan The patient was offered a cortisone injection in the right shoulder with 80 mg of DepoMedrol. The patient was explained the risks, benefits, and alternatives to receiving this injection. After receiving consent for the injection, the patient had the procedure done while in the office today. The patient tolerated the procedure well with no complications. Follow-up will be PRN, or sooner if needed Coding Level of Care Code Est Pt Level 3 (85565) Diagnoses Painful arc syndrome of right shoulder M75.101 CPT Codes Coding - 22243 Large joint: 76117 - Large joint ([id number])
[2024-11-08 13:24] VITALS: BMI 21.3
--- OUTSIDE RECORDS SUMMARY | 2024-11-08 14:16 | XMS_ITS | Patient Health Record ---
Author Organization [facility] Address [address] [place] [address] Care Team Providers Care Fur Matcher Name Role Phone Karl (RETIRED) Ash CORDON [...] Problem Status W/U Status Risk Notes Problem 402013754 Colon cancer screening (Z12.11) Active confirmed Problem 80934851 Rectal bleeding (K62.5) Active confirmed Problem 85875577 Iron deficiency anemia, unspecified iron deficiency anemia type (D50.9) Active confirmed Problem 108440473 Gastroesophageal reflux disease, unspecified whether esophagitis present (K21.9) Active confirmed Plan Of Treatment Future Test Test Name Order Date UPPER GI ENDOSCOPY 04/20/2019 COLONOSCOPY 04/20/2019 Insurance Providers Payer Name Payer Address Payer Phone Subscriber Number Group Number Insured Name Patient Relationship to Insured Coverage Start Date Coverage End Date [facility] [address] [address] [place], [place] [id number] [phone] [id number] YAO MARRUFO Self - patient is the insured MEDICAID OF [place] [address] [place] [phone] [phone] [id number] YAO MARRUFO Self - patient is the insured Medical (General) History Medical History History ICD Code Attention deficit disorder Gastroesophageal reflux dise ase, EGD 05/12, esophagitis but no H. pylori/Chavarria's/celiac disease Colonoscopy 05/12, normal, ten-year follo wup Iron deficiency anemia Surgical History Surgery Date(Month/Year) gastric sleeve 2015 section x1 Cholecystectomy 11/11
--- OUTSIDE RECORDS SUMMARY | 2024-11-08 14:16 | XMS_ITS | Clinical Summary ---
Author Organization [facility] Address [address] [place] [address] Phone Care Team Providers Care Line Service Person Name Role Phone Ash Barajas MD Primary [...] topic Medical Devices Not on file Insurance [facility] [employer] [facility] Member Subscriber Plan / Payer ( fective 2020-Present) Name:Sherly Cohen Relation to Subscriber:Self Name:Sherly Cohen Payer ID:[id number] Group ID:[id number] Type:Medicaid Address: [place] [id number] [facility] Care Teams Line Service Person Relationship Specialty Start Date End Date Ash Barajas MD [address] [place] [address] [place] [address] PCP - General Internal Medicine 08/08/20 Additional Source Comments The information contained in this document represents components of the legal health record. It is not the complete legal health record.[facility]
== END 2024-11-08 13:39 | disposition home or self-care (01) ==
LOC: HO.HOS 13:07
PROVIDERS: PCP Physician Assistant; Visit Provider Physician Assistant
DX: M75.101 Unspecified rotator cuff tear or rupture of right shoulder, not specified as traumatic (principal)
CPT/HCPCS: 20610; 99213

== ENCOUNTER → 2024-11-08 13:07 | Outpatient (BNVA) | payer OTHER, SELFPAY | PROVIDERS: PCP Physician Assistant; Visit Provider Physician Assistant | DX: M75.101 Unspecified rotator cuff tear or rupture of right shoulder, not specified as traumatic (principal) | CPT/HCPCS: 20610; 99212; J1010; J2003 ==

== ENCOUNTER 2024-11-16 13:05 | Outpatient (AMB) | payer OTHER, SELFPAY ==
--- NOTE | 2024-11-16 13:07 | MHC.OFFVIS ---
Intake Visit Reasons: Recurrent UTI Intake Note: New Patient is present for recurrent UTI Urology Rx:none PVR:43 mls Blood Thinners:none Imaging completed: none Agricultural Research Technologist Required: No Accompanied by: Self / Same As Patient Allergies Latex Allergy (Mild, Uncoded 05/05/24 07:48) Rash HPI Comments Details: Sherly is a pleasant female. She is a patient of Dr. Pitt. She is seen for the following urologic conditions - recurrent urinary tract infection Effective bladder emptying Does describe having UTIs right before beginning of cycle Associated with constipation UA showed specific gravity 1.030 Will trial vitamin-C with methenamine for three-month Renal bladder ultrasound She will work on constipation with fermented foods Recurrent UTI UA today 1+ leukocytes negative nitrites Prior infections include - 12/14 E coli pansensitive, Klebsiella nitrofurantoin resistant, 05/17 E coli pansensitive, 10/14 reported negative but less than 10,000 CFU PFSH Medical History (Updated 09/26/24 @ 11:14 by KENYA Rao) Varicose vein of leg ADHD (attention deficit hyperactivity disorder) GERD (gastroesophageal reflux disease) Surgical History Hx of colonoscopy History of esophagogastroduodenoscopy (EGD) History of cholecystectomy History of breast lift Hx of abdominoplasty Social History Are you a primary live in caregiver to a significant other at home: No Do you presently have visiting nurse or other home services: No Patient Tobacco Use Status: Never used Tobacco Current occupational status: employed 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 Female Reproductive History Menstrual Age of Menarche: 16 Review of Systems Const Denies chills and Denies fever(s) Card Reports no additional complaints and Denies syncope Resp Denies cough GI Denies abdominal pain and Denies heartburn Reports as per HPI and Denies change in libido Neuro Denies syncope Psych Denies change in libido Endo Denies change in libido Physical Exam Const General: cooperative, healthy appearing, comfortable and no acute distress Orientation/consciousness: patient oriented x3 HEENT Face and sinus: Yes normal facial exam Mouth: moist mucous membranes Neck Neck: Yes normal visual inspection, Yes full ROM and Yes trachea midline Chest Chest palpation & inspection: normal inspection of the chest Resp Effort & Inspection: normal respiratory effort, able to speak in complete sentences and no respiratory distress GI Inspection: Yes normal to inspection Back/Spine/Pelvis Cervical Spine: normal cervical lordosis Thoracic/Lumbar Spine: thoracic and lumbar spine normal to inspection Skin General skin exam: no rashes or lesions noted Neuro General: patient oriented x3, gait normal, tone normal and moves all extremities Extrem General: Yes normal to inspection and Yes capillary refill normal Assessment & Plan Assessment & Plan (1) Frequent UTI: Code(s): N39.0 - Urinary tract infection, site not specified Category: Medical Plan Microgen Vitamin-C methenamine Orders: Orders US renal BI 3 Months N39.0 - Urinary tract infection, site not specified Medications: New ascorbic acid (vitamin C) 1,000 mg PO DAILY 90 tabs 1RF 90 days N39.0 - Urinary tract infection, site not specified methenamine hippurate 1 g PO DAILY 90 tabs 0RF 90 days N39.0 - Urinary tract infection, site not specified Patient Instructions: This note is constructed using voice recognition software. While every effort has been made to ensure accuracy line controller errors may have been included. Imaging studies, laboratory and physical exam results were discussed and reviewed in detail. No major barriers to patient understanding were identified. An opportunity to ask questions regarding the treatment plan was provided. All questions were answered. The patient expressed understanding and agreement with the above treatment plan. The patient is aware they should contact our office by phone for worsening of their current condition or the appearance of new urologic symptoms. Compliance is encouraged with any medications and followup testing that is ordered. It is a privilege to participate in the urologic care of your patient. If you have any questions or concerns regarding treatment for the above conditions, or other urologic issues, please do not hesitate to contact me. The office telephone contact is [phone]. Sincerely, Dr Nitin Witt MD, [facility] - Urology Compassionate Specialist Care for the Genitourinary System Coding Level of Care Code New Pt Level 4 (33593) Diagnoses Frequent UTI N39.0
--- OUTSIDE RECORDS SUMMARY | 2024-11-16 13:35 | XMS_ITS | Patient Health Record ---
Author Organization [facility] Address [address] [place] [address] Care Team Providers Care Recovery Manager Name Role Phone Karl (RETIRED) Ash CORDON [...] Problem Status W/U Status Risk Notes Problem 820800025 Colon cancer screening (Z12.11) Active confirmed Problem 30685760 Rectal bleeding (K62.5) Active confirmed Problem 12919417 Iron deficiency anemia, unspecified iron deficiency anemia type (D50.9) Active confirmed Problem 875532412 Gastroesophageal reflux disease, unspecified whether esophagitis present (K21.9) Active confirmed Plan Of Treatment Future Test Test Name Order Date UPPER GI ENDOSCOPY 04/20/2019 COLONOSCOPY 04/20/2019 Insurance Providers Payer Name Payer Address Payer Phone Subscriber Number Group Number Insured Name Patient Relationship to Insured Coverage Start Date Coverage End Date [facility] [address] [address] [place], [place] [id number] [phone] [id number] YAO MARRUFO Self - patient is the insured MEDICAID OF [email or web address] [address] [place] [address] [phone] [id number] YAO MARRUFO Self - patient is the insured Medical (General) History Medical History History ICD Code Attention deficit disorder Gastroesophageal reflux dise ase, EGD 05/12, esophagitis but no H. pylori/Chavarria's/celiac disease Colonoscopy 05/12, normal, ten-year follo wup Iron deficiency anemia Surgical History Surgery Date(Month/Year) gastric sleeve 2015 section x1 Cholecystectomy 11/11
--- OUTSIDE RECORDS SUMMARY | 2024-11-16 13:35 | XMS_ITS | Clinical Summary ---
Author Organization [facility] Address [address] [place] [address] Phone Care Team Providers Care Substation Wireman Name Role Phone Ash Barajas MD Primary [...] topic Medical Devices Not on file Insurance [employer] [facility] Member Subscriber Plan / Payer ( fective 2020-Present) Name:Sherly Cohen Relation to Subscriber:Self Name:Sherly Cohen Payer ID:[id number] Group ID:[id number] Type:Medicaid Address: [place] [id number] [facility] Care Teams Substation Wireman Relationship Specialty Start Date End Date Ash Barajas MD [address] [place] [address] [place] [address] PCP - General Internal Medicine 08/08/20 Additional Source Comments The information contained in this document represents components of the legal health record. It is not the complete legal health record.[facility]
== END 2024-11-16 13:34 | disposition home or self-care (01) ==
LOC: HO.HUSH 13:06
PROVIDERS: PCP Physician Assistant; Visit Provider Urology
DX: Z13.9 Encounter for screening, unspecified (principal); N39.0 Urinary tract infection, site not specified
CPT/HCPCS: 99204

== ENCOUNTER → 2024-11-16 13:05 | Outpatient (BNVA) | payer OTHER, SELFPAY | PROVIDERS: PCP Physician Assistant; Visit Provider Urology | DX: N39.0 Urinary tract infection, site not specified (principal); Z13.9 Encounter for screening, unspecified | CPT/HCPCS: 51798; 81003; 99202 ==

== ENCOUNTER 2024-11-23 11:24 | Outpatient (AMB) | payer OTHER, SELFPAY ==
--- NOTE | 2024-11-23 11:26 | A.OFFPC_ITS ---
Vital Signs 11/23/24 11:32 Height 5 ft 4 in Weight 63.957 kg BMI 24.2 BP 110/74 Respiration 12 Pulse 72 Pulse Source Pulse Oximeter Temp 97.5 F Temp Source Temporal Artery Scan Pulse Oximetry (%) 99 Oxygen Delivery Method Room Air Intake Visit Reasons: Annual PE Account Executive Sales Representative Required: No Accompanied by: Self / Same As Patient Allergies Latex Allergy (Mild, Uncoded 11/23/24 11:27) Rash Medication List - Last Reconciled 11/23/24 by KENYA Rao ascorbic acid (vitamin C) 1,000 mg PO DAILY 90 days bupropion HCl XL 150 mg PO QAM calcium polycarbophil (Fiber Laxative (calcium polycarbophil)) 1,250 mg (2 x 625 mg) PO DAILY 30 days clonidine HCl 0.1 - 0.2 mg PO BEDTIME PRN dextroamphetamine-amphetamine 20 mg (Adderall) 20 mg PO DAILY ferrous sulfate 325 mg PO BID 3 months fluconazole 150 mg PO Q3D 2 doses ibuprofen 800 mg PO Q8H PRN methenamine hippurate 1 g PO DAILY 90 days pantoprazole 20 mg PO QAM PRN 30 days penicillin V potassium 500 mg PO TID 5 days ropinirole 1 mg PO BEDTIME simethicone (Gas Relief (simethicone)) 125 mg PO ONCE PRN sumatriptan succinate take 1 tab at onset of headache; if no relief may repeat 1 tab after at least 2 hrs; max = 4 tabs/24 hr PO trazodone 50 - 100 mg PO BEDTIME PRN Tobacco use date assessed: 11/23/24 Dental Screening Dental Screen Date: 11/23/24 Did you have a dental visit in the last 12 months?: Yes Did you have a dental problem in the last 6 months where you did not have access to dental care?: No Was dental information given to patient?: No HPI HPI Comments History of Present Illness Details 49-year-old female with history of iron- deficiency anemia, anxiety/ADD, GERD, restless legs syndrome, and recurrent UTI presents to the office today for management of chronic conditions and for annual physical exam. She currently lives with her and [id number] feels safe there. 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 Reports rare alcohol use. No cigarette smoking. No drugs including marijuana. Follows a healthy diet but is not exercising formally. Recurrent UTI-reports this is often associated with yeast infection but does have history of recurrent positive UTI growing pansensitive E coli. Reports symptoms typically start with dysuria, increased frequency of urination, and then pruritus as well as abdominal cramping. Does report safe sex practices/monogamous with her . This has been ongoing for years Heavy menses/dyspareunia-following with Dr. El Osteoarthritis right hip and shoulder-following with Orthopedic surgery Varicose vein/edema-present for years. Does occasionally use compression stockings. Reports aching in the legs L>R. [facility] vascular Anxiety/ADD-follows with Ernestina Baez in Psychiatry. Stable on Adderall and clonidine as well as trazodone Concerns: Daily headaches- ongoing x several weeks. More frequently, am and pm. Describes pounding , throbbing, pressue. Located frontal. No occipital pain. Feels lightheadedness with the headache. Reports blurred vision with headache, jeannine tophobia, phonophobia. No aura. She does report she grinds her teeth at night but is unable to tolerate mouth guard. Health maintenance: Last colonoscopy 04/2024, 10 year follow-up advised Last Pap smear 11/2021, next due 12/17 Last screening mammogram 01/2024, negative for malignancy. One year follow-up advised Reviewed past medical, surgical, family, social history ROS: General: No fevers, malaise, unintentional weight loss HEENT: No blurred vision, diplopia. No sore throat, nasal congestion, rhinorrhea, sinus pain, ear pain. No hearing loss Neck - no adenopathy Cardiovascular: No chest pain, palpitations, or leg edema Respiratory: No shortness of breath, wheezing, cough Breast: No pain, palpable lumps, nipple inversion GI: No dysphagia, odynophagia, globus sensation. No abdominal pain, nausea, vomiting, diarrhea, constipation, melena, hematochezia : No dysuria, hematuria, increased urinary frequency, decreased urinary output. AIRDROP SYSTEMS TECHNICIAN: No abn vaginal bleeding or discharge MSK: No myalgia, back pain, arthralgias Neuro: No headaches, weakness, paresthesias Psych: no depression/anxiery. No AH/VH. No SI/HI Skin: No rashes or lesions EXAM: Constitutional - Awake and Alert, No apparent distress Eyes - PERRLA, EOMI. Anicteric Ears - external ears normal, canals clear, TMs intact and pearly tubbs with good cone of light Nose- septum midline, nares clear, no sinus tenderness Mouth/throat- mucosa moist, tongue and uvula midline, no erythema/edema or tonsillar adenopathy. Neck-trachea midline, thyroid symmetric without palpable nodules, no adenopathy Cardiovascular - S1S2, RRR, No edema Respiratory - Normal lung expansion, Normal respiratory effort, No respiratory distress, CTA bilaterally Gastrointestinal - NT / ND; +BS; No rebound or guarding - No CVA tenderness Extremities - no calf tenderness bilaterally, no swelling Musculoskeletal - Normal inspection, normal ROM Skin - Warm/Dry, no concerning lesions Neurological - Alert & oriented x3, CN II-XII in tact, 5/5 strength BUE and BLE, 2+ patellar reflexes, sensation intact Psychological - Appropriate affect PFSH Medical History Varicose vein of leg ADHD (attention deficit hyperactivity disorder) GERD (gastroesophageal reflux disease) Surgical History Hx of colonoscopy History of esophagogastroduodenoscopy (EGD) History of cholecystectomy History of breast lift Hx of abdominoplasty Family History Father Alcohol use disorder Paternal Grandfather Alcohol use disorder Paternal Grandmother Alcohol use disorder CAD (coronary artery disease) Social History Housing: House Are you a primary healthcare market consultant to a significant other at home: No Do you presently have visiting nurse or other home services: No Patient Tobacco Use Status: Never used Tobacco e-Cigarette/Vaping Use: Never Used service: No Current occupational status: employed 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 Vinicio Whitt, Linette Bryn Ralph and colleagues, with an educational haleigh from [employer]. Physical exam (Primary Care) Vital Signs: Last Vital Signs Temp 97.5 F 11/23/24 11:32 Pulse 72 11/23/24 11:32 Resp 12 11/23/24 11:32 BP 110/74 11/23/24 11:32 Pulse Ox 99 11/23/24 11:32 Oxygen Delivery Method Room Air 11/23/24 11:32 BMI result Body Mass Index 24.2 Tobacco/Smoking Status: Tobacco use Status Tobacco use date assessed 11/23/24 11/23/24 11:33 Patient Tobacco Use Status Never used Tobacco 11/23/24 11:33 e-Cigarette/Vaping Use Never Used 11/23/24 11:33 Thrive Assessment: Date of Thrive Assessment Date Thrive assessed 09/26/24 11/23/24 11:33 Coding Level of Care Code Est Pt Prev Care 40-64y(22267) Diagnoses Routine medical exam Z00.00 Anxiety F41.9 TMJ dysfunction M26.609 Frequent UTI N39.0 Assessment & Plan Assessment & Plan (1) Routine medical exam: Code(s): Z00.00 - Encounter for general adult medical examination without abnormal findings Plan: 49-year-old female presenting for annual physical exam (2) Anxiety: Comment: Very pleasant somewhat anxious 47-year-old female Discussed at length 30 minute Code(s): F41.9 - Anxiety disorder, unspecified Category: Medical Plan: Stable. Continue following with Psychiatry. Continue current therapies. (3) TMJ dysfunction: Code(s): M26.609 - Unspecified temporomandibular joint disorder, unspecified side Category: Medical Plan: Likely causing patient's headaches. Can continue current medications and is also referred to physical therapy. Recommend following up with her dentist to have a dental guard made. Also given prescription for ibuprofen and sumatriptan as needed (4) Frequent UTI: Code(s): N39.0 - Urinary tract infection, site not specified Category: Medical Plan: Continue medications as prescribed. Complete course of penicillin. Follow-up with urology Plan Follow-up in the office as scheduled in 6 months Most recent labs reviewed with patient Continue with screening mammograms, Pap smears, colonoscopies Continue following for annual skin exams and use sun protection Annual eye exams Wear seat belt in car Recommend regular exercise and healthy diet Orders: Orders PT Evaluation and Treatment 11/23/24 M26.609 - Unspecified temporomandibular joint disorder, unspecified side Medications: New ibuprofen 800 mg PO Q8H PRN 90 tabs 1RF pain sumatriptan succinate take 1 tab at onset of headache; if no relief may repeat 1 tab after at least 2 hrs; max = 4 tabs/24 hr PO 10 tabs 0RF
[2024-11-23 11:32] VITALS: BP 110/74; PULSE 72; RESP 12; TEMP 36.4; O2SAT 99; BMI 24.2
== END 2024-11-23 12:09 | disposition home or self-care (01) ==
LOC: HO.HMCHD 11:24
PROVIDERS: PCP Physician Assistant; Visit Provider Physician Assistant
DX: Z00.00 Encounter for general adult medical examination without abnormal findings (principal); F41.9 Anxiety disorder, unspecified; M26.609 Unspecified temporomandibular joint disorder, unspecified side; N39.0 Urinary tract infection, site not specified

== ENCOUNTER → 2024-11-23 11:24 | Outpatient (BNVA) | payer OTHER, SELFPAY | PROVIDERS: PCP Physician Assistant; Visit Provider Physician Assistant | DX: Z00.00 Encounter for general adult medical examination without abnormal findings (principal); F41.9 Anxiety disorder, unspecified; M26.609 Unspecified temporomandibular joint disorder, unspecified side; N39.0 Urinary tract infection, site not specified | CPT/HCPCS: 99396 ==

== ENCOUNTER 2024-12-14 10:29 | Outpatient (REF) | payer OTHER, SELFPAY ==
--- NOTE | ~2024-12-14 | US_ITS ---
EXAMINATION: US TRIPLEX LOWER EXTREMITY, BILATERAL CLINICAL INFORMATION: Edema, both lower extremities COMPARISON: None available. TECHNIQUE: Color-flow triplex imaging with spectral analysis and compression Doppler were performed on the bilateral lower extremities. FINDINGS: Respiratory variation, normal compression and augmented flow demonstrated in the interrogated common femoral vein, superficial femoral vein, profunda femoral vein, popliteal vein and midcalf peroneal and posterior tibial venous segments both lower extremities. There is no Sullivan's cyst. US/US venous duplex LE BI IMPRESSION: No acute deep venous thrombosis interrogated veins of both lower extremities. Negative for DVT. Electronically signed by: Daniel Pedraza MD 12/14/2024 11:21 AM EDT
--- OUTSIDE RECORDS SUMMARY | 2024-12-14 13:07 | XMS_ITS | Patient Health Record ---
Author Organization [facility] Address [address] [place] [address] Care Team Providers Care Fire Hazard Inspector Name Role Phone Karl (RETIRED) Ash CORDON Primary Care Provide r Unavailable Patrick Epps Jr Unavailable [phone] Allergies No Known Allergies Reason For Referral [...] Problem Status W/U Status Risk Notes Problem 498100903 Colon cancer screening (Z12.11) Active confirmed Problem 22517004 Rectal bleeding (K62.5) Active confirmed Problem 20367035 Iron deficiency anemia, unspecified iron deficiency anemia type (D50.9) Active confirmed Problem 696879985 Gastroesophageal reflux disease, unspecified whether esophagitis present (K21.9) Active confirmed Plan Of Treatment Future Test Test Name Order Date UPPER GI ENDOSCOPY 04/20/2019 COLONOSCOPY 04/20/2019 Insurance Providers Payer Name Payer Address Payer Phone Subscriber Number Group Number Insured Name Patient Relationship to Insured Coverage Start Date Coverage End Date [facility] [address] [address] [place], [place] [id number] [phone] [id number] YAO MARRUFO Self - patient is the insured MEDICAID OF [employer] [address] [place] [address] [phone] [id number] YAO MARRUFO Self - patient is the insured Medical (General) History Medical History History ICD Code Attention deficit disorder Gastroesophageal reflux dise ase, EGD 05/12, esophagitis but no H. pylori/Chavarria's/celiac disease Colonoscopy 05/12, normal, ten-year follo wup Iron deficiency anemia Surgical History Surgery Date(Month/Year) gastric sleeve 2015 section x1 Cholecystectomy 11/11
--- OUTSIDE RECORDS SUMMARY | 2024-12-14 13:07 | XMS_ITS | Clinical Summary ---
Author Organization [facility] Address [address] [place] [address] Phone Care Team Providers Care Clinical Reimbursement Specialist Name Role Phone Ash Barajas MD Primary [...] DEPRESSION SCREENING 1989 SMOKING Hx and SMOKELESS TOBACCO SCREENING 1990 HEPATITIS C SCREENING 07/03/1995 HIV ONE-TIME SCREENING (18-6 5 YEARS) 07/03/1995 PAP SMEAR 1998 MAMMOGRAM 2017 COLOGUARD 2022 COLONOSCOPY 2022 COLORECTAL CANCER SCREENING 2022 FIT TEST 2022 FOBT 2022 SIGMOIDOSCOPY 2022 VIRTUAL COLONOSCOPY 2022 INFLUENZA VACCINE (#1) 2024 6, 03/03/2012 COVID-19 VACCINE (2023-2 5 season) 2024 HEPATITIS A VACCINES Aged Out No long [...] (0-49 years) Aged Out No longer eligible b ased on patient's age to complete this topic Medical Devices Not on file Insurance [employer] O [employer] [facility] Care Teams Clinical Reimbursement Specialist Relationship Specialty Start Date End Date Ash Barajas MD [address] [place] [address] [place] [address] PCP - General Internal Medicine 08/08/20 Additional Source Comments The information contained in this document represents components of the legal health record. It is not the complete legal health record.[facility]
== END 2024-12-14 10:30 | disposition home or self-care (01) ==
LOC: HO.US 10:29
PROVIDERS: PCP Physician Assistant; Visit Provider Internal Medicine
DX: R60.0 Localized edema (principal)
CPT/HCPCS: 93970

== ENCOUNTER → 2024-12-14 10:32 | Outpatient (BNV) | payer OTHER, SELFPAY | PROVIDERS: PCP Physician Assistant; Visit Provider Radiology Diagnostic Radiology | DX: R60.0 Localized edema (principal) | CPT/HCPCS: 93970 ==

== ENCOUNTER 2025-01-18 08:29 | Outpatient (REF) | payer OTHER, SELFPAY ==
--- NOTE | ~2025-01-18 | US_ITS ---
EXAMINATION: US LOWER EXTREMITY VENOUS (REFLUX EXAM), BILATERAL CLINICAL INFORMATION: R60.0 COMPARISON: None. TECHNIQUE: Color flow triplex imaging and compression Doppler was performed to evaluate both the deep and the superficial systems bilaterally. To evaluate the superficial system, the examination was performed in the upright position. Color-flow Doppler ultrasound and compression ultrasound were utilized. In addition, maneuvers were utilized to demonstrate reflux. FINDINGS: 1. DEEP VENOUS ULTRASOUND OF THE RIGHT LOWER EXTREMITY: Common Femoral Vein: Compressible, normal respiratory variation and augmented flow. Femoral Vein: Compressible, normal color flow and augmentation. Popliteal Vein: Compressible, normal augmentation. Deep Reflux: There is no evidence of reflux in the deep system in either the common femoral vein, superficial femoral or the popliteal vein. There is no evidence of a Sullivan's cyst. 2. SUPERFICIAL ULTRASOUND WITH DOPPLER OF RIGHT LOWER EXTREMITY: GREAT SAPHENOUS VEIN: Saphenofemoral Junction: 0.5 cm; Reflux: 0 ms Proximal Thigh: 0.4 cm; Reflux: 0 ms Mid Thigh: 0.3 cm; Reflux: 0 ms Distal Thigh: 0.3 cm; Reflux: 0 ms At Knee: 0.2 cm; Reflux: 0 ms Proximal Calf: 0.3 cm; Reflux: 0 ms Mid Calf: 0.2 cm; Reflux: 0 ms Distal Calf: 0.3 cm; Reflux: 0 ms DUPLICATED MEDIAL GREAT SAPHENOUS VEIN: Diameter: None imaged Reflux: NA DUPLICATED LATERAL GREAT SAPHENOUS VEIN: Diameter: 0.3 cm. Reflux: NA SMALL SAPHENOUS VEIN: Saphenopopliteal Junction: 0.2 cm; Reflux: 0 ms Proximal: 0.2 cm; Reflux: 0 ms Distal: 0.3 cm; Reflux: 0 ms VEIN OF GIACOMINI: Size: NA Reflux: NA PERFORATORS: Location: Proximal and mid calf. Distal thigh. Size: 0.1-0.3 cm. Reflux: NA VARICOSITIES: Location: Mid calf. Proximal and distal thigh. Size: 0.3 cm. Reflux: NA 3. DEEP VENOUS ULTRASOUND OF THE LEFT LOWER EXTREMITY: Common Femoral Vein: Compressible, normal respiratory variation and augmented flow. Femoral Vein: Compressible, normal color flow and augmentation. Popliteal Vein: Compressible, normal augmentation. Deep Reflux: There is no evidence of reflux in the deep system in either the common femoral vein, superficial femoral or the popliteal vein. There is no evidence of a Sullivan's cyst. 4. SUPERFICIAL ULTRASOUND WITH DOPPLER OF LEFT LOWER EXTREMITY: GREAT SAPHENOUS VEIN: Saphenofemoral Junction: 0.7 cm; Reflux: 0 ms Proximal Thigh: 0.5 cm; Reflux: 0 ms Mid Thigh: 0.4 cm; Reflux: 1756 ms Distal Thigh: 0.4 cm; Reflux: 0 ms At Knee: 0.4 cm; Reflux: 0 ms Proximal Calf: 0.2 cm; Reflux: 0 ms Mid Calf: 0.3 cm; Reflux: 0 ms Distal Calf: cm; Reflux: 0 ms DUPLICATED MEDIAL GREAT SAPHENOUS VEIN: Diameter: None imaged Reflux: NA DUPLICATED LATERAL GREAT SAPHENOUS VEIN: Diameter: 0.3 cm. Reflux: NA SMALL SAPHENOUS VEIN: Saphenopopliteal Junction: 0.2 cm; Reflux: 0 ms Proximal: 0.2 cm; Reflux: 0 ms Distal: 0.2 cm; Reflux: 0 ms VEIN OF GIACOMINI: Size: NA Reflux: NA PERFORATORS: Location: Proximal and mid calf. Distal thigh. Size: 0.2-0.3 cm. Reflux: NA VARICOSITIES: Location: Mid thigh and distal calf. Size: 0.3-0.4 cm. Reflux: NA US/US venous insuf bilat IMPRESSION: Right: No venous insufficiency. Varices and perforators without reflux. Left: Venous insufficiency, great saphenous vein at the mid thigh. Perforators and varices without reflux. Electronically signed by: Daniel Pedraza MD 01/18/2025 09:32 AM EDT
== END 2025-01-18 08:30 | disposition home or self-care (01) ==
LOC: HO.US 08:29
PROVIDERS: PCP Physician Assistant; Visit Provider Physician Assistant
DX: R60.0 Localized edema (principal); I83.90 Asymptomatic varicose veins of unspecified lower extremity
CPT/HCPCS: 93970

== ENCOUNTER → 2025-01-18 08:31 | Outpatient (BNV) | payer OTHER, SELFPAY | PROVIDERS: PCP Physician Assistant; Visit Provider Radiology Diagnostic Radiology | DX: I87.2 Venous insufficiency (chronic) (peripheral) (principal) | CPT/HCPCS: 93970 ==

== ENCOUNTER 2025-02-14 07:54 | Outpatient (REF) | payer OTHER, SELFPAY ==
--- NOTE | ~2025-02-14 | US_ITS ---
CLINICAL HISTORY: N39.0 - Urinary tract infection, site not specified US kidneys Comparison: 05/29/2023 Findings: Right kidney normal size and echotexture, 12.7 cm length. No hydronephrosis. Normal color flow. Left kidney normal size and echotexture, 12.6 cm length. No hydronephrosis. Normal color flow. Impression: 1. Unremarkable kidneys This document has been electronically signed by: Armand Ritter MD on 02/14/2025 16:47:00
--- OUTSIDE RECORDS SUMMARY | 2025-02-14 08:01 | XMS_ITS | Clinical Summary ---
Author Organization [facility] Address [address] [place] [id number] Phone Care Team Providers Care Camp Recreation Specialist Name Role Phone Ash Barajas MD [...] VACCINE (#1) 2024 6, 03/03/2012 COVID-19 VACCINE (2024-2 6 season) 2024 HEPATITIS A VACCINES Aged Out [...] topic Medical Devices Not on file Insurance [employer] [facility] Care Teams Camp Recreation Specialist Relationship Specialty Start Date End Date Ash Barajas MD [address] [place] [address] [place] [address] PCP - General Internal Medicine 08/08/20 Additional Source Comments The information contained in this document represents components of the legal health record. It is not the complete legal health record.[facility]
== END 2025-02-14 07:55 | disposition home or self-care (01) ==
LOC: HO.US 07:54
PROVIDERS: PCP Physician Assistant; Visit Provider Urology
DX: N39.0 Urinary tract infection, site not specified (principal)
CPT/HCPCS: 76775

== ENCOUNTER → 2025-02-14 07:56 | Outpatient (BNV) | payer OTHER, SELFPAY | PROVIDERS: PCP Physician Assistant; Visit Provider Radiology Diagnostic Radiology | DX: N39.0 Urinary tract infection, site not specified (principal) | CPT/HCPCS: 76775 ==

== ENCOUNTER 2025-02-23 11:00 | Outpatient (REF) | payer OTHER, SELFPAY ==
--- NOTE | ~2025-02-23 | MM_ITS ---
EXAMINATION: MM SCREENING DIGITAL BREAST TOMOSYNTHESIS, BILATERAL CLINICAL INFORMATION: Screening. Asymptomatic. History of bilateral mastopexy according to previous reports. COMPARISON: Comparison made to multiple prior, most recent February 11, 2024, and most remote November 12, 2017. TECHNIQUE: Digital breast tomosynthesis is performed in mediolateral oblique and craniocaudal views along with computer-aided detection (CAD). Synthesized 2D images are generated from the tomosynthesis. FINDINGS: BREAST COMPOSITION: The breasts are heterogeneously dense, which may obscure small masses. BILATERAL BREASTS: Status post bilateral mastopexy; findings are stable since 2021. No significant masses, suspicious calcifications or other abnormalities are seen in either breast. MM/MM tomosynthesis screening BI IMPRESSION: BILATERAL BREASTS: Benign, no mammographic evidence of malignancy. Normal interval follow-up is recommended in 12 months. ASSESSMENT: BI-RADS: Category 2: Benign RECOMMENDATION: Routine annual mammography screening. FOLLOW-UP: 1 year F/U This examination should not preclude the clinical evaluation of a suspicious palpable abnormality. This patient's information was entered into a reminder system with a target due date for their next mammogram. Electronically signed by: Sushma Hernandez MD 02/23/2025 01:12 PM [facility]
== END 2025-02-23 11:01 | disposition home or self-care (01) ==
LOC: HO.MAMMO 11:00
PROVIDERS: PCP Physician Assistant; Referring Provider Physician Assistant; Visit Provider Internal Medicine
DX: Z12.31 Encounter for screening mammogram for malignant neoplasm of breast (principal)
CPT/HCPCS: 77063; 77067

== ENCOUNTER → 2025-02-23 11:15 | Outpatient (BNV) | payer OTHER, SELFPAY | PROVIDERS: PCP Physician Assistant; Referring Provider Physician Assistant; Visit Provider Radiology Body Imaging | DX: Z12.31 Encounter for screening mammogram for malignant neoplasm of breast (principal) | CPT/HCPCS: 77063; 77067 ==